=== PATIENT | male | born 1930 | race Caucasian/White ===

== ENCOUNTER → 2016-10-26 | Outpatient (CLI) | payer BC ==
[2016-10-26 11:34] LABS: Basophils % (A) 1 %; CH 30.4; CHCM 33.5; Eosinophils # (A) 0.3 k/uL (0-0.7); Eosinophils % (A) 4 %; HCT 42.3 % (39.0-53.0); HDW 2.62; HGB 13.8 gm/dL (13.0-17.5); Luc # (Auto) 0.13; Luc % (Auto) 2; Lymphocytes # (A) 2.8 k/uL (1.0-4.8); Lymphocytes % (A) 43 %; MCH 29.8 pg (25.0-35.0); MCHC 32.6 g/dL (31.0-37.0); MCV 91.3 fL (80.0-100.0); Mean Platelet Volume 6.6; Monocytes # (A) 0.4 k/uL (0-1.0); Monocytes % (A) 6 %; Neutrophils % (A) 45 %; RBC 4.63 m/uL (4.30-5.90); RDW 13.5 % (11.5-15.5); WBC 6.6 k/uL (3.8-10.6); WBC (Perox) 6.61
[2016-10-26 11:53] LABS: ALT 48 U/L (21-72); AST 37 U/L (17-59); Alkaline Phosphatase 115 U/L (38-126); Anion Gap 13 mmol/L; Blood Urea Nitrogen 22 mg/dL (9-20); Calcium 9.4 mg/dL (8.4-10.2); Carbon Dioxide 27 mmol/L (22-30); Chloride 103 mmol/L (98-107); Cholesterol 242 mg/dL (<200); Glucose 101 mg/dL (74-99); HDL Cholesterol 42 mg/dL (40-60); Non-African American GFR(MDRD) >60 (>60 ml/min/1.73 sqM); Potassium 4.9 mmol/L (3.5-5.1); Sodium 143 mmol/L (137-145); Total Bilirubin 0.5 mg/dL (0.2-1.3); Total Protein 7.9 g/dL (6.3-8.2); Triglycerides 233 mg/dL (<150)
[2016-10-26 12:25] LABS: Prostate Specific Antigen 2.11 ng/mL (0.00-4.00)
[2016-10-26 12:29] LABS: Hemoglobin A1C 5.7 % (4.2-6.1)
== END | disposition home or self-care (01) ==
LOC: LABWHC1 10:48
PROVIDERS: ATTEND Internal Medicine Geriatric Medicine
DX: N18.9 Chronic kidney disease, unspecified (principal); K21.9 Gastro-esophageal reflux disease without esophagitis; R73.9 Hyperglycemia, unspecified; E78.00 Pure hypercholesterolemia, unspecified; N40.0 Benign prostatic hyperplasia without lower urinary tract symptoms; E03.9 Hypothyroidism, unspecified
CPT/HCPCS: 36415; 80053; 80061; 83036; 84153; 84439; 84443; 85025

== ENCOUNTER 2016-12-12 14:12 | Emergency (ER) | payer BC ==
[2016-12-12] MEDS ORDERED: ACETAMINOPHEN TAB 500 MG TAB PO STA (14:43)
--- NOTE | 2016-12-12 14:48 | ED ---
General Adult HPI - General Chief complaint: Upper Respiratory Infection Stated complaint: Chest Congestion/Pain Time Seen by Provider: 12/12/16 14:24 Source: patient, family, RN notes reviewed, old records reviewed Mode of arrival: wheelchair - History of Present Illness Initial comments: Chief complaint and history of present illness this 86-year-old male here with his family. The patient reports approximately one week ago he was started on azithromycin and a steroid pack because of bronchitis symptoms. He reports she started feeling better after day or 2 when he coughed brought phlegm up. Now he has a dry cough, frequently, which makes it difficult to sleep. Planes of anterior chest wall discomfort with coughing. Reproducible with coughing. All systems are reviewed. Past medical problems significant for CVA of which there weren't any persistent deficits. History of hypertension, renal calculus one time. Denies any surgeries. Family history diabetes. ALLERGIES none nonsmoker nondrinker. - Related Data Home Medications Medication Instructions Recorded Confirmed amLODIPine BES/OLMESARTAN MED 1 tab PO DAILY 01/15/15 12/12/16 [Elsa 10-20 mg Tablet] Loratadine-Pseudoeph 10-240 mg 1 tab PO DAILY PRN 01/16/15 12/12/16 [Claritin-D 24 Hr] Aspirin 325 mg PO DAILY PRN 01/20/16 12/12/16 Azithromycin [Zithromax Z-pack] See Taper PO DIRECTED 12/12/16 12/12/16 methylPREDNISolone [Medrol Dose See Taper PO DAILY 12/12/16 12/12/16 Pack] Previous Rx's Medication Instructions Recorded Benzonatate [Tessalon Perles] 100 mg PO TID PRN #15 capsule 12/12/16 Oseltamivir [Tamiflu] 75 mg PO Q12HR #10 cap 12/12/16 Allergies Allergy/AdvReac Type Severity Reaction Status Date / Time No Known Allergies Allergy Verified 12/12/16 14:29 Review of Systems ROS Statement: Those systems with pertinent positive or pertinent negative responses have been documented in the HPI. ROS Other: All systems not noted in ROS Statement are negative. Past Medical History Past Medical History: CVA/TIA, Hypertension Additional Past Medical History / Comment(s): HX RENAL CALCULUS History of Any Multi-Drug Resistant Organisms: None Reported Past Surgical History: No Surgical Hx Reported Additional Past Surgical History / Comment(s): colonoscopy Past Anesthesia/Blood Transfusion Reactions: No Reported Reaction Additional Past Anesthesia/Blood Transfusion Reaction / Comment(s): NO FAMILY HX KNOWN Past Psychological History: No Psychological Hx Reported Smoking Status: Never smoker Past Alcohol Use History: None Reported Past Drug Use History: None Reported General Exam - General Exam Comments Initial Comments: My physical exam; patient's only complaint is that of a cough and frequent coughing has caused upper abdominal and lower chest muscle pain. He starts coughing he has difficulty stopping. Just finishing a Z-Aureliano and steroids. Vital signs temp 101.2 pulse 62 her story rate 18 pulse ox 96% room air blood pressure 130/77. Mildly elevated systolic noted. The patient will be following up with his family physician in the next 1-4 weeks. General: Eye: Pupils are equal, round and reactive to light, extra-ocular movements are intact ; there is normal conjunctiva bilaterally. No signs of icterus. Ears, nose, mouth and throat: There are moist mucous membranes and no oral lesions. Neck: The neck is supple, there is no tenderness , no anterior cervical lymphadenopathy, no carotid bruit. Cardiovascular: There is a regular rate and rhythm. No murmur, rub or gallop is appreciated. Respiratory: Lungs are clear to auscultation, respirations are non-labored, breath sounds are equal. No wheezes, stridor, rales, or rhonchi. Planes of a dry hacking cough persistent. Difficult to sleep with it. Causing lower chest and upper abdominal muscle discomfort which is reproducible. Gastrointestinal: Soft, non-distended, non-tender abdomen without masses or organomegaly noted. There is no rebound or guarding present. No CVA tenderness. Bowel sounds are unremarkable. Back: No complaint of back pain. Musculoskeletal: Normal ROM, no tenderness, There is no pedal edema. There is no calf tenderness or swelling. Sensation intact. Pulses equal bilaterally 2+. Neurological: No neuro deficits noted or complained of. Skin: Skin is warm and dry and no rashes or lesions are noted. Course Vital Signs 12/12/16 12/12/16 14:13 14:50 Temperature 101.2 F H Pulse Rate 62 Respiratory 18 16 Rate Blood Pressure 138/77 O2 Sat by Pulse 96 Oximetry EKG Findings - EKG Comments: EKG Findings:: EKG was done and reviewed at 1455 showing normal sinus rhythm age undetermined inferior infarct. No acute ST elevation no ectopy no ischemic changes. Rate 87 MS interval is 158 QRS [address] QT [address] Thurston. This EKG was compared to one done on 07/07/2015 and they have very similar. Dr. Thurston Medical Decision Making - Medical Decision Making Medical decision making; the patient was positive for influenza B. Chest x-ray was done and reviewed by radiologist his findings are there is a chronic parenchymal changes without suspicious no focal airspace opacity, pleural effusion, or pneumothorax seen. Cardiac silhouette size is within normal limits with ectatic thoracic aorta. The osseous structures are intact. Impression; no suspicious acute pulmonary process. No significant change from prior. As read by Dr. zarco The patient will be started on Tamiflu, Cipro milligrams twice a day for 5 days. Told increase his fluids. Use Tylenol or ibuprofen for control of fever. Also Tessalon Perles to control his cough. Advised to follow-up with family physician. - Lab Data Lab Results 12/12/16 Range/Units 14:45 Influenza Type A RNA Not Detected (Not Detectd) Influenza Type B (PCR) Detected H (Not Detectd) Disposition Clinical Impression: Influenza B Disposition: HOME SELF-CARE Condition: Fair Instructions: Influenza (ED) Additional Instructions: Increase fluids. Use Tylenol or ibuprofen for fever. Take Tamiflu one tablet twice day for 5 days. Use Tessalon Perles to control cough as directed. Follow -up with family physician. Prescriptions: Benzonatate [Tessalon Perles] 100 mg PO TID PRN #15 capsule PRN Reason: Cough Oseltamivir [Tamiflu] 75 mg PO Q12HR #10 cap Time of Disposition: 15:48
--- NOTE | 2016-12-12 15:34 | XR ---
EXAMINATION TYPE: XR chest 2V DATE OF EXAM: 12/12/2016 3:23 PM COMPARISON: Prior chest x-ray December 04, 2014. HISTORY: Cough and fever. TECHNIQUE: Frontal and lateral views of the chest are obtained. FINDINGS: There is chronic parenchymal change without suspicious new focal air space opacity, pleura l effusion, or pneumothorax seen. The cardiac silhouette size is within normal limits with ectatic t horacic aorta. The osseous structures are intact. IMPRESSION: No suspicious acute pulmonary process. No significant change from prior.
[2016-12-12 16:06] VITALS: BP 140/56; PULSE 81; RESP 20; TEMP 100
== END 2016-12-12 16:01 | disposition home or self-care (01) ==
LOC: EC 14:12
DX: J11.1 Influenza due to unidentified influenza virus with other respiratory manifestations (principal); I10 Essential (primary) hypertension; Z79.82 Long term (current) use of aspirin; Z86.73 Personal history of transient ischemic attack (TIA), and cerebral infarction without residual deficits; Z79.899 Other long term (current) drug therapy
CPT/HCPCS: 71020; 87502; 93005; 99284

== ENCOUNTER 2016-12-16 16:23 | Emergency (ER) | payer BC ==
[2016-12-16 16:33] VITALS: BP 106/58; RESP 16; TEMP 98
[2016-12-16] MEDS ORDERED: IPRATROPIUM-ALBUTEROL 3 ML NEB INHALATION STA (17:10)
--- NOTE | 2016-12-16 17:15 | ED ---
URI HPI - General Chief Complaint: Upper Respiratory Infection Stated Complaint: Does not feel good Time Seen by Provider: 12/16/16 17:02 Source: patient, RN notes reviewed Mode of arrival: wheelchair Limitations: no limitations - History of Present Illness Initial Comments: 86-year-old male presents emergency Department with chief complaint of not feeling well. Patient was diagnosed with influenza 4 days ago was placed on Tamiflu. Patient states prior to this he was sick and was seen in urgent care placed on azithromycin. Patient states that she just doesn't feeling much better at this time. He states he is having some shortness of breath and sometimes worse when he lays down. Patient denies any chest pain or chest tightness. Denies any palpitations. Patient states he has been checking his temperature at home and has been afebrile. Patient denies nausea, vomiting diarrhea constipation. Patient is not taking any [id number]. Patient denies sore throat, ear pain. Patient has mild sinus congestion. Patient has no history of CHF. He denies any history of COPD or asthma - Related Data Home Medications Medication Instructions Recorded Confirmed amLODIPine BES/OLMESARTAN MED 1 tab PO DAILY 01/15/15 12/16/16 [Elsa 10-20 mg Tablet] Aspirin 325 mg PO DAILY PRN 01/20/16 12/16/16 Loratadine 10 mg PO DAILY PRN 12/16/16 12/16/16 Previous Rx's Medication Instructions Recorded Benzonatate [Tessalon Perles] 100 mg PO TID PRN #15 capsule 12/12/16 Oseltamivir [Tamiflu] 75 mg PO Q12HR #10 cap 12/12/16 Promethaz-Cod 6.25-10 mg/5 ml 5 ml PO Q6HR PRN #120 ml 12/16/16 [Phenergan with Codeine] Allergies Allergy/AdvReac Type Severity Reaction Status Date / Time No Known Allergies Allergy Verified 12/16/16 17:20 Review of Systems ROS Statement: Those systems with pertinent positive or pertinent negative responses have been documented in the HPI. ROS Other: All systems not noted in ROS Statement are negative. Past Medical History Past Medical History: CVA/TIA, Hypertension Additional Past Medical History / Comment(s): HX RENAL CALCULUS History of Any Multi-Drug Resistant Organisms: None Reported Past Surgical History: No Surgical Hx Reported Additional Past Surgical History / Comment(s): colonoscopy Past Anesthesia/Blood Transfusion Reactions: No Reported Reaction Additional Past Anesthesia/Blood Transfusion Reaction / Comment(s): NO FAMILY HX KNOWN Past Psychological History: No Psychological Hx Reported Smoking Status: Never smoker Past Alcohol Use History: None Reported Past Drug Use History: None Reported General Exam Limitations: no limitations General appearance: alert, in no apparent distress Head exam: Present: atraumatic, normocephalic, normal inspection Eye exam: Present: normal appearance, PERRL, EOMI. Absent: scleral icterus, conjunctival injection, periorbital swelling ENT exam: Present: normal exam, normal oropharynx, mucous membranes moist, TM's normal bilaterally, normal external ear exam Neck exam: Present: normal inspection, full ROM. Absent: tenderness, meningismus, lymphadenopathy Respiratory exam: Present: rhonchi (Left base). Absent: normal lung sounds bilaterally, respiratory distress, wheezes, rales, stridor Cardiovascular Exam: Present: regular rate, normal rhythm, normal heart sounds. Absent: systolic murmur, diastolic murmur, rubs, gallop, clicks Extremities exam: Absent: pedal edema Neurological exam: Present: alert, oriented X3, CN II-XII intact Course Vital Signs 12/16/16 12/16/16 12/16/16 16:29 17:33 17:49 Temperature 98.0 F Pulse Rate 67 72 79 Respiratory 16 Rate Blood Pressure 106/58 O2 Sat by Pulse 96 Oximetry Medical Decision Making - Medical Decision Making 86-year-old male present emergency department stating that he did not feel well after diagnosis of influenza. Patient's symptoms are still consistent with influenza. Patient has known breast or distress. He does not feel better after breathing treatment. His main complaint is his cough. Patient was given a cough suppressant. Patient is advised follow-up with PCP in one to days. Return parameters were discussed. - Lab Data Result diagrams: 12/16/16 17:25 12/16/16 18:19 Lab Results 12/16/16 12/16/16 12/16/16 Range/Units 17:25 17:25 18:19 WBC 7.1 (3.8-10.6) k/uL RBC 4.54 (4.30-5.90) m/uL Hgb 13.8 (13.0-17.5) gm/dL Hct 40.9 (39.0-53.0) % MCV 90.1 (80.0-100.0) fL MCH 30.4 (25.0-35.0) pg MCHC 33.7 (31.0-37.0) g/dL RDW 13.9 (11.5-15.5) % Plt Count 141 L (150-450) k/uL Neutrophils % (Manual) 38.0 % Band Neutrophils % 1.0 % Lymphocytes % (Manual) 60.0 % Monocytes % (Manual) 1.0 % Neutrophils # (Manual) 2.8 (1.3-7.7) k/uL Lymphocytes # (Manual) 4.3 (1.0-4.8) k/uL Monocytes # (Manual) 0.1 (0-1.0) k/uL Nucleated RBCs 0 (0-0) /100 WBC Manual Slide Review Performed Large Platelets Present Polychromasia Present Sodium 136 L (137-145) mmol/L Potassium 4.1 (3.5-5.1) mmol/L Chloride 101 (98-107) mmol/L Carbon Dioxide 23 (22-30) mmol/L Anion Gap 12 mmol/L BUN 35 H (9-20) mg/dL Creatinine 1.20 (0.66-1.25) mg/dL Est GFR (MDRD) Af Amer >60 (>60 ml/min/1.73 sqM) Est GFR (MDRD) Non-Af 57 (>60 ml/min/1.73 sqM) Glucose 100 H (74-99) mg/dL Calcium 8.7 (8.4-10.2) mg/dL Total Bilirubin 0.6 (0.2-1.3) mg/dL AST 55 (17-59) U/L ALT 46 (21-72) U/L Alkaline Phosphatase 91 (38-126) U/L Troponin I (0.000-0.034) ng/mL NT-Pro-B Natriuret Pep 24 pg/mL Total Protein 7.2 (6.3-8.2) g/dL Albumin 3.8 (3.5-5.0) g/dL 12/16/16 Range/Units 18:19 WBC (3.8-10.6) k/uL RBC (4.30-5.90) m/uL Hgb (13.0-17.5) gm/dL Hct (39.0-53.0) % MCV (80.0-100.0) fL MCH (25.0-35.0) pg MCHC (31.0-37.0) g/dL RDW (11.5-15.5) % Plt Count (150-450) k/uL Neutrophils % (Manual) % Band Neutrophils % % Lymphocytes % (Manual) % Monocytes % (Manual) % Neutrophils # (Manual) (1.3-7.7) k/uL Lymphocytes # (Manual) (1.0-4.8) k/uL Monocytes # (Manual) (0-1.0) k/uL Nucleated RBCs (0-0) /100 WBC Manual Slide Review Large Platelets Polychromasia Sodium (137-145) mmol/L Potassium (3.5-5.1) mmol/L Chloride (98-107) mmol/L Carbon Dioxide (22-30) mmol/L Anion Gap mmol/L BUN (9-20) mg/dL Creatinine (0.66-1.25) mg/dL Est GFR (MDRD) Af Amer (>60 ml/min/1.73 sqM) Est GFR (MDRD) Non-Af (>60 ml/min/1.73 sqM) Glucose (74-99) mg/dL Calcium (8.4-10.2) mg/dL Total Bilirubin (0.2-1.3) mg/dL AST (17-59) U/L ALT (21-72) U/L Alkaline Phosphatase (38-126) U/L Troponin I <0.012 (0.000-0.034) ng/mL NT-Pro-B Natriuret Pep pg/mL Total Protein (6.3-8.2) g/dL Albumin (3.5-5.0) g/dL Disposition Clinical Impression: Influenza B, Cough Disposition: HOME SELF-CARE Condition: Stable Instructions: Influenza (ED) Additional Instructions: Please return to the Emergency Department if symptoms worsen or any other concerns. Prescriptions: Promethaz-Cod 6.25-10 mg/5 ml [Phenergan with Codeine] 5 ml PO Q6HR PRN #120 ml PRN Reason: Cough Time of Disposition: 19:13
[2016-12-16 17:50] VITALS: PULSE 79
[2016-12-16 18:03] LABS: Aty Lym Flag Slight; CH 30.9; CHCM 34.5; HCT 40.9 % (39.0-53.0); HDW 2.76; HGB 13.8 gm/dL (13.0-17.5); MCH 30.4 pg (25.0-35.0); MCHC 33.7 g/dL (31.0-37.0); MCV 90.1 fL (80.0-100.0); Mean Platelet Volume 7.3; RBC 4.54 m/uL (4.30-5.90); RDW 13.9 % (11.5-15.5); WBC 7.1 k/uL (3.8-10.6); WBC (Perox) 6.78
--- NOTE | 2016-12-16 18:07 | XR ---
EXAMINATION TYPE: XR chest 2V DATE OF EXAM: 12/16/2016 6:01 PM COMPARISON: 12/12/2016 HISTORY: Cough and congestion for one week. Patient diagnosed with influenza B. TECHNIQUE: Frontal and lateral views of the chest are obtained. FINDINGS: Again there are chronic prominent interstitial lung markings, unchanged from the prior exa m. Cardiomediastinal silhouette is also within normal limits and unchanged from the prior exam. There is again ectasia of the descending thoracic aorta. No new focal opacity is seen. The osseous structu res are intact. IMPRESSION: Unchanged exam from the prior with no new focal consolidation.
[2016-12-16 18:17] LABS: Add Differential Manual Differential
[2016-12-16 18:20] LABS: Large Platelets Present; Manual Review Performed; Nucleated Red Blood Cells 0 /100 WBC (0-0); Polychromasia Present; Total Cells Counted 100
[2016-12-16 18:43] LABS: ALT 46 U/L (21-72); AST 55 U/L (17-59); Alkaline Phosphatase 91 U/L (38-126); Anion Gap 12 mmol/L; Blood Urea Nitrogen 35 mg/dL (9-20); Calcium 8.7 mg/dL (8.4-10.2); Carbon Dioxide 23 mmol/L (22-30); Chloride 101 mmol/L (98-107); Glucose 100 mg/dL (74-99); Non-African American GFR(MDRD) 57 (>60 ml/min/1.73 sqM); Potassium 4.1 mmol/L (3.5-5.1); Sodium 136 mmol/L (137-145); Total Bilirubin 0.6 mg/dL (0.2-1.3); Total Protein 7.2 g/dL (6.3-8.2)
== END 2016-12-16 19:23 | disposition home or self-care (01) ==
LOC: EC 16:23
DX: J11.1 Influenza due to unidentified influenza virus with other respiratory manifestations (principal); I10 Essential (primary) hypertension; Z79.82 Long term (current) use of aspirin; Z79.899 Other long term (current) drug therapy; Z86.73 Personal history of transient ischemic attack (TIA), and cerebral infarction without residual deficits
CPT/HCPCS: 36415; 71020; 80053; 83880; 84484; 85025; 87040; 94640; 99284

== ENCOUNTER → 2017-05-19 | Outpatient (CLI) | payer BC ==
[2017-05-19 09:29] LABS: Basophils % (A) 1 %; CH 30.9; CHCM 33.5; Eosinophils # (A) 0.2 k/uL (0-0.7); Eosinophils % (A) 3 %; HCT 44.4 % (39.0-53.0); HDW 2.67; HGB 14.5 gm/dL (13.0-17.5); Luc # (Auto) 0.11; Luc % (Auto) 2; Lymphocytes # (A) 2.5 k/uL (1.0-4.8); Lymphocytes % (A) 40 %; MCH 30.4 pg (25.0-35.0); MCHC 32.8 g/dL (31.0-37.0); MCV 92.7 fL (80.0-100.0); Mean Platelet Volume 7.5; Monocytes # (A) 0.5 k/uL (0-1.0); Monocytes % (A) 7 %; Neutrophils % (A) 47 %; RBC 4.79 m/uL (4.30-5.90); RDW 14.2 % (11.5-15.5); WBC 6.3 k/uL (3.8-10.6); WBC (Perox) 6.45
[2017-05-19 10:28] LABS: ALT 51 U/L (21-72); AST 34 U/L (17-59); Alkaline Phosphatase 126 U/L (38-126); Anion Gap 14 mmol/L; Blood Urea Nitrogen 16 mg/dL (9-20); Calcium 9.6 mg/dL (8.4-10.2); Carbon Dioxide 26 mmol/L (22-30); Chloride 103 mmol/L (98-107); Cholesterol 213 mg/dL (<200); Glucose 102 mg/dL (74-99); HDL Cholesterol 35 mg/dL (40-60); Non-African American GFR(MDRD) >60 (>60 ml/min/1.73 sqM); Potassium 4.6 mmol/L (3.5-5.1); Sodium 143 mmol/L (137-145); Total Bilirubin 0.4 mg/dL (0.2-1.3); Total Protein 7.7 g/dL (6.3-8.2)
== END | disposition home or self-care (01) ==
LOC: LABWHC1 08:49
PROVIDERS: ATTEND Internal Medicine Geriatric Medicine
DX: E78.00 Pure hypercholesterolemia, unspecified (principal); E03.9 Hypothyroidism, unspecified; I10 Essential (primary) hypertension; R73.9 Hyperglycemia, unspecified
CPT/HCPCS: 36415; 80053; 80061; 83036; 84439; 84443; 85025

== ENCOUNTER → 2017-07-01 | Outpatient (CLI) | payer BC ==
--- NOTE | 2017-07-01 16:03 | XR ---
EXAMINATION TYPE: XR foot complete RT DATE OF EXAM: 07/01/2017 CLINICAL HISTORY: Right great toe and arch of foot pain for one month with no known injury TECHNIQUE: Frontal, lateral, and oblique images of the right foot are obtained. COMPARISON: None FINDINGS: There is no acute fracture/dislocation evident in the right foot. There is flattening of t he usual midfoot arch despite nonweightbearing image. Moderate osteoarthropathy is seen of the distal interphalangeal joints, first metatarsal phalangeal joint, and first tarsometatarsal joint demonstra angelo as marginal osteophytes, subchondral sclerosis, and joint space narrowing. Enthesophyte is seen a t the insertion of the Proteus brevis and Achilles tendons. Osseous mineralization is within normal l imits. IMPRESSION: 1. There is no acute fracture or dislocation in the right foot. 2. 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 3. Peroneus brevis and Achilles enthesophytes. 4. Pes planus.
== END | disposition home or self-care (01) ==
LOC: RADXRMAIN 14:51
PROVIDERS: ATTEND Physician Assistant
DX: M19.071 Primary osteoarthritis, right ankle and foot (principal); M21.41 Flat foot [pes planus] (acquired), right foot
CPT/HCPCS: 84550; 85025

== ENCOUNTER 2018-02-19 15:10 | Emergency (ER) | payer MEDICARE, BC ==
[2018-02-19 15:28] VITALS: RESP 18; TEMP 98.7
[2018-02-19] MEDS ORDERED: MORPHINE SULFATE 4 MG/ML SYRINGE IV STA (15:37)
[2018-02-19] MEDS ORDERED: ONDANSETRON 4 MG/2 ML VIAL IVP STA (15:37)
[2018-02-19] MEDS ORDERED: SODIUM CHLORIDE 0.9% 1,000 ML IV STA (15:37)
[2018-02-19] MEDS ORDERED: SODIUM CHLORIDE 0.9% 500 ML IV STA (15:37)
--- NOTE | 2018-02-19 15:44 | ED ---
General Adult HPI - General Source: patient, RN notes reviewed, old records reviewed Mode of arrival: ambulatory Limitations: no limitations <Jaron Demarco - Last Filed: 02/19/18 16:30> <Hank Quinn - Last Filed: 02/19/18 19:48> - General Chief complaint: Abdominal Pain Stated complaint: gas pains/indigestion Time Seen by Provider: 02/19/18 15:37 - History of Present Illness Initial comments: This is a 87-year-old male the ER today. Patient said to the ER for evaluation of nonspecific complaints. Again abdominal pain. Bloating, gastroparesis or gastroenteritis, patient has history of gastric issues. Stomach issues and abdominal pain. Flatulence. had a fall 2 days ago he did not his had his back and his abdomen. Waiting of current pain in the right side of his body in his back on his right side of his abdomen is right flank. Belching, and feels bloated (Jaron Demarco) The patient's care is passed off to me by previous shift. He does relate to me that he has chronic abdominal pain problems. He apparently has chronic gastritis and takes Prilosec for this. The family also relates that he had a gallbladder ultrasound 2-4 years ago which apparently was somewhat abnormal. He seems to have symptoms ever since that time. The symptoms are certainly worse after eating. He is complaining of abdominal pain more on the right side at this time. (Hank Quinn) - Related Data Home Medications Medication Instructions Recorded Confirmed amLODIPine BES/OLMESARTAN MED 1 tab PO DAILY 01/15/15 12/16/16 [Elsa 10-20 mg Tablet] Aspirin 325 mg PO DAILY PRN 01/20/16 12/16/16 Loratadine 10 mg PO DAILY PRN 12/16/16 12/16/16 Previous Rx's Medication Instructions Recorded Benzonatate [Tessalon Perles] 100 mg PO TID PRN #15 capsule 12/12/16 Oseltamivir [Tamiflu] 75 mg PO Q12HR #10 cap 12/12/16 Promethaz-Cod 6.25-10 mg/5 ml 5 ml PO Q6HR PRN #120 ml 12/16/16 [Phenergan with Codeine] Ondansetron [Zofran ODT] 8 mg PO Q8HR PRN #20 tab 02/19/18 traMADol HCl [Ultram] 50 - 100 mg PO Q6H PRN #20 tab 02/19/18 Allergies Allergy/AdvReac Type Severity Reaction Status Date / Time No Known Allergies Allergy Verified 02/19/18 15:28 Review of Systems ROS Other: All systems not noted in ROS Statement are negative. <Jaron Demarco - Last Filed: 02/19/18 16:30> ROS Other: All systems not noted in ROS Statement are negative. <Hank Quinn - Last Filed: 02/19/18 19:48> ROS Statement: Those systems with pertinent positive or pertinent negative responses have been documented in the HPI. Past Medical History Past Medical History: CVA/TIA, Hypertension Additional Past Medical History / Comment(s): HX RENAL CALCULUS History of Any Multi-Drug Resistant Organisms: None Reported Past Surgical History: No Surgical Hx Reported Additional Past Surgical History / Comment(s): colonoscopy Past Anesthesia/Blood Transfusion Reactions: No Reported Reaction Additional Past Anesthesia/Blood Transfusion Reaction / Comment(s): NO FAMILY HX KNOWN Past Psychological History: No Psychological Hx Reported Smoking Status: Never smoker Past Alcohol Use History: None Reported Past Drug Use History: None Reported <Jaron Demarco - Last Filed: 02/19/18 16:30> General Exam Limitations: no limitations General appearance: alert, in no apparent distress Head exam: Present: atraumatic, normocephalic, normal inspection Eye exam: Present: normal appearance, PERRL, EOMI. Absent: scleral icterus, conjunctival injection, periorbital swelling ENT exam: Present: normal exam, mucous membranes moist Neck exam: Present: normal inspection. Absent: tenderness, meningismus, lymphadenopathy Respiratory exam: Present: normal lung sounds bilaterally. Absent: respiratory distress, wheezes, rales, rhonchi, stridor Cardiovascular Exam: Present: regular rate, normal rhythm, normal heart sounds. Absent: systolic murmur, diastolic murmur, rubs, gallop, clicks GI/Abdominal exam: Present: soft, normal bowel sounds. Absent: distended, tenderness, guarding, rebound, rigid Extremities exam: Present: normal inspection, full ROM, normal capillary refill. Absent: tenderness, pedal edema, joint swelling, calf tenderness Back exam: Present: normal inspection Neurological exam: Present: alert, oriented X3, CN II-XII intact Psychiatric exam: Present: normal affect, normal mood Skin exam: Present: warm, dry, intact, normal color. Absent: rash <Jaron Demarco - Last Filed: 02/19/18 16:30> Vital Signs 02/19/18 02/19/18 02/19/18 15:14 16:28 18:00 Temperature 98.7 F Pulse Rate 93 89 81 Respiratory 18 18 18 Rate Blood Pressure 145/77 157/89 163/90 O2 Sat by Pulse 98 98 98 Oximetry EKG Findings - EKG Comments: EKG Findings:: EKG shows sinus rhythm PVCs positive, rate of 93, DC 170, QRS 80 , QTC 440 <Jaron Demarco - Last Filed: 02/19/18 16:30> Medical Decision Making - Lab Data Result diagrams: 02/19/18 16:04 02/19/18 16:04 <Jaron Demarco - Last Filed: 02/19/18 16:30> - Lab Data Result diagrams: 02/19/18 16:04 02/19/18 16:04 <Hank Quinn - Last Filed: 02/19/18 19:48> - Medical Decision Making The patient was seen and examined. All diagnostics were reviewed. He did relate having some relief with the morphine. The computed tomography scan of the chest, abdomen, and pelvis does show evidence of COPD, coronary artery disease, liver cirrhosis, and a right pulmonary nodule. The patient states that he is aware of the right pulmonary nodule and is being followed by his doctor in this regard. The family and patient are questioning as to whether or not this could be related to his gallbladder. The gallbladder ultrasound is ordered. The gallbladder ultrasound does show a significant amount of sludge. There is no gallbladder wall thickening or pericholecystic fluid. It is felt as though, after further long discussion with patient and family, that his symptoms very likely are related to his gallbladder. He may benefit from cholecystectomy but certainly would need medical clearance. They are related to Dr. Nabil Shin and will follow-up with him tomorrow for further evaluation and possible surgical referral. Diet therapy is discussed in detail. (Hank Quinn) - Lab Data Lab Results 02/19/18 02/19/18 02/19/18 Range/Units 16:04 16:04 16:04 WBC 12.2 H (3.8-10.6) k/uL RBC 4.60 (4.30-5.90) m/uL Hgb 13.7 (13.0-17.5) gm/dL Hct 40.3 (39.0-53.0) % MCV 87.5 (80.0-100.0) fL MCH 29.8 (25.0-35.0) pg MCHC 34.0 (31.0-37.0) g/dL RDW 13.4 (11.5-15.5) % Plt Count 217 (150-450) k/uL Neutrophils % 77 % Lymphocytes % 15 % Monocytes % 6 % Eosinophils % 1 % Basophils % 0 % Neutrophils # 9.4 H (1.3-7.7) k/uL Lymphocytes # 1.9 (1.0-4.8) k/uL Monocytes # 0.7 (0-1.0) k/uL Eosinophils # 0.1 (0-0.7) k/uL Basophils # 0.0 (0-0.2) k/uL Sodium 139 (137-145) mmol/L Potassium 4.7 (3.5-5.1) mmol/L Chloride 100 (98-107) mmol/L Carbon Dioxide 23 (22-30) mmol/L Anion Gap 16 mmol/L BUN 18 (9-20) mg/dL Creatinine 0.90 (0.66-1.25) mg/dL Est GFR (CKD-EPI)AfAm 88 (>60 ml/min/1.73 sqM) Est GFR (CKD-EPI)NonAf 77 (>60 ml/min/1.73 sqM) Glucose 118 H (74-99) mg/dL Plasma Lactic Acid Akhil (0.7-2.0) mmol/L Calcium 9.4 (8.4-10.2) mg/dL Total Bilirubin 0.5 (0.2-1.3) mg/dL AST 39 (17-59) U/L ALT 32 (21-72) U/L Alkaline Phosphatase 110 (38-126) U/L Total Creatine Kinase 148 (55-170) U/L CK-MB (CK-2) 1.9 (0.0-2.4) ng/mL CK-MB (CK-2) Rel Index 1.3 Troponin I <0.012 (0.000-0.034) ng/mL Total Protein 7.7 (6.3-8.2) g/dL Albumin 4.4 (3.5-5.0) g/dL Amylase 60 (30-110) U/L Lipase 51 (23-300) U/L Urine Color Urine Appearance (Clear) Urine pH (5.0-8.0) Ur Specific Lawrence (1.001-1.035) Urine Protein (Negative) Urine Glucose (UA) (Negative) Urine Ketones (Negative) Urine Blood (Negative) Urine Nitrite (Negative) Urine Bilirubin (Negative) Urine Urobilinogen (<2.0) mg/dL Ur Leukocyte Esterase (Negative) Urine RBC (0-5) /hpf Urine WBC (0-5) /hpf Ur Squamous Epith Cells (0-4) /hpf Urine Mucus (None) /hpf 02/19/18 02/19/18 Range/Units 16:04 17:30 WBC (3.8-10.6) k/uL RBC (4.30-5.90) m/uL Hgb (13.0-17.5) gm/dL Hct (39.0-53.0) % MCV (80.0-100.0) fL MCH (25.0-35.0) pg MCHC (31.0-37.0) g/dL RDW (11.5-15.5) % Plt Count (150-450) k/uL Neutrophils % % Lymphocytes % % Monocytes % % Eosinophils % % Basophils % % Neutrophils # (1.3-7.7) k/uL Lymphocytes # (1.0-4.8) k/uL Monocytes # (0-1.0) k/uL Eosinophils # (0-0.7) k/uL Basophils # (0-0.2) k/uL Sodium (137-145) mmol/L Potassium (3.5-5.1) mmol/L Chloride (98-107) mmol/L Carbon Dioxide (22-30) mmol/L Anion Gap mmol/L BUN (9-20) mg/dL Creatinine (0.66-1.25) mg/dL Est GFR (CKD-EPI)AfAm (>60 ml/min/1.73 sqM) Est GFR (CKD-EPI)NonAf (>60 ml/min/1.73 sqM) Glucose (74-99) mg/dL Plasma Lactic Acid Akhil 2.0 (0.7-2.0) mmol/L Calcium (8.4-10.2) mg/dL Total Bilirubin (0.2-1.3) mg/dL AST (17-59) U/L ALT (21-72) U/L Alkaline Phosphatase (38-126) U/L Total Creatine Kinase (55-170) U/L CK-MB (CK-2) (0.0-2.4) ng/mL CK-MB (CK-2) Rel Index Troponin I (0.000-0.034) ng/mL Total Protein (6.3-8.2) g/dL Albumin (3.5-5.0) g/dL Amylase (30-110) U/L Lipase (23-300) U/L Urine Color Light Yellow Urine Appearance Clear (Clear) Urine pH 7.0 (5.0-8.0) Ur Specific Lawrence 1.027 (1.001-1.035) Urine Protein Negative (Negative) Urine Glucose (UA) Negative (Negative) Urine Ketones Negative (Negative) Urine Blood Small H (Negative) Urine Nitrite Negative (Negative) Urine Bilirubin Negative (Negative) Urine Urobilinogen <2.0 (<2.0) mg/dL Ur Leukocyte Esterase Negative (Negative) Urine RBC 15 H (0-5) /hpf Urine WBC 1 (0-5) /hpf Ur Squamous Epith Cells 1 (0-4) /hpf Urine Mucus Rare H (None) /hpf Disposition <Jaron Demarco - Last Filed: 02/19/18 16:30> Is patient prescribed a controlled substance at d/c from ED?: No Time of Disposition: 19:47 <Hank Quinn - Last Filed: 02/19/18 19:48> Clinical Impression: Abdominal pain, Hypertension, Gallbladder sludge, Nausea Disposition: HOME SELF-CARE Condition: Good Instructions: Abdominal Pain (ED), Hypertension (ED), Gallstones (ED), Low Fat Diet (ED) Prescriptions: Ondansetron [Zofran ODT] 8 mg PO Q8HR PRN #20 tab PRN Reason: Nausea traMADol HCl [Ultram] 50 - 100 mg PO Q6H PRN #20 tab PRN Reason: Pain Referrals: Nabil Shin MD [Primary Care Provider] - 1-2 days
[2018-02-19 16:19] LABS: Basophils % (A) 0 %; Eosinophils # (A) 0.1 k/uL (0-0.7); Eosinophils % (A) 1 %; HCT 40.3 % (39.0-53.0); HGB 13.7 gm/dL (13.0-17.5); Lymphocytes # (A) 1.9 k/uL (1.0-4.8); Lymphocytes % (A) 15 %; MCH 29.8 pg (25.0-35.0); MCV 87.5 fL (80.0-100.0); Mean Platelet Volume 6.9; Monocytes # (A) 0.7 k/uL (0-1.0); Monocytes % (A) 6 %; Neutrophils # (A) 9.4 k/uL (1.3-7.7); Neutrophils % (A) 77 %; Platelet Count 217 k/uL (150-450); RDW 13.4 % (11.5-15.5); WBC 12.2 k/uL (3.8-10.6)
[2018-02-19] MEDS ORDERED: RX INFO: IV CONTRAST WAS GIVEN 1 EACH MISC MISCELLANE PRN (16:24)
[2018-02-19 16:28] LABS: Albumin 4.4 g/dL (3.5-5.0); Calcium 9.4 mg/dL (8.4-10.2); Potassium 4.7 mmol/L (3.5-5.1); Total Bilirubin 0.5 mg/dL (0.2-1.3); Total Protein 7.7 g/dL (6.3-8.2)
[2018-02-19 16:34] LABS: Creatine Kinase 148 U/L (55-170)
--- NOTE | 2018-02-19 16:44 | XR ---
EXAMINATION TYPE: XR KUB DATE OF EXAM: 02/19/2018 CLINICAL DATA: 87-year-old male abdominal pain, PHH COMPARISON: 09/21/2010 FINDINGS: Lung bases are clear. Supine imaging limited for assessment of free intraperitoneal air. Borderline air distended small bowel loops such as in the mid and left abdomen measure up to 3.0 cm. However, colonic gas remains with mild stool burden particularly on the right. Tiny pelvic phleboliths. IMPRESSION: Nonspecific, overall nonobstructive bowel gas pattern. Some borderline distended small bowel loops in the left abdomen suggest regional ileus or enteritis.
[2018-02-19 16:47] LABS: Creatine Kinase MB 1.9 ng/mL (0.0-2.4); Troponin I <0.012 ng/mL (0.000-0.034)
--- NOTE | 2018-02-19 17:10 | CT ---
EXAMINATION TYPE: CT ChestAbdPelvis w con DATE OF EXAM: 02/19/2018 COMPARISON: Abdomen and pelvis 11/25/2014 HISTORY: 87-year-old male Gas pain and bloating to abdomen. TECHNIQUE: Contiguous axial scanning of the chest, abdomen, and pelvis performed with IV Contrast, pa tient injected with 100 mL of Isovue 300. Delayed images through the kidneys were obtained. Coronal/s agittal reconstructions performed. CT DLP: 1160.6 mGycm Automated exposure control for dose reduction was used. FINDINGS: Chest: Partially visualized hypodense lesion right lobe of thyroid gland measuring up to 1 cm. This can be f urther evaluated with dedicated thyroid ultrasound. Heart is normal size without pericardial effusion. Coronary vessel calcifications are present and are a marker for coronary artery disease. Ascending aorta is ectatic at 3.8 cm. There is conventional arch vessel branching anatomy with mild a therosclerotic calcification. Mild aneurysm upper descending thoracic aorta at 3.4 cm and aortic tort uosity. The distal descending thoracic aorta is ectatic at 2.7 cm. Scattered small mediastinal lymph nodes. No thoracic lymphadenopathy by CT size criteria. There is large caliber to the main right and left pulmonary arteries at 3.3 and 2.8 cm, respectively, suggesting underlying pulmonary arterial hypertension. Evaluation of the lungs shows mild bronchial wall thickening. A few scattered emphysematous cysts are present. Strandy atelectasis and possibly some mild interstitial fibrotic changes at the lung bases. 8 mm right middle lobe pulmonary nodule, axial image 37 can be reassessed in 6 months. ABDOMEN: There is nodular contour of the liver. This is compatible with underlying cirrhosis. Portal venous sy stem appears patent. No biliary ductal dilatation. Gallbladder hydropic measuring 5.0 cm wide. There is some dependent tiny calculi within. Adrenal glands, spleen, and mildly atrophic pancreas shows no gross abnormal. Subcentimeter hypodensity medial lower pole right kidney too small fractures CT characterization and was also seen back in 2014 suggesting a cortical cyst. 4 mm nonobstructive calculus upper pole left k idney and a large 6.8 cm cyst lower pole left kidney. Moderate atherosclerotic calcifications within the abdominal aorta and iliac arteries. Mildly aneurys mal bilateral common iliac arteries measuring 2.0 cm each on coronal series. No dilated small bowel, free fluid, or free air. Normal appendix. Diffuse colonic diverticulosis with out pericolonic inflammatory change. Pelvis: Bladder is urine distended. No abnormal fluid collection in the pelvis or pelvic lymphadenopathy. Bones: Degenerative changes at the hips, right SI joint, and mid to lower lumbar spine. No osseous destructi ve process. Endplate spondylosis mid to lower thoracic spine. IMPRESSION: 1. CAD, COPD WITH MILD EMPHYSEMA, AND PULMONARY ARTERIAL HYPERTENSION. 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 2. AN 8 MM RIGHT MIDDLE LOBE PULMONARY NODULE. RECOMMEND 6 MONTH FOLLOW-UP CT CHEST TO REASSESS. 3. CIRRHOTIC MORPHOLOGY OF THE LIVER. APPROPRIATE FOLLOW-UP AND MANAGEMENT RECOMMENDED. 4. GALLBLADDER HYDROPS WITH CHOLELITHIASIS. THIS MAY BE SECONDARY TO FASTING STATE. IF CONCERN FOR EA RLY ACUTE CHOLECYSTITIS, FOLLOW-UP ULTRASOUND OR HIDA SCAN. 5. GENERALIZED COLONIC DIVERTICULOSIS WITHOUT ACUTE DIVERTICULITIS. 6. NONOBSTRUCTIVE 4 MM LEFT RENAL CALCULUS. A LARGE 6.8 CM LEFT RENAL CYST IS ALSO NOTED. 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
[2018-02-19 18:24] LABS: Appearance,Urine Clear (Clear); Bilirubin,Urine Negative (Negative); Blood,Urine Small (Negative); Color,Urine Light Yellow; Glucose,Urine (UA) Negative (Negative); Ketones,Urine Negative (Negative); Leukocyte Esterase,Urine Negative (Negative); Mucus,Urine Rare /hpf; Nitrite,Urine Negative (Negative); Protein,Urine Negative (Negative); RBC,Urine 15 /hpf (0-5); Specific Gravity,Urine 1.027 (1.001-1.035); Squamous Epithelial Cell,Urine 1 /hpf (0-4); Urobilinogen,Urine <2.0 mg/dL (<2.0); WBC,Urine 1 /hpf (0-5)
[2018-02-19] MEDS ORDERED: METOCLOPRAMIDE 5 MG/ML 2 ML VIAL IVP STA (18:27)
--- NOTE | 2018-02-19 19:30 | US ---
EXAMINATION TYPE: US gallbladder DATE OF EXAM: 02/19/2018 COMPARISON: Ultrasound 12/04/2014 CLINICAL HISTORY: 87-year-old male with pressure in the right upper quadrant with nausea and gas buil d up. TECHNIQUE: Multiple sonographic images of the right upper quadrant are obtained. FINDINGS: EXAM MEASUREMENTS: Liver Length: 13.6 cm Gallbladder Wall: 0.2 cm CBD: 0.7 cm Right Kidney: 8.9 x 4.6 x 5.4 cm Card Tape Converter Operator notes: Limited due to bowel gas. Pancreas: Tail obscured by overlying bowel gas Liver: Normal size. There is nodular contour (refer to image 22) and slight heterogeneous echotextur e. No focal lesion seen. Gallbladder: Layering echogenic sludge. There is borderline to mild hydropic gallbladder measuring 4. 8 cm wide. Abnormal wall thickening or pericholecystic fluid. Evidence for sonographic Hinds's sign: No CBD: Mildly dilated but wnl for patient's age. Right Kidney: Hypoechoic structure noted mid pole measuring 1.8 x 2.1 x 1.9 cm, not seen previously No hydronephrosis. IMPRESSION: 1. Suspect underlying cirrhosis. Further clinical correlation is advised. 2. Layering echogenic sludge in the gallbladder. The gallbladder is also borderline to mildly distend ed. However, there are no additional findings of acute cholecystitis. Excessive distention may be sec ondary to fasting state. If concern for early acute cholecystitis, follow-up can be performed. 3. A 2.1 cm hypoechoic lesion in the mid right kidney. This could represent a cyst with echoes being artifactual or representing debris. As a solid lesion is not excluded at this time, a 3-6 month follo w-up ultrasound is recommended to reassess.
[2018-02-19 19:46] VITALS: BP 148/73; PULSE 76
== END 2018-02-19 20:00 | disposition home or self-care (01) ==
LOC: EC 15:10
DX: K82.8 Other specified diseases of gallbladder (principal); I10 Essential (primary) hypertension; J44.9 Chronic obstructive pulmonary disease, unspecified; I25.10 Atherosclerotic heart disease of native coronary artery without angina pectoris; K74.60 Unspecified cirrhosis of liver; R91.1 Solitary pulmonary nodule; Z86.73 Personal history of transient ischemic attack (TIA), and cerebral infarction without residual deficits; Z87.442 Personal history of urinary calculi; Z79.899 Other long term (current) drug therapy
CPT/HCPCS: 36415; 80053; 82150; 82550; 82553; 83605; 83690; 84484; 85025; 81001; 87086; 74018; 76705; 71260; 74177; 99285; 96374; 96375 ×2; 96361 ×4; J2270; J2765; J2405; Q9967

== ENCOUNTER 2018-02-23 23:37 | Inpatient (IN) | payer MEDICARE, BC ==
[2018-02-24] MEDS ORDERED: SODIUM CHLORIDE 0.9% 500 ML IV STA (00:05)
--- NOTE | 2018-02-24 00:40 | ED ---
General Adult HPI - General Chief complaint: Abdominal Pain Stated complaint: Burping, Flank Pain Time Seen by Provider: 02/23/18 23:51 Source: patient Mode of arrival: wheelchair Limitations: no limitations - History of Present Illness Initial comments: This is an 87-year-old male with a history of TIA, GERD, hypertension who presents emergent department for multiple different complaints. It seems that the main complaint that brought him in was excessive hiccups and burping. The patient has been worked up over the last 5 or 6 days for epigastric abdominal pain and right upper quadrant pain. He is found to have gallbladder stones and sludge. He is scheduled to have a cholecystectomy early next week however tonight when he had excessive burping is feeling became concerned and brought him in. He does state that he was on tramadol recently for the abdominal pain however was since weaned off because it was causing mental status changes. He has been on Tylenol with good pain control. He does admit to a little bit of diarrhea and difficult to urination however it seems that these are chronic complaints. No chest pain or shortness of breath. No fevers or chills. No other acute complaints. His surgeon is Dr. Pelayo and his primary doctor's Dr. Dawson. - Related Data Home Medications Medication Instructions Recorded Confirmed amLODIPine BES/OLMESARTAN MED 1 tab PO 1700 01/15/15 02/23/18 [Elsa 10-20 mg Tablet] Loratadine 10 mg PO DAILY PRN 12/16/16 02/23/18 Previous Rx's Medication Instructions Recorded Ondansetron [Zofran ODT] 8 mg PO Q8HR PRN #20 tab 02/19/18 traMADol HCl [Ultram] 50 - 100 mg PO Q6H PRN #20 tab 02/19/18 Allergies Allergy/AdvReac Type Severity Reaction Status Date / Time No Known Allergies Allergy Verified 02/23/18 23:47 Review of Systems ROS Statement: Those systems with pertinent positive or pertinent negative responses have been documented in the HPI. ROS Other: All systems not noted in ROS Statement are negative. Past Medical History Past Medical History: CVA/TIA, GERD/Reflux, Hypertension Additional Past Medical History / Comment(s): HX RENAL CALCULUS, TIA 7-8 yrs ago-, "sluggy gall bladder", elevated liver enzymes in past, History of Any Multi-Drug Resistant Organisms: None Reported Past Surgical History: No Surgical Hx Reported Additional Past Surgical History / Comment(s): colonoscopy, jane cataracts Past Anesthesia/Blood Transfusion Reactions: No Reported Reaction Additional Past Anesthesia/Blood Transfusion Reaction / Comment(s): NO FAMILY HX KNOWN Past Psychological History: No Psychological Hx Reported Smoking Status: Never smoker Past Alcohol Use History: None Reported Past Drug Use History: None Reported - Past Family History Mother Family Medical History: Unable to Obtain General Exam - General Exam Comments Initial Comments: Constitutional: Awake alert Appears comfortable Head: Normocephalic atraumatic Eyes: no conjunctival injection No scleral icterus EOMI Neck: No JVD Supple Heart: Regular rate rhythm normal S1-S2 no murmurs Lungs: Clear to auscultation bilaterally No wheezing No rales Abdomen: Soft nondistended epigastric tenderness, no rebound or guarding, intermittent hiccups Extremities: Non edematous DP pulses intact Radial pulses intact Neuro: A&Ox3 No focal neurologic deficits Psych: Appropriate mood and affect Limitations: no limitations Course Vital Signs 02/23/18 23:44 Temperature 99.2 F Pulse Rate 82 Respiratory 18 Rate Blood Pressure 103/55 O2 Sat by Pulse 95 Oximetry EKG Findings - EKG Comments: EKG Findings:: EKG showing sinus rhythm with a rate of 74. There is no abnormal ST segment changes or T-wave inversions. QTC is 437. Other intervals normal. There are occasional PVCs. Medical Decision Making - Medical Decision Making Is a 7-year-old male who came in emergency department for belching and hiccups. Was found to have a significant acute kidney injury. Creatinine is 5 and he is normally less than 1. He has been complaining of urinary retention over the last couple of days. Osborne catheter was placed after bladder scan of 330 mL. The patient was unable to urinate. He was started on gentle hydration and monitored overnight. Dr. Dawson accepts the admission. Dr. Cruz was placed on consult for nephrology. Patient family were updated and agree. - Lab Data Result diagrams: 02/24/18 00:30 02/24/18 00:30 Lab Results 02/24/18 02/24/18 Range/Units 00:30 00:30 WBC 10.5 (3.8-10.6) k/uL RBC 3.50 L (4.30-5.90) m/uL Hgb 10.6 L (13.0-17.5) gm/dL Hct 30.3 L (39.0-53.0) % MCV 86.5 (80.0-100.0) fL MCH 30.2 (25.0-35.0) pg MCHC 34.9 (31.0-37.0) g/dL RDW 13.5 (11.5-15.5) % Plt Count 224 (150-450) k/uL Neutrophils % 81 % Lymphocytes % 9 % Monocytes % 7 % Eosinophils % 2 % Basophils % 0 % Neutrophils # 8.6 H (1.3-7.7) k/uL Lymphocytes # 0.9 L (1.0-4.8) k/uL Monocytes # 0.7 (0-1.0) k/uL Eosinophils # 0.2 (0-0.7) k/uL Basophils # 0.0 (0-0.2) k/uL Sodium 125 L (137-145) mmol/L Potassium 3.5 (3.5-5.1) mmol/L Chloride 90 L (98-107) mmol/L Carbon Dioxide 16 L (22-30) mmol/L Anion Gap 19 mmol/L BUN 92 H* (9-20) mg/dL Creatinine 5.10 H* (0.66-1.25) mg/dL Est GFR (CKD-EPI)AfAm 11 (>60 ml/min/1.73 sqM) Est GFR (CKD-EPI)NonAf 9 (>60 ml/min/1.73 sqM) Glucose 112 H (74-99) mg/dL Calcium 7.9 L (8.4-10.2) mg/dL Total Bilirubin 0.7 (0.2-1.3) mg/dL AST 67 H (17-59) U/L ALT 58 (21-72) U/L Alkaline Phosphatase 164 H (38-126) U/L Total Protein 5.9 L (6.3-8.2) g/dL Albumin 3.2 L (3.5-5.0) g/dL Disposition Clinical Impression: KATIE (acute kidney injury), High anion gap metabolic acidosis, Urinary retention Disposition: ADMITTED IP TO THIS HOSP Condition: Stable
[2018-02-24 00:41] LABS: Basophils % (A) 0 %; Eosinophils # (A) 0.2 k/uL (0-0.7); Eosinophils % (A) 2 %; HCT 30.3 % (39.0-53.0); HGB 10.6 gm/dL (13.0-17.5); Lymphocytes # (A) 0.9 k/uL (1.0-4.8); Lymphocytes % (A) 9 %; MCH 30.2 pg (25.0-35.0); MCHC 34.9 g/dL (31.0-37.0); MCV 86.5 fL (80.0-100.0); Mean Platelet Volume 8.3; Monocytes # (A) 0.7 k/uL (0-1.0); Monocytes % (A) 7 %; Neutrophils # (A) 8.6 k/uL (1.3-7.7); Neutrophils % (A) 81 %; Platelet Count 224 k/uL (150-450); RDW 13.5 % (11.5-15.5); WBC 10.5 k/uL (3.8-10.6)
[2018-02-24 00:47] LABS: Albumin 3.2 g/dL (3.5-5.0); Calcium 7.9 mg/dL (8.4-10.2); Potassium 3.5 mmol/L (3.5-5.1); Total Bilirubin 0.7 mg/dL (0.2-1.3); Total Protein 5.9 g/dL (6.3-8.2)
[2018-02-24] MEDS ORDERED: CALCIUM CHLORIDE 1,000 MG in SODIUM CHLORIDE 0.9% 100 ML IVPB STA (00:58)
[2018-02-24] MEDS ORDERED: NALOXONE 0.4 MG/ML 1 ML VIAL IV PRN (01:55)
--- NOTE | 2018-02-24 01:55 | US ---
EXAMINATION TYPE: US kidneys/renal and bladder DATE OF EXAM: 02/24/2018 COMPARISON: CT & US 2018 CLINICAL HISTORY: KATIE, urinary retention. EXAM MEASUREMENTS: Right Kidney: 11.7 x 5.9 x 5.2 cm Left Kidney: 12.0 x 5.7 x 5.2 cm Right Kidney: 1.7 x 1.6 x 1.8cm hypoechoic structure mid pole Left Kidney: 0.5cm echogenic focus superior pole, 5.9 x 6.5 x 5.1cm cystic structure inferior pole Bladder: appears wnl Bilateral Jets seen: yes IMPRESSION: Small cyst in the right kidney. 6 x 5 cm cyst in the lower pole left kidney. No hydronephrosis. No ev idence of renal obstruction. Normal urinary bladder.
[2018-02-24] MEDS: SODIUM CHLORIDE 0.9% 1,000 ML IV SCH ×3 (01:56→21:55)
[2018-02-24] MEDS ORDERED: LORATADINE 10 MG TAB PO PRN (01:58)
[2018-02-24 02:18] LABS: Appearance,Urine Cloudy (Clear); Bacteria,Urine Rare /hpf; Bilirubin,Urine Negative (Negative); Blood,Urine Small (Negative); Color,Urine Yellow; Glucose,Urine (UA) Negative (Negative); Granular Casts,Urine 15 /lpf (0); Hyaline Casts,Urine 26 /lpf (0-2); Ketones,Urine Negative (Negative); Leukocyte Esterase,Urine Negative (Negative); Mucus,Urine Rare /hpf; Nitrite,Urine Negative (Negative); Protein,Urine 1+ (Negative); RBC,Urine 3 /hpf (0-5); Specific Gravity,Urine 1.009 (1.001-1.035); Squamous Epithelial Cell,Urine <1 /hpf (0-4); Urobilinogen,Urine <2.0 mg/dL (<2.0); WBC,Urine 2 /hpf (0-5)
[2018-02-24 03:02] VITALS: BMI 26.6
[2018-02-24] MEDS: ONDANSETRON 4 MG/2 ML VIAL IVP PRN ×2 (03:08→17:34)
[2018-02-24] MEDS ORDERED: amLODIPine 10 MG TAB PO SCH (09:00)
[2018-02-24] MEDS ORDERED: LOSARTAN 50 MG TAB PO SCH (09:00)
--- NOTE | 2018-02-24 09:47 | P.NPCON ---
History of Present Illness - Reason for Consult acute renal failure, hyponatremia - History of Present Illness Reason for consultation: Acute kidney injury and electrolyte imbalance History of present illness: Patient is a 87-year-old male seen in renal consultation for acute kidney injury and hyponatremia. Patient's sodium level was 125 and creatinine was 5.1 on admission last night. He was noted to have urinary retention and a Osborne catheter placed with about 500 mL of urine obtained. He was started on normal saline at 100 mL an hour and also received 1 L fluid bolus. Patient's baseline creatinine is near 1. He did come to the emergency room on February 21 and his creatinine was 3 at the time and was subsequently discharged home. Patient was also noted to have acute cholecystitis and was scheduled to undergo cholecystectomy next week. He was also to get a liver biopsy at the same time. Currently his abdominal pressure has improved. Hemodynamically stable. States his urine output was decreased prior to admission. He is currently nonoliguric with good urine output. He is resting in bed. Oral intake is fair. Denies use of NSAIDs. Denies any history of kidney disease. Vital signs are stable. General: The patient appeared well nourished and normally developed. HEENT: Head exam is unremarkable. Neck is without jugular venous distension. LUNGS: Lungs are clear to auscultation and percussion. Breath sounds decreased. HEART: Rate and Rhythm are regular. First and second heart sounds normal. No murmurs, rubs or gallops. ABDOMEN: Abdominal exam reveals normal bowel sounds. Mild tenderness. EXTREMITITES: No clubbing, cyanosis, or edema. Past Medical History Past Medical History: CVA/TIA, GERD/Reflux, Hypertension Additional Past Medical History / Comment(s): HX RENAL CALCULUS, TIA 7-8 yrs ago-, "sluggy gall bladder", elevated liver enzymes in past, History of Any Multi-Drug Resistant Organisms: None Reported Past Surgical History: No Surgical Hx Reported Additional Past Surgical History / Comment(s): colonoscopy, jane cataracts Past Anesthesia/Blood Transfusion Reactions: No Reported Reaction Additional Past Anesthesia/Blood Transfusion Reaction / Comment(s): NO FAMILY HX KNOWN Past Psychological History: No Psychological Hx Reported Smoking Status: Never smoker Past Alcohol Use History: None Reported Past Drug Use History: None Reported - Past Family History Mother Family Medical History: Unable to Obtain Medications and Allergies Home Medications Medication Instructions Recorded Confirmed Type amLODIPine BES/OLMESARTAN MED 1 tab PO DAILY@1700 01/15/15 02/24/18 History [Elsa 10-20 mg Tablet] Loratadine 10 mg PO DAILY PRN 12/16/16 02/24/18 History Ondansetron [Zofran ODT] 8 mg PO Q8HR PRN #20 tab 02/19/18 02/24/18 Rx traMADol HCl [Ultram] 50 - 100 mg PO Q6H PRN #20 tab 02/19/18 02/24/18 Rx Amoxic-Pot Clav 500-125 mg 1 tab PO BID 02/24/18 02/24/18 History [Augmentin 500-125 mg] Omeprazole 20 mg PO DAILY 02/24/18 02/24/18 History Allergies Allergy/AdvReac Type Severity Reaction Status Date / Time No Known Allergies Allergy Verified 02/24/18 07:48 Physical Exam Vitals: Vital Signs Temp Pulse Pulse Resp BP BP Pulse Ox 02/24/18 05:20 97.7 F 70 16 110/55 95 02/24/18 02:50 97.5 F L 79 16 108/59 95 02/24/18 02:08 98.8 F 84 16 116/68 96 02/23/18 23:44 99.2 F 82 18 103/55 95 Intake and Output 02/23/18 02/24/18 02/24/18 22:59 06:59 14:59 Intake Total 500 Output Total 400 Balance 100 Intake: Intake, IV Titration 500 Amount Sodium Chloride 0.9% 1, 500 000 ml @ 100 mls/hr IV . Q10H [facility] Rx#:[id number] Output: Urine 400 Uretheral (Osborne) 400 Other: Voiding Method Indwelling Catheter Weight 77 kg Results - Lab Results Most recent lab results Calcium 7.9 mg/dL (8.4-10.2) L 02/24/18 00:30 02/24/18 00:30 02/24/18 00:30 Assessment and Plan Plan: Assessment: 1. Nonoliguric acute kidney injury mostly prerenal secondary to poor oral intake and further worsened with the use of ARB. Urinary retention also contributing factor. Creatinine 5.1 on admission. No evidence of hydronephrosis noted on renal ultrasound. 2. Urinary retention status post Osborne catheter placement. 3. Metabolic acidosis secondary to acute kidney injury. 4. Hyponatremia secondary to acute kidney injury and urinary retention. 5. Gallbladder sludge noted on recent ultrasound. Concern for acute cholecystitis. Scheduled to undergo cholecystectomy next week. 6. Findings of cirrhosis noted on gallbladder ultrasound. Liver biopsy pending. 7. Benign hypertension. Currently controlled. Plan: Continue normal saline at 100 mL an hour. Maintain Osborne catheter. Repeat BMP now. Encourage oral intake. Avoid nephrotoxic agents and hypotensive episodes - hold Cozaar. Hold amlodipine for systolic blood pressure less than 120. Add oral sodium bicarbonate 650 mg twice daily. Thank you for the consultation. I will continue to follow the patient with you during his hospital stay.
[2018-02-24] MEDS: ACETAMINOPHEN TAB 325 MG TAB PO PRN ×2 (09:50→17:33)
[2018-02-24 10:07] LABS: Calcium 8.9 mg/dL (8.4-10.2); Potassium 3.6 mmol/L (3.5-5.1)
--- NOTE | 2018-02-24 11:28 | P.HPIM ---
History of Present Illness H&P Date: 02/24/18 Chief Complaint: abdominal pain, acute cholecystitis, acute kidney failure, urinary retentio 87-year-old male with known for the last 2 years with past medical history of kidney stone history of TIA GERD hypertension and large prostate who was at emergency room last Tuesday with severe abdominal pain was diagnosed with acute cholecystitis with abnormal finding in the liver as well consistent with possible early cirrhosis. Patient was seen in the office on Tuesday and plan to see one of the general surgeon for possibility of surgery this coming week. Patient ended up [facility] department again on Tuesday night and found to have creatinine of 2.0 with elevated BUN and apparently was sent home from the ER with prescription for tramadol for pain. He continued to have significant pain and discomfort bloating sensation nausea feeling not been able to eat or drink become quite bed dry dehydrated not been able to void as well. Patient ended up in [facility] apartment on 02/23 with above complaint was seen and evaluated surprisingly this time his creatinine was up to 5.1 with bun up to 92 mild anemia with hemoglobin down to 10.6. Patient was diagnosed with acute kidney failure with severe gastritis and cholecystitis. Patient had thickened arrhythmia with multiple PVCs and Q waves in the inferior leads consistent with possible NM in the past which patient never remember having problem. Patient was supposed to go for cardiac workup in the next 2 weeks. Review of Systems Constitutional: Reports anorexia, Reports chronic headaches, Reports chronic pain, Reports fatigue, Reports fever, Reports lethargy, Reports malaise, Reports poor appetite, Reports weakness, Reports weight loss, Denies as per HPI , Denies chills, Denies daytime sleepiness, Denies night sweats, Denies sweats, Denies weight gain Eyes: bilateral as per HPI Ears: bilateral: decreased hearing Ears, nose, mouth and throat: Reports dysphagia, Reports mouth pain, Reports nasal congestion, Reports nasal discharge, Reports nose pain, Reports sinus pain , Reports sinus pressure, Reports swelling in mouth, Reports vertigo, Denies as per HPI, Denies ant. neck pain, Denies bleeding gums, Denies dental pain, Denies epistaxis, Denies headache, Denies hoarseness, Denies neck fullness/ pressure, Denies neck lump, Denies odynophagia, Denies post-nasal drip, Denies swelling in throat, Denies sore throat, Denies voice changes Cardiovascular: Reports edema, Reports high blood pressure, Reports irregular heart beat, Reports orthopnea, Reports palpitations, Denies as per HPI, Denies chest pain, Denies claudication, Denies decreased exercise tolerance, Denies dyspnea on exertion, Denies leg edema, Denies lightheadedness, Denies paroxysmal nocturnal dyspnea, Denies phlebitis, Denies rapid heart beat, Denies shortness of breath, Denies syncope Respiratory: Reports congestion, Reports cough, Reports dyspnea, Denies as per HPI, Denies cough with sputum, Denies excessive sputum, Denies hemoptysis, Denies home oxygen, Denies pain, Denies pain on inspiration, Denies pleurisy, Denies respiratory infections, Denies sleep apnea, Denies snoring, Denies wheezing Gastrointestinal: Reports abdominal pain, Reports bloating, Reports dyspepsia, Reports heartburn, Reports nausea, Reports vomiting, Denies as per HPI, Denies belching, Denies BRBPR, Denies change in bowel habits, Denies coffee ground emesis, Denies constipation, Denies diarrhea, Denies early satiety, Denies excessive gas, Denies hematemesis, Denies hematochezia, Denies indigestion, Denies jaundice, Denies lactose intolerance, Denies loss of appetite, Denies melena Genitourinary: Reports dysuria, Reports nocturia, Denies as per HPI, Denies decreased libido, Denies difficulties fathering child, Denies discharge, Denies erectile dysfunction, Denies flank pain, Denies genital pain, Denies genital sores, Denies hematuria, Denies impotence, Denies incontinence, Denies kidney stones, Denies polyuria, Denies testicular lump, Denies testicular pain, Denies urinary frequency, Denies urinary hesitancy, Denies urinary retention Musculoskeletal: Reports neck stiffness, Denies as per HPI, Denies arm numbness/ tingling, Denies atrophy, Denies fractures, Denies frequent falls, Denies gait dysfunction, Denies hot joints, Denies leg numbness/tingling, Denies limitation of motion, Denies loss of height, Denies low back pain, Denies morning stiffness , Denies muscle cramps, Denies muscle weakness, Denies myalgias, Denies neck pain, Denies prior amputations, Denies redness of joints, Denies shooting arm pain, Denies shooting leg pain Integumentary: Reports acne, Denies as per HPI, Denies boils, Denies brittle nails, Denies change in hair/nails, Denies color changes, Denies darkening of skin, Denies depigmentation, Denies dryness, Denies foot/leg ulcers, Denies growths, Denies hirsutism, Denies lesions, Denies onychomycosis, Denies pruritus , Denies rash, Denies sores, Denies striae, Denies unusual bruising, Denies wounds Neurological: Reports gait dysfunction, Reports headaches, Reports numbness, Reports syncope, Reports tingling, Reports tremors, Reports weakness, Denies as per HPI, Denies aphasia, Denies ataxia, Denies balance difficulties, Denies burning pain, Denies change in mentation, Denies change in smell/taste, Denies change in speech, Denies confusion, Denies convulsions, Denies double vision, Denies head injury, Denies hearing difficulties, Denies lack of coordination, Denies loss of vision, Denies memory loss, Denies migraines, Denies motor disturbance, Denies paralysis, Denies paresthesias, Denies seizures, Denies sensory deficit, Denies spasticity, Denies tic, Denies transient paralysis, Denies vertigo, Denies visual changes Psychiatric: Reports anhedonia, Reports anxiety, Reports depression, Reports mood swings, Denies as per HPI, Denies anxiety attacks, Denies change in appetite, Denies change in libido, Denies change in sleep habits, Denies confusion, Denies difficulty concentrating, Denies disorientation, Denies hallucinations, Denies hopelessness, Denies hypersomnia, Denies insomnia, Denies irritability, Denies memory loss, Denies paranoia, Denies sadness/ tearfulness, Denies sleep disturbances, Denies suicidal ideation Endocrine: Reports cold intolerance, Reports excessive thirst, Reports fatigue, Reports flushing, Denies as per HPI, Denies deepening of the voice, Denies excessive sweating, Denies heat intolerance, Denies high blood sugars, Denies increase in ring/shoe/hat size, Denies low blood sugars, Denies nocturia, Denies palpitations, Denies polydipsia, Denies polyphagia, Denies polyuria, Denies proptosis, Denies recent glucocorticoid use, Denies thyroid mass, Denies weight change Hematologic/Lymphatic: Reports easy bruising, Denies as per HPI, Denies easy bleeding, Denies lymphadenopathy, Denies lymphedema, Denies thrombophilia Allergic/Immunologic: Denies as per HPI, Denies allergic rhinitis, Denies anaphylaxis, Denies angioedema, Denies gluten intolerance, Denies persistent infections, Denies seasonal allergies, Denies urticaria, Denies wheezing Past Medical History Past Medical History: CVA/TIA, GERD/Reflux, Hypertension Additional Past Medical History / Comment(s): HX RENAL CALCULUS, TIA 7-8 yrs ago-, "sluggy gall bladder", elevated liver enzymes in past, History of Any Multi-Drug Resistant Organisms: None Reported Past Surgical History: No Surgical Hx Reported Additional Past Surgical History / Comment(s): colonoscopy, jane cataracts Past Anesthesia/Blood Transfusion Reactions: No Reported Reaction Additional Past Anesthesia/Blood Transfusion Reaction / Comment(s): NO FAMILY HX KNOWN Past Psychological History: No Psychological Hx Reported Smoking Status: Never smoker Past Alcohol Use History: None Reported Past Drug Use History: None Reported - Past Family History Mother Family Medical History: Unable to Obtain Medications and Allergies Home Medications Medication Instructions Recorded Confirmed Type amLODIPine BES/OLMESARTAN MED 1 tab PO DAILY@1700 01/15/15 02/24/18 History [Elsa 10-20 mg Tablet] Loratadine 10 mg PO DAILY PRN 12/16/16 02/24/18 History Ondansetron [Zofran ODT] 8 mg PO Q8HR PRN #20 tab 02/19/18 02/24/18 Rx traMADol HCl [Ultram] 50 - 100 mg PO Q6H PRN #20 tab 02/19/18 02/24/18 Rx Amoxic-Pot Clav 500-125 mg 1 tab PO BID 02/24/18 02/24/18 History [Augmentin 500-125 mg] Omeprazole 20 mg PO DAILY 02/24/18 02/24/18 History Allergies Allergy/AdvReac Type Severity Reaction Status Date / Time No Known Allergies Allergy Verified 02/24/18 07:48 Physical Exam Vitals: Vital Signs Temp Pulse Pulse Resp BP BP Pulse Ox 02/24/18 05:20 97.7 F 70 16 110/55 95 02/24/18 02:50 97.5 F L 79 16 108/59 95 02/24/18 02:08 98.8 F 84 16 116/68 96 02/23/18 23:44 99.2 F 82 18 103/55 95 Intake and Output 02/23/18 02/24/18 02/24/18 22:59 06:59 14:59 Intake Total 500 Output Total 400 Balance 100 Intake: Intake, IV Titration 500 Amount Sodium Chloride 0.9% 1, 500 000 ml @ 100 mls/hr IV . Q10H [facility] Rx#:[id number] Output: Urine 400 Uretheral (Osborne) 400 Other: Voiding Method Indwelling Catheter Weight 77 kg - Constitutional General appearance: no average body habitus, cooperative, no disheveled, mild distress, no morbidly obese, no no acute distress, no obese, no severe distress , no thin - EENT Eyes: no abnormal pupil, no anicteric sclerae, no disc margins sharp, no edentulous, no EOMI, no PERRLA, no fundus normal, no photophobia, no dentition normal, no poor dentition, no ptosis, no scleral icterus, normal appearance ENT: hard of hearing, no hearing grossly normal, no NA/AT, normal oropharynx, no other, no pharyngeal erythema, no thrush, no tonsillar exudates, no tonsillar swelling Ears: bilateral: normal - Neck Neck: no lymphadenopathy, normal ROM, no other, no rigidity, no stridor, no thyromegaly Carotids: bilateral: upstroke normal Thyroid: bilateral: normal size - Respiratory Respiratory: bilateral: CTA, diminished - Cardiovascular Rhythm: regular Heart sounds: normal: S1, S2 Abnormal Heart Sounds: systolic murmur - Gastrointestinal General gastrointestinal: no absent bowel sounds, decreased bowel sounds, distended, hepatomegaly, no hyperactive bowel sounds, no normal bowel sounds, no organomegaly, no rigid, no scaphoid, no soft, splenomegaly, tenderness, no umbilical hernia, no ventral hernia Localized gastrointestinal: tender: RLQ, epigastric periumbilical, midline - Integumentary Integumentary: no calor, no cellulitis, no cyanotic, no decreased turgor, no flushed, no jaundiced, normal, no normal turgor, pale, no rash, no ulcer - Neurologic Neurologic: CNII-XII intact - Musculoskeletal Musculoskeletal: gait normal, generalized weakness, no strength equal bilaterally, no right sided weakness, no left sided weakness - Psychiatric Psychiatric: A&O x's 3, appropriate affect, no intact judgment & insight Results CBC & Chem 7: 02/24/18 00:30 02/24/18 09:36 Labs: Abnormal Lab Results - Last 24 Hours (Table) 02/24/18 02/24/18 02/24/18 Range/Units 00:30 00:30 02:06 RBC 3.50 L (4.30-5.90) m/uL Hgb 10.6 L (13.0-17.5) gm/dL Hct 30.3 L (39.0-53.0) % Neutrophils # 8.6 H (1.3-7.7) k/uL Lymphocytes # 0.9 L (1.0-4.8) k/uL Sodium 125 L (137-145) mmol/L Chloride 90 L (98-107) mmol/L Carbon Dioxide 16 L (22-30) mmol/L BUN 92 H* (9-20) mg/dL Creatinine 5.10 H* (0.66-1.25) mg/dL Glucose 112 H (74-99) mg/dL Calcium 7.9 L (8.4-10.2) mg/dL AST 67 H (17-59) U/L Alkaline Phosphatase 164 H (38-126) U/L Total Protein 5.9 L (6.3-8.2) g/dL Albumin 3.2 L (3.5-5.0) g/dL Urine Protein 1+ H (Negative) Urine Blood Small H (Negative) Urine Bacteria Rare H (None) /hpf Hyaline Casts 26 H (0-2) /lpf Urine Mucus Rare H (None) /hpf 02/24/18 Range/Units 09:36 RBC (4.30-5.90) m/uL Hgb (13.0-17.5) gm/dL Hct (39.0-53.0) % Neutrophils # (1.3-7.7) k/uL Lymphocytes # (1.0-4.8) k/uL Sodium 133 L (137-145) mmol/L Chloride (98-107) mmol/L Carbon Dioxide 17 L (22-30) mmol/L BUN 87 H* (9-20) mg/dL Creatinine 3.90 H (0.66-1.25) mg/dL Glucose 106 H (74-99) mg/dL Calcium (8.4-10.2) mg/dL AST (17-59) U/L Alkaline Phosphatase (38-126) U/L Total Protein (6.3-8.2) g/dL Albumin (3.5-5.0) g/dL Urine Protein (Negative) Urine Blood (Negative) Urine Bacteria (None) /hpf Hyaline Casts (0-2) /lpf Urine Mucus (None) /hpf Thrombosis Risk Factor Assmnt - DVT/VTE Prophylaxis DVT/VTE Prophylaxis: Pharmacologic Prophylaxis ordered, Mechanical Prophylaxis ordered - Choose All That Apply Any of the Below Risk Factors Present?: Yes Other Risk Factors: Yes Other congenital or acquired thrombophilia - If yes, enter type in comment: No Assessment and Plan Plan: 1 severe abdominal pain: Combination off obstructive uropathy, acute coldly cystitis and cholelithiasis, severe acute gastritis and gastroenteritis. With treat underlying disease continue hydration and continue Osborne catheter for now. 2 acute kidney failure: Most likely secondary to acute tubal necrosis with acute obstructive uropathy, patient will continue hydration continue Osborne catheter and consult urology. 3 acute cholecystitis patient was seen Dr. Santiago and supposed to go for surgery on Tuesday, plan might be continue the same specially if patient is more stable by then. 4 acute urinary tract infection: With the above problem patient will be started on Levaquin 250 mg a day for now which he beneficial both for the biliary tree infection along with the urinary tract. 5 acute gastritis: With significant drop in hemoglobin along with mid abdominal pain patient will be continue on pantoprazole IV continue to watch for any GI bleed. 6 arrhythmia: Mostly PVCs with no sign of A. fib or ventricular arrhythmia, his electrolyte will be watch carefully his thyroid testing is up-to-date and normal. 7 abnormal EKG with Q waves in the inferior leads: Patient will be going for some sort of chemical nuclear stress test when he is more stable. 8 hypertension: Blood pressure has been low lately will continue Elsa daily. 9 severe GERD/GI prophylaxis: We'll continue patient on pantoprazole and Zofran for nausea. 10 DVT prophylaxis: Patient will be on heparin subcutaneous along with knee- high ERICKA hose and Venodyne boots. CODE STATUS: Full code. Admit patient to inpatient status for length of stay of more than 2 nights.
[2018-02-24] MEDS: SODIUM BICARBONATE TAB 650 MG TAB PO SCH ×2 (11:35→21:51)
[2018-02-24] MEDS: LEVOFLOXACIN 500MG-D5W PMX 500 MG in DEXTROSE/WATER 1 100ML.BAG IVPB SCH (11:35)
--- NOTE | 2018-02-24 13:16 | ECHOF ---
Referral Reason:lvfunction MEASUREMENTS -------- HEIGHT: 170.2 cm WEIGHT: 76.7 kg BP: 110/55 RVIDd: 3.5 cm (< 3.3) IVSd: 1.1 cm (0.6 - 1.1) LVIDd: 4.8 cm (3.9 - 5.3) LVPWd: 1.1 cm (0.6 - 1.1) IVSs: 1.6 cm LVIDs: 3.3 cm LVPWs: 1.3 cm LA Diam: 2.9 cm (2.7 - 3.8) LAESV Index (A-L): 27.05 ml/m Ao Diam: 3.6 cm (2.0 - 3.7) AV Cusp: 1.7 cm (1.5 - 2.6) MV EXCURSION: 12.495 mm (> 18.000) MV EF SLOPE: 53 mm/s (70 - 150) EPSS: 0.5 cm MV E Benjamin: 0.90 m/s MV DecT: 266 ms MV A Benjamin: 1.25 m/s MV E/A Ratio: 0.72 RAP: 5.00 mmHg RVSP: 31.94 mmHg FINDINGS -------- Sinus rhythm. This was a technically good study. The left ventricular size is normal. There is borderline concentric left ventricular hypertrophy. Overall left ventricular systolic function is normal with, an EF between 60 - 65 %. The right ventricle is mildly enlarged. Normal LA size by volume 22+/-6 ml/m2. The right atrium is normal in size. There is mild aortic valve sclerosis. The mitral valve leaflets are mildly thickened. Mild mitral annular calcification present. There is trace to mild mitral regurgitation. Mild tricuspid regurgitation present. Right ventricular systolic pressure is normal at < 35 mmHg. There is no pulmonic regurgitation present. The aortic root size is normal. Normal inferior vena cava with normal inspiratory collapse consistent with estimated right atrial pre ssure of 5 mmHg. There is no pericardial effusion. CONCLUSIONS -------- 1. Sinus rhythm. 2. This was a technically good study. 3. The left ventricular size is normal. 4. There is borderline concentric left ventricular hypertrophy. 5. Overall left ventricular systolic function is normal with, an EF between 60 - 65 %. 6. The right ventricle is mildly enlarged. 7. Normal LA size by volume 22+/-6 ml/m2. 8. The right atrium is normal in size. 9. There is mild aortic valve sclerosis. 10. The mitral valve leaflets are mildly thickened. 11. Mild mitral annular calcification present. 12. There is trace to mild mitral regurgitation. 13. Mild tricuspid regurgitation present. 14. Right ventricular systolic pressure is normal at < 35 mmHg. 15. There is no pulmonic regurgitation present. 16. The aortic root size is normal. 17. Normal inferior vena cava with normal inspiratory collapse consistent with estimated right atrial pressure of 5 mmHg. 18. There is no pericardial effusion. NETWORK SYSTEMS ANALYST: Lynne Ley RDCS
[2018-02-24] MEDS ORDERED: PANTOPRAZOLE 40 MG TABLET PO STA (16:13)
[2018-02-24] MEDS: HEPARIN SODIUM,PORCINE 5,000 UNIT/ML 1 ML VIAL SQ SCH ×2 (17:03→23:54)
[2018-02-24] MEDS: amLODIPine 10 MG TAB PO SCH (17:03)
[2018-02-24] MEDS: SUCRALFATE 1 GM TAB PO SCH ×2 (18:21→21:51)
[2018-02-24] MEDS: METOCLOPRAMIDE 5 MG/ML 2 ML VIAL IVP SCH (18:21)
[2018-02-24 18:24] LABS: Calcium 8.7 mg/dL (8.4-10.2); Potassium 3.6 mmol/L (3.5-5.1)
--- NOTE | 2018-02-24 21:23 | P.GSCN ---
History of Present Illness Consult date: 02/24/18 Reason for Consult: Urine retention History of present illness: The patient is an 87-year-old gentleman brought in the hospital because of abdominal pain and diarrhea and gas. He is also found to have renal failure. Renal failure is apparently due to dehydration as well as urine retention. The patient had a catheter placed for about 500 mL urine. With hydration and Osborne catheters creatinine is gone from 5 to about 3. Urologically the patient states that for the last couple weeks he has had some difficulty urine with difficulty starting slowing and incomplete stream. He has not had constipation. He has not been on any new medications. He was seen years ago urologically for BPH but no medicine was required. He has not been on any medication since then for BPH. Review of Systems - Constitutional Reports chronic pain, Reports weakness - Gastrointestinal Reports as per HPI, Reports abdominal pain, Reports diarrhea - Genitourinary Reports as per HPI Past Medical History Past Medical History: CVA/TIA, GERD/Reflux, Hypertension Additional Past Medical History / Comment(s): HX RENAL CALCULUS, TIA 7-8 yrs ago-, "sluggy gall bladder", elevated liver enzymes in past, History of Any Multi-Drug Resistant Organisms: None Reported Past Surgical History: No Surgical Hx Reported Additional Past Surgical History / Comment(s): colonoscopy, jane cataracts Past Anesthesia/Blood Transfusion Reactions: No Reported Reaction Additional Past Anesthesia/Blood Transfusion Reaction / Comm: NO FAMILY HX KNOWN Past Psychological History: No Psychological Hx Reported Smoking Status: Never smoker Past Alcohol Use History: None Reported Past Drug Use History: None Reported - Past Family History Mother Family Medical History: Unable to Obtain Medications and Allergies Home Medications Medication Instructions Recorded Confirmed Type amLODIPine BES/OLMESARTAN MED 1 tab PO DAILY@1700 01/15/15 02/24/18 History [Elsa 10-20 mg Tablet] Loratadine 10 mg PO DAILY PRN 12/16/16 02/24/18 History Ondansetron [Zofran ODT] 8 mg PO Q8HR PRN #20 tab 02/19/18 02/24/18 Rx traMADol HCl [Ultram] 50 - 100 mg PO Q6H PRN #20 tab 02/19/18 02/24/18 Rx Amoxic-Pot Clav 500-125 mg 1 tab PO BID 05/25/18 05/25/18 History [Augmentin 500-125 mg] Omeprazole 20 mg PO DAILY 02/24/18 02/24/18 History Allergies Allergy/AdvReac Type Severity Reaction Status Date / Time No Known Allergies Allergy Verified 02/24/18 07:48 Surgical - Exam Vital Signs Temp Pulse Resp BP Pulse Ox 99.2 F 82 18 103/55 95 02/23/18 23:44 02/23/18 23:44 02/23/18 23:44 02/23/18 23:44 02/23/18 23:44 - General well developed, well nourished, no distress - Eyes PERRL - ENT no hearing loss - Neck trachea midline - Respiratory normal expansion, normal respiratory effort - Cardiovascular Rhythm: regular - Abdomen Abdomen: soft, non tender, distended - Genitourinary Prostate is 20-30g soft and benign. The penis is uncircumcised and normal testes are descended and unremarkable. There is no indwelling catheter with clear urine. - Rectum Rectum: normal sphincter tone - Integumentary no rash, no growths - Neurologic normal coordination, normal sensation - Musculoskeletal normal posture - Psychiatric oriented to time, oriented to person, oriented to place, speech is normal, memory intact Results - Labs 02/24/18 00:30 02/24/18 17:50 Abnormal Lab Results - Last 24 Hours (Table) 02/24/18 02/24/18 02/24/18 Range/Units 00:30 00:30 02:06 RBC 3.50 L (4.30-5.90) m/uL Hgb 10.6 L (13.0-17.5) gm/dL Hct 30.3 L (39.0-53.0) % Neutrophils # 8.6 H (1.3-7.7) k/uL Lymphocytes # 0.9 L (1.0-4.8) k/uL Sodium 125 L (137-145) mmol/L Chloride 90 L (98-107) mmol/L Carbon Dioxide 16 L (22-30) mmol/L BUN 92 H* (9-20) mg/dL Creatinine 5.10 H* (0.66-1.25) mg/dL Glucose 112 H (74-99) mg/dL Calcium 7.9 L (8.4-10.2) mg/dL AST 67 H (17-59) U/L Alkaline Phosphatase 164 H (38-126) U/L Total Protein 5.9 L (6.3-8.2) g/dL Albumin 3.2 L (3.5-5.0) g/dL Urine Protein 1+ H (Negative) Urine Blood Small H (Negative) Urine Bacteria Rare H (None) /hpf Hyaline Casts 26 H (0-2) /lpf Urine Mucus Rare H (None) /hpf 02/24/18 02/24/18 Range/Units 09:36 17:50 RBC (4.30-5.90) m/uL Hgb (13.0-17.5) gm/dL Hct (39.0-53.0) % Neutrophils # (1.3-7.7) k/uL Lymphocytes # (1.0-4.8) k/uL Sodium 133 L 136 L (137-145) mmol/L Chloride (98-107) mmol/L Carbon Dioxide 17 L 18 L (22-30) mmol/L BUN 87 H* 76 H (9-20) mg/dL Creatinine 3.90 H 3.10 H (0.66-1.25) mg/dL Glucose 106 H (74-99) mg/dL Calcium (8.4-10.2) mg/dL AST (17-59) U/L Alkaline Phosphatase (38-126) U/L Total Protein (6.3-8.2) g/dL Albumin (3.5-5.0) g/dL Urine Protein (Negative) Urine Blood (Negative) Urine Bacteria (None) /hpf Hyaline Casts (0-2) /lpf Urine Mucus (None) /hpf Diabetes panel 02/24/18 02/24/18 02/24/18 Range/Units 00:30 09:36 17:50 Sodium 125 L 133 L 136 L (137-145) mmol/L Potassium 3.5 3.6 3.6 (3.5-5.1) mmol/L Chloride 90 L 98 99 (98-107) mmol/L Carbon Dioxide 16 L 17 L 18 L (22-30) mmol/L BUN 92 H* 87 H* 76 H (9-20) mg/dL Creatinine 5.10 H* 3.90 H 3.10 H (0.66-1.25) mg/dL Glucose 112 H 106 H 99 (74-99) mg/dL Calcium 7.9 L 8.9 8.7 (8.4-10.2) mg/dL AST 67 H (17-59) U/L ALT 58 (21-72) U/L Alkaline Phosphatase 164 H (38-126) U/L Total Protein 5.9 L (6.3-8.2) g/dL Albumin 3.2 L (3.5-5.0) g/dL Calcium panel 02/24/18 02/24/18 02/24/18 Range/Units 00:30 09:36 17:50 Calcium 7.9 L 8.9 8.7 (8.4-10.2) mg/dL Albumin 3.2 L (3.5-5.0) g/dL Pituitary panel 02/24/18 02/24/18 02/24/18 Range/Units 00:30 09:36 17:50 Sodium 125 L 133 L 136 L (137-145) mmol/L Potassium 3.5 3.6 3.6 (3.5-5.1) mmol/L Chloride 90 L 98 99 (98-107) mmol/L Carbon Dioxide 16 L 17 L 18 L (22-30) mmol/L BUN 92 H* 87 H* 76 H (9-20) mg/dL Creatinine 5.10 H* 3.90 H 3.10 H (0.66-1.25) mg/dL Glucose 112 H 106 H 99 (74-99) mg/dL Calcium 7.9 L 8.9 8.7 (8.4-10.2) mg/dL Adrenal panel 02/24/18 02/24/18 02/24/18 Range/Units 00:30 09:36 17:50 Sodium 125 L 133 L 136 L (137-145) mmol/L Potassium 3.5 3.6 3.6 (3.5-5.1) mmol/L Chloride 90 L 98 99 (98-107) mmol/L Carbon Dioxide 16 L 17 L 18 L (22-30) mmol/L BUN 92 H* 87 H* 76 H (9-20) mg/dL Creatinine 5.10 H* 3.90 H 3.10 H (0.66-1.25) mg/dL Glucose 112 H 106 H 99 (74-99) mg/dL Calcium 7.9 L 8.9 8.7 (8.4-10.2) mg/dL Total Bilirubin 0.7 (0.2-1.3) mg/dL AST 67 H (17-59) U/L ALT 58 (21-72) U/L Alkaline Phosphatase 164 H (38-126) U/L Total Protein 5.9 L (6.3-8.2) g/dL Albumin 3.2 L (3.5-5.0) g/dL Assessment and Plan Assessment: Impression: Urinary retention. Acute renal failure probably secondary to dehydration, medications and possibly the urine retention. Abdominal pain and bloating. Apparent cholecystitis. Recommendations: A Osborne catheters been placed for the urine retention. The creatinine is come down to 3. How much of the elevated creatinine was due to his retention versus dehydration is indeterminate. Is no hydronephrosis seen on the ultrasound making the elevated creatinine less apt to be related to retention. Regardless he was unable to void. I suspect his acute abdominal illnesses related to this urinary difficulty. I will place him on tamsulosin and once he is ambulatory and feeling better a voiding trial by removing the catheter can be performed.
[2018-02-24] MEDS ORDERED: TAMSULOSIN 0.4 MG CAP.ER.24H PO STA (21:28)
[2018-02-25] MEDS ORDERED: PANTOPRAZOLE 40 MG TABLET PO SCH (07:30)
[2018-02-25 08:20] LABS: Basophils % (A) 0 %; Eosinophils % (A) 1 %; HCT 33.5 % (39.0-53.0); HGB 11.3 gm/dL (13.0-17.5); Lymphocytes # (A) 0.7 k/uL (1.0-4.8); Lymphocytes % (A) 10 %; MCH 30.3 pg (25.0-35.0); MCHC 33.8 g/dL (31.0-37.0); MCV 89.7 fL (80.0-100.0); Monocytes # (A) 0.5 k/uL (0-1.0); Monocytes % (A) 7 %; Neutrophils # (A) 6.1 k/uL (1.3-7.7); Neutrophils % (A) 81 %; Platelet Count 273 k/uL (150-450); RBC 3.74 m/uL (4.30-5.90); RDW 13.8 % (11.5-15.5); WBC 7.5 k/uL (3.8-10.6)
[2018-02-25 08:33] LABS: Albumin 3.3 g/dL (3.5-5.0); Calcium 8.6 mg/dL (8.4-10.2); Magnesium 1.8 mg/dL (1.6-2.3); Phosphorus 3.2 mg/dL (2.5-4.5); Potassium 3.4 mmol/L (3.5-5.1); Total Bilirubin 0.7 mg/dL (0.2-1.3); Total Protein 6.1 g/dL (6.3-8.2)
[2018-02-25] MEDS: amLODIPine 5 MG TAB PO SCH (09:35)
[2018-02-25] MEDS: METOCLOPRAMIDE 5 MG/ML 2 ML VIAL IVP SCH ×3 (09:38→17:29)
[2018-02-25] MEDS: HEPARIN SODIUM,PORCINE 5,000 UNIT/ML 1 ML VIAL SQ SCH ×3 (09:39→23:53)
[2018-02-25] MEDS: SODIUM BICARBONATE TAB 650 MG TAB PO SCH ×2 (09:39→21:59)
[2018-02-25] MEDS: SUCRALFATE 1 GM TAB PO SCH ×4 (09:39→20:38)
[2018-02-25] MEDS: SODIUM CHLORIDE 0.9% 1,000 ML IV SCH ×2 (09:40→17:29)
[2018-02-25] MEDS: amLODIPine 10 MG TAB PO SCH (09:51)
[2018-02-25] MEDS: MAGNESIUM SULFATE-D5W PMX 1 GM in DEXTROSE/WATER 1 100ML.BAG IVPB SCH ×2 (10:39→12:53)
[2018-02-25] MEDS: POTASSIUM CHLORIDE ER 20 MEQ TAB.ER PO SCH (10:40)
[2018-02-25] MEDS: METOPROLOL TARTRATE 25 MG TAB PO SCH (10:40)
--- NOTE | 2018-02-25 11:42 | P.GSCN ---
History of Present Illness Consult date: 02/25/18 History of present illness: This 87-year-old male who is being seen as an outpatient and worked up for possible lap cholecystectomy. This was being done by Dr. Pelayo. He's been experiencing some abdominal pain and nausea vomiting for some time. He is now in the hospital for acute renal failure and being seen by nephrology and urology. He also had an abnormal EKG and is currently undergoing cardiac workup. He is tolerating his diet at this time and not expensing any vomiting. He's denying any abdominal pain. He has no fevers or chills. Past Medical History Past Medical History: CVA/TIA, GERD/Reflux, Hypertension Additional Past Medical History / Comment(s): HX RENAL CALCULUS, TIA 7-8 yrs ago-, "sluggy gall bladder", elevated liver enzymes in past, History of Any Multi-Drug Resistant Organisms: None Reported Past Surgical History: No Surgical Hx Reported Additional Past Surgical History / Comment(s): colonoscopy, jane cataracts Past Anesthesia/Blood Transfusion Reactions: No Reported Reaction Additional Past Anesthesia/Blood Transfusion Reaction / Comm: NO FAMILY HX KNOWN Past Psychological History: No Psychological Hx Reported Smoking Status: Never smoker Past Alcohol Use History: None Reported Past Drug Use History: None Reported - Past Family History Mother Family Medical History: Unable to Obtain Medications and Allergies Home Medications Medication Instructions Recorded Confirmed Type amLODIPine BES/OLMESARTAN MED 1 tab PO DAILY@1700 01/15/15 02/24/18 History [Elsa 10-20 mg Tablet] Loratadine 10 mg PO DAILY PRN 12/16/16 02/24/18 History Ondansetron [Zofran ODT] 8 mg PO Q8HR PRN #20 tab 02/19/18 02/24/18 Rx traMADol HCl [Ultram] 50 - 100 mg PO Q6H PRN #20 tab 02/19/18 02/24/18 Rx Amoxic-Pot Clav 500-125 mg 1 tab PO BID 02/24/18 02/24/18 History [Augmentin 500-125 mg] Omeprazole 20 mg PO DAILY 02/24/18 02/24/18 History Allergies Allergy/AdvReac Type Severity Reaction Status Date / Time No Known Allergies Allergy Verified 02/24/18 07:48 Surgical - Exam Osteopathic Statement: *. No significant issues noted on an osteopathic structural exam other than those noted in the History and Physical/Consult. Vital Signs Temp Pulse Resp BP Pulse Ox 99.2 F 82 18 103/55 95 02/23/18 23:44 02/23/18 23:44 02/23/18 23:44 02/23/18 23:44 02/23/18 23:44 - General well developed, well nourished, no distress - Eyes PERRL - ENT normal mucosa - Neck no masses, trachea midline - Cardiovascular Rhythm: regular - Abdomen Abdomen: soft, non tender - Neurologic normal coordination, normal sensation - Psychiatric oriented to time, oriented to person, oriented to place Results - Labs 02/25/18 07:35 02/25/18 07:35 Abnormal Lab Results - Last 24 Hours (Table) 02/24/18 02/25/18 02/25/18 Range/Units 17:50 07:35 07:35 RBC 3.74 L (4.30-5.90) m/uL Hgb 11.3 L (13.0-17.5) gm/dL Hct 33.5 L (39.0-53.0) % Lymphocytes # 0.7 L (1.0-4.8) k/uL Sodium 136 L (137-145) mmol/L Potassium 3.4 L (3.5-5.1) mmol/L Carbon Dioxide 18 L 16 L (22-30) mmol/L BUN 76 H 57 H (9-20) mg/dL Creatinine 3.10 H 2.21 H (0.66-1.25) mg/dL Glucose 105 H (74-99) mg/dL AST 76 H (17-59) U/L Alkaline Phosphatase 237 H (38-126) U/L Total Protein 6.1 L (6.3-8.2) g/dL Albumin 3.3 L (3.5-5.0) g/dL Diabetes panel 02/24/18 02/25/18 Range/Units 17:50 07:35 Sodium 136 L 138 (137-145) mmol/L Potassium 3.6 3.4 L (3.5-5.1) mmol/L Chloride 99 102 (98-107) mmol/L Carbon Dioxide 18 L 16 L (22-30) mmol/L BUN 76 H 57 H (9-20) mg/dL Creatinine 3.10 H 2.21 H (0.66-1.25) mg/dL Glucose 99 105 H (74-99) mg/dL Calcium 8.7 8.6 (8.4-10.2) mg/dL AST 76 H (17-59) U/L ALT 68 (21-72) U/L Alkaline Phosphatase 237 H (38-126) U/L Total Protein 6.1 L (6.3-8.2) g/dL Albumin 3.3 L (3.5-5.0) g/dL Calcium panel 02/24/18 02/25/18 Range/Units 17:50 07:35 Calcium 8.7 8.6 (8.4-10.2) mg/dL Phosphorus 3.2 (2.5-4.5) mg/dL Albumin 3.3 L (3.5-5.0) g/dL Pituitary panel 02/24/18 02/25/18 Range/Units 17:50 07:35 Sodium 136 L 138 (137-145) mmol/L Potassium 3.6 3.4 L (3.5-5.1) mmol/L Chloride 99 102 (98-107) mmol/L Carbon Dioxide 18 L 16 L (22-30) mmol/L BUN 76 H 57 H (9-20) mg/dL Creatinine 3.10 H 2.21 H (0.66-1.25) mg/dL Glucose 99 105 H (74-99) mg/dL Calcium 8.7 8.6 (8.4-10.2) mg/dL Adrenal panel 02/24/18 02/25/18 Range/Units 17:50 07:35 Sodium 136 L 138 (137-145) mmol/L Potassium 3.6 3.4 L (3.5-5.1) mmol/L Chloride 99 102 (98-107) mmol/L Carbon Dioxide 18 L 16 L (22-30) mmol/L BUN 76 H 57 H (9-20) mg/dL Creatinine 3.10 H 2.21 H (0.66-1.25) mg/dL Glucose 99 105 H (74-99) mg/dL Calcium 8.7 8.6 (8.4-10.2) mg/dL Total Bilirubin 0.7 (0.2-1.3) mg/dL AST 76 H (17-59) U/L ALT 68 (21-72) U/L Alkaline Phosphatase 237 H (38-126) U/L Total Protein 6.1 L (6.3-8.2) g/dL Albumin 3.3 L (3.5-5.0) g/dL Assessment and Plan Assessment: Symptomatic cholelithiasis, KATIE, arrhythmia Plan: No plans for acute surgical intervention at this time. Patient has a scheduled surgery on Tuesday. If he is stable medically for both discharge and elective surgery we'll plan on proceeding with elective surgery as an outpatient on Tuesday. If he is not medically stable we can delay surgery until patient is medically optimized. Thank you for involving us in this patient's care please contact me with any further questions or concerns
--- NOTE | 2018-02-25 12:06 | P.PN ---
Subjective Progress Note Date: 02/25/18 Principal diagnosis: Abdominal pain, acute cholecystitis, acute kidney injury, urinary retention, gastric ulcer, anemia and significant drop in hemoglobin, pickups. 87-year-old male with known for the last 2 years with past medical history of kidney stone history of TIA GERD hypertension and large prostate who was at emergency room last Tuesday with severe abdominal pain was diagnosed with acute cholecystitis with abnormal finding in the liver as well consistent with possible early cirrhosis. Patient was seen in the office on Tuesday and plan to see one of the general surgeon for possibility of surgery this coming week. Patient ended up [facility] again on Tuesday night and found to have creatinine of 2.0 with elevated BUN and apparently was sent home from the ER with prescription for tramadol for pain. He continued to have significant pain and discomfort bloating sensation nausea feeling not been able to eat or drink become quite bed dry dehydrated not been able to void as well. Patient ended up in [facility] apartment on 02/23 with above complaint was seen and evaluated surprisingly this time his creatinine was up to 5.1 with bun up to 92 mild anemia with hemoglobin down to 10.6. Patient was diagnosed with acute kidney failure with severe gastritis and cholecystitis. Patient had thickened arrhythmia with multiple PVCs and Q waves in the inferior leads consistent with possible OR in the past which patient never remember having problem. Patient was supposed to go for cardiac workup in the next 2 weeks. Doing slightly but better except continue to have significant headache up with distended abdomen and nausea but symptom are slightly better than yesterday. No significant drop in hemoglobin last 24 hours compared to yesterday. Objective - Vital Signs Vital signs: Vital Signs Temp 99.4 F 02/25/18 06:48 Pulse 91 02/25/18 06:48 Resp 16 02/25/18 09:31 BP 113/67 02/25/18 06:48 Pulse Ox 95 02/25/18 06:48 Intake & Output 02/24/18 02/25/18 02/25/18 18:59 06:59 18:59 Intake Total 0 0 Output Total 525 2325 Balance -725 -1762 0 Weight 77 kg 77 kg Intake: Oral 0 0 Output: Urine 290 1809 Other: Voiding Method Indwelling Catheter Indwelling Catheter Indwelling Catheter # Bowel Movements 2 1 - Constitutional General appearance: Present: cooperative, disheveled, no acute distress. Absent : average body habitus, mild distress, morbidly obese, obese, severe distress, thin - EENT Eyes: Present: normal appearance. Absent: abnormal pupil, anicteric sclerae, disc margins sharp, edentulous, EOMI, PERRLA, fundus normal, photophobia, dentition normal, poor dentition, ptosis, scleral icterus ENT: Present: hard of hearing, pharyngeal erythema. Absent: hearing grossly normal, NA/AT, normal oropharynx, other, thrush, tonsillar exudates, tonsillar swelling Ears: bilateral: normal - Neck Neck: Present: normal ROM. Absent: lymphadenopathy, other, rigidity, stridor, thyromegaly Carotids: bilateral: upstroke normal Thyroid: bilateral: normal size, enlarged - Respiratory Respiratory: bilateral: diminished, dullness - Cardiovascular Rhythm: regular Heart sounds: normal: S1, S2 Abnormal Heart Sounds: Present: systolic murmur, S3 Gallop - Gastrointestinal General gastrointestinal: Present: distended, hepatomegaly, hyperactive bowel sounds, normal bowel sounds, organomegaly, splenomegaly, tenderness. Absent: absent bowel sounds, decreased bowel sounds, rigid, scaphoid, soft, umbilical hernia, ventral hernia - Integumentary Integumentary: Present: cellulitis, normal, pale, rash. Absent: calor, cyanotic , decreased turgor, flushed, jaundiced, normal turgor, ulcer - Neurologic Neurologic: Present: CNII-XII intact. Absent: focal deficits - Musculoskeletal Musculoskeletal: Present: gait normal, generalized weakness, strength equal bilaterally. Absent: right sided weakness, left sided weakness - Psychiatric Psychiatric: Present: A&O x's 3, appropriate affect - Labs CBC & Chem 7: 02/25/18 07:35 02/25/18 07:35 Labs: Abnormal Lab Results - Last 24 Hours (Table) 02/24/18 02/25/18 02/25/18 Range/Units 17:50 07:35 07:35 RBC 3.74 L (4.30-5.90) m/uL Hgb 11.3 L (13.0-17.5) gm/dL Hct 33.5 L (39.0-53.0) % Lymphocytes # 0.7 L (1.0-4.8) k/uL Sodium 136 L (137-145) mmol/L Potassium 3.4 L (3.5-5.1) mmol/L Carbon Dioxide 18 L 16 L (22-30) mmol/L BUN 76 H 57 H (9-20) mg/dL Creatinine 3.10 H 2.21 H (0.66-1.25) mg/dL Glucose 105 H (74-99) mg/dL AST 76 H (17-59) U/L Alkaline Phosphatase 237 H (38-126) U/L Total Protein 6.1 L (6.3-8.2) g/dL Albumin 3.3 L (3.5-5.0) g/dL Assessment and Plan Plan: 1 severe abdominal pain: Combination off obstructive uropathy, acute cholecystitis and cholelithiasis, severe acute gastritis and gastroenteritis. With treat underlying disease continue hydration and continue Osborne catheter for now. Continue current treatment hopefully patient is prepared for gallbladder surgery on Tuesday 2 acute kidney failure: Much better so far creatinine down in the 2 level, still seen urology still have fully catheter and still on IV fluid repeat BUN/ creatinine tomorrow. 3 acute cholecystitis patient was seen Dr. Santiago and supposed to go for surgery on Tuesday, plan might be continue the same specially if patient is more stable by then. 4 acute urinary tract infection: With the above problem patient will be started on Levaquin 250 mg a day for now which he beneficial both for the biliary tree infection along with the urinary tract. 5 acute gastritis: With significant drop in hemoglobin along with mid abdominal pain patient will be continue on pantoprazole IV continue to watch for any GI bleed. 6 arrhythmia: Mostly PVCs with no sign of A. fib or ventricular arrhythmia, his electrolyte will be watch carefully his thyroid testing is up-to-date and normal. 7 abnormal EKG with Q waves in the inferior leads: Patient will be going for some sort of chemical nuclear stress test when he is more stable. 8 hypertension: Blood pressure has been low lately will continue Elsa daily. 9 severe GERD/GI prophylaxis: We'll continue patient on pantoprazole and Zofran for nausea.
--- NOTE | 2018-02-25 16:04 | P.PN ---
Subjective Progress Note Date: 02/25/18 Seen and examined for the follow-up of acute kidney injury. Sitting comfortably in the chair tolerating diet eating drinking. Still has Osborne catheter draining good amount of urine. Objective - Vital Signs Vital signs: Vital Signs Temp 98.3 F 02/25/18 14:26 Pulse 82 02/25/18 14:26 Resp 16 02/25/18 14:26 BP 115/68 02/25/18 14:26 Pulse Ox 95 02/25/18 14:26 Intake & Output 02/24/18 02/25/18 02/25/18 18:59 06:59 18:59 Intake Total 0 0 Output Total 725 2325 Balance -725 -5629 0 Weight 77 kg 77 kg Intake: Oral 0 0 Output: Urine 731 6351 Other: Voiding Method Indwelling Catheter Indwelling Catheter Indwelling Catheter # Voids 1 # Bowel Movements 2 1 1 - Exam No acute distress S1-S2 heard No edema Osborne Catheter - Labs CBC & Chem 7: 02/25/18 07:35 02/25/18 07:35 Labs: Abnormal Lab Results - Last 24 Hours (Table) 02/24/18 02/25/18 02/25/18 Range/Units 17:50 07:35 07:35 RBC 3.74 L (4.30-5.90) m/uL Hgb 11.3 L (13.0-17.5) gm/dL Hct 33.5 L (39.0-53.0) % Lymphocytes # 0.7 L (1.0-4.8) k/uL Sodium 136 L (137-145) mmol/L Potassium 3.4 L (3.5-5.1) mmol/L Carbon Dioxide 18 L 16 L (22-30) mmol/L BUN 76 H 57 H (9-20) mg/dL Creatinine 3.10 H 2.21 H (0.66-1.25) mg/dL Glucose 105 H (74-99) mg/dL AST 76 H (17-59) U/L Alkaline Phosphatase 237 H (38-126) U/L Total Protein 6.1 L (6.3-8.2) g/dL Albumin 3.3 L (3.5-5.0) g/dL Assessment and Plan Assessment: Impression: #1 nonoliguric acute kidney injury secondary to prerenal process and component of urinary retention. #2 urinary retention status post Osborne #3 metabolic acidosis secondary to acute kidney injury #4 hypertension #5 hyponatremia resolved #6 hypokalemia Recommendations: #1 encourage oral intake, stop IV fluids by tomorrow. #2 discontinue Osborne catheters monitor postvoid residuals. If postvoid residual was more than 250 reinsert Osborne catheter. #3 if renal functions continue to improve stable from nephrology point of view to be discharged to be followed up in the office 2-3 weeks #4 continue potassium replacement
[2018-02-25] MEDS: TAMSULOSIN 0.4 MG CAP.ER.24H PO SCH (17:29)
[2018-02-25] MEDS ORDERED: TEMAZEPAM 15 MG CAP PO PRN (19:32)
[2018-02-26] MEDS: ACETAMINOPHEN TAB 325 MG TAB PO PRN ×2 (01:07→23:07)
[2018-02-26] MEDS: SODIUM CHLORIDE 0.9% 1,000 ML IV SCH ×2 (02:44→12:00)
--- NOTE | 2018-02-26 03:37 | CONS ---
CONSULTATION This is an 87-year-old gentleman who apparently sees Dr. Dawson in the outpatient setting. He has a history of hypertension. He was scheduled for acute cholecystectomy, but for the last 3 days he has been having some abdominal pain, nausea, vomiting type picture and came into the hospital with a significantly elevated creatinine, has been hydrated and he feels better. His creatinine has come down to 2.2. He is resting comfortably without symptoms. I was asked to see him mainly because of an abnormal EKG with some isolated PVCs. The patient on questioning denies any chest pain. He feels better. His abdominal pain has improved. He does not have any chest discomfort. He does feel occasional fluttering in the chest. On reviewing the rhythm strips and EKGs, there is evidence of isolated PVCs but no significant sustained arrhythmia was noted. EKG actually revealed a sinus mechanism with isolated PVCs and also there is evidence of old inferior TX, but no acute changes are noted. The patient, on arrival, had a significantly elevated creatinine of up to 5.0 and it has improved to 2.21 at this time. His potassium is 3.4 and magnesium is 1.8. He is being hydrated cautiously. Echocardiogram from yesterday revealed an ejection fraction of 60-65% without significant pulmonary hypertension and there was evidence of some aortic sclerosis. EXAMINATION: VITAL SIGNS: Blood pressure is 118/70, pulse rate is 74 per minute regular. HEENT: Unremarkable. Fundus was not examined by me. NECK: Supple. There is no significant JVD. There is no carotid bruit. HEART exam reveals S1, S2 with a short systolic murmur. Preserved second heart sound. LUNGS reveal diminished air entry. ABDOMEN is soft, nontender. EXTREMITIES: Lower extremities reveal diminished pulses. CENTRAL NERVOUS SYSTEM is grossly within normal limits without focal deficits. IMPRESSION: 1. Isolated ventricular ectopy in a patient with hypertension. 2. Acute renal injury with improvement. 3. History of hypertension. 4. History of cholecystitis being scheduled for elective gallbladder surgery. RECOMMENDATIONS: I am recommending that we supplement potassium and magnesium gingerly. Initiate him on Lopressor 12.5 mg b.i.d. and also supplement magnesium, potassium and repeat labs in the morning. The patient is scheduled to have a cholecystectomy and this can be performed electively, but I do not see any absolute contraindication. Apparently 2 years ago he had a normal stress test, but this was not verified. We will add a small dose of beta jesus, supplement magnesium and potassium. Repeat labs in the morning. Thank you very much for the consult. FIFI / CHERIEN: [id number] /
[2018-02-26 08:24] LABS: Basophils % (A) 0 %; Eosinophils # (A) 0.1 k/uL (0-0.7); Eosinophils % (A) 1 %; HCT 33.2 % (39.0-53.0); HGB 11.2 gm/dL (13.0-17.5); Lymphocytes # (A) 1.1 k/uL (1.0-4.8); Lymphocytes % (A) 18 %; MCH 30.2 pg (25.0-35.0); MCHC 33.8 g/dL (31.0-37.0); MCV 89.2 fL (80.0-100.0); Mean Platelet Volume 6.7; Monocytes # (A) 0.5 k/uL (0-1.0); Monocytes % (A) 7 %; Neutrophils # (A) 4.4 k/uL (1.3-7.7); Neutrophils % (A) 71 %; Platelet Count 296 k/uL (150-450); RBC 3.72 m/uL (4.30-5.90); RDW 14.2 % (11.5-15.5); WBC 6.2 k/uL (3.8-10.6)
[2018-02-26] MEDS: SODIUM BICARBONATE TAB 650 MG TAB PO SCH ×2 (08:29→20:19)
[2018-02-26] MEDS: SUCRALFATE 1 GM TAB PO SCH ×4 (08:29→20:19)
[2018-02-26] MEDS: POTASSIUM CHLORIDE ER 20 MEQ TAB.ER PO SCH (08:29)
[2018-02-26] MEDS: METOPROLOL TARTRATE 25 MG TAB PO SCH (08:30)
[2018-02-26] MEDS: amLODIPine 5 MG TAB PO SCH (08:30)
[2018-02-26] MEDS: HEPARIN SODIUM,PORCINE 5,000 UNIT/ML 1 ML VIAL SQ SCH ×2 (08:30→15:19)
[2018-02-26] MEDS: METOCLOPRAMIDE 5 MG/ML 2 ML VIAL IVP SCH ×3 (08:34→16:50)
[2018-02-26 08:38] LABS: Calcium 8.1 mg/dL (8.4-10.2); Potassium 3.3 mmol/L (3.5-5.1)
--- NOTE | 2018-02-26 09:47 | CONS ---
CONSULTATION Mr. Caballero had acute kidney injury. He is doing well this morning. He has no chest pain. His breathing is easier. He has slept well last night. I am not seeing any significant ventricular ectopy at this time. His labs from this morning are still pending, but I expect the creatinine to improve. Given the fact that his acute kidney injury has resolved. If his labs are good and is able to urinate, he can be discharged on his current medical regimen. The combination of amlodipine at a reduced dose and beta jesus seems to be helping. Vital signs are stable. S1-S2 heard normally. Short systolic murmur noted. Lungs are clear. Abdomen and lower exam extremity exam is unchanged. MMODL / IJN: [id number] /
--- NOTE | 2018-02-26 10:21 | P.PN ---
Subjective Progress Note Date: 02/26/18 Principal diagnosis: Abdominal pain, acute cholecystitis, acute kidney injury, urinary retention, gastric ulcer, anemia and significant drop in hemoglobin, pickups. 87-year-old male with known for the last 2 years with past medical history of kidney stone history of TIA GERD hypertension and large prostate who was at emergency room last Tuesday with severe abdominal pain was diagnosed with acute cholecystitis with abnormal finding in the liver as well consistent with possible early cirrhosis. Patient was seen in the office on Tuesday and plan to see one of the general surgeon for possibility of surgery this coming week. Patient ended up [facility] department again on Tuesday night and found to have creatinine of 2.0 with elevated BUN and apparently was sent home from the ER with prescription for tramadol for pain. He continued to have significant pain and discomfort bloating sensation nausea feeling not been able to eat or drink become quite bed dry dehydrated not been able to void as well. Patient ended up in [facility] apartment on 02/23 with above complaint was seen and evaluated surprisingly this time his creatinine was up to 5.1 with bun up to 92 mild anemia with hemoglobin down to 10.6. Patient was diagnosed with acute kidney failure with severe gastritis and cholecystitis. Patient had thickened arrhythmia with multiple PVCs and Q waves in the inferior leads consistent with possible MT in the past which patient never remember having problem. Patient was supposed to go for cardiac workup in the next 2 weeks. Doing slightly but better except continue to have significant headache up with distended abdomen and nausea but symptom are slightly better than yesterday. No significant drop in hemoglobin last 24 hours compared to yesterday. 02/26: Patient had multiple bowel movement yesterday from his bowel regime, creatinine is down significantly today still not close to baseline. Patient still have fully catheter debating whether to DC it or remain on will consult urology for the purpose if the catheter DC today in able to void on his own with no residual keep him without a catheter. Still planning to do surgery for gallbladder sometimes this week. Objective - Vital Signs Vital signs: Vital Signs Temp 98.0 F 02/26/18 05:30 Pulse 69 02/26/18 05:30 Resp 20 02/26/18 08:37 BP 111/67 02/26/18 05:30 Pulse Ox 93 L 02/26/18 05:30 Intake & Output 02/25/18 02/26/18 02/26/18 18:59 06:59 18:59 Intake Total 0 200 Output Total 1750 Balance 0 -1750 200 Weight 77 kg 77 kg Intake: Oral 0 200 Output: Urine 1750 Other: Voiding Method Indwelling Catheter Indwelling Catheter Indwelling Catheter # Voids 1 # Bowel Movements 1 1 - Constitutional General appearance: Present: cooperative, disheveled. Absent: average body habitus, mild distress, morbidly obese, no acute distress, obese, severe distress, thin - EENT Eyes: Present: normal appearance. Absent: abnormal pupil, anicteric sclerae, disc margins sharp, edentulous, EOMI, PERRLA, fundus normal, photophobia, dentition normal, poor dentition, ptosis, scleral icterus ENT: Present: hard of hearing, normal oropharynx. Absent: hearing grossly normal, NA/AT, other, pharyngeal erythema, thrush, tonsillar exudates, tonsillar swelling Ears: bilateral: normal - Neck Neck: Present: normal ROM. Absent: lymphadenopathy, other, rigidity, stridor, thyromegaly Carotids: bilateral: upstroke normal, upstroke delayed Thyroid: bilateral: normal size - Respiratory Respiratory: bilateral: diminished, dullness - Cardiovascular Rhythm: regular Heart sounds: normal: S1, S2 Abnormal Heart Sounds: Present: systolic murmur - Gastrointestinal General gastrointestinal: Present: decreased bowel sounds, distended, organomegaly, tenderness. Absent: absent bowel sounds, hepatomegaly, hyperactive bowel sounds, normal bowel sounds, rigid, scaphoid, soft, splenomegaly, umbilical hernia, ventral hernia - Integumentary Integumentary: Present: decreased turgor, pale, rash. Absent: calor, cellulitis , cyanotic, flushed, jaundiced, normal, normal turgor, ulcer - Neurologic Neurologic: Present: CNII-XII intact - Musculoskeletal Musculoskeletal: Present: gait normal, generalized weakness, strength equal bilaterally. Absent: right sided weakness, left sided weakness - Psychiatric Psychiatric: Present: A&O x's 3, appropriate affect. Absent: intact judgment & insight - Labs CBC & Chem 7: 02/26/18 07:45 02/26/18 07:45 Labs: Abnormal Lab Results - Last 24 Hours (Table) 02/26/18 02/26/18 Range/Units 07:45 07:45 RBC 3.72 L (4.30-5.90) m/uL Hgb 11.2 L (13.0-17.5) gm/dL Hct 33.2 L (39.0-53.0) % Potassium 3.3 L (3.5-5.1) mmol/L Carbon Dioxide 21 L (22-30) mmol/L BUN 32 H (9-20) mg/dL Creatinine 1.38 H (0.66-1.25) mg/dL Glucose 104 H (74-99) mg/dL Calcium 8.1 L (8.4-10.2) mg/dL Assessment and Plan Plan: 1 severe abdominal pain: Combination off obstructive uropathy, acute cholecystitis and cholelithiasis, severe acute gastritis and gastroenteritis. With treat underlying disease continue hydration and continue Osborne catheter for now. Continue current treatment hopefully patient is prepared for gallbladder surgery on Tuesday. Treatment has been working good so far and patient is more stable 2 acute kidney failure: Much better so far creatinine down in the 2 level, still seen urology still have fully catheter and still on IV fluid repeat BUN/ creatinine tomorrow. Repeat another bun and creatinine tomorrow but patient is almost close to his baseline. 3 acute cholecystitis patient was seen Dr. Santiago and supposed to go for surgery on Tuesday, plan might be continue the same specially if patient is more stable by then. 4 acute urinary tract infection, with enlarged prostate and obstructive uropathy : With the above problem patient will be started on Levaquin 250 mg a day for now which he beneficial both for the biliary tree infection along with the urinary tract. 5 acute gastritis: With significant drop in hemoglobin along with mid abdominal pain patient will be continue on pantoprazole IV continue to watch for any GI bleed. 6 arrhythmia: Mostly PVCs with no sign of A. fib or ventricular arrhythmia, his electrolyte will be watch carefully his thyroid testing is up-to-date and normal. 7 abnormal EKG with Q waves in the inferior leads: Patient will be going for some sort of chemical nuclear stress test when he is more stable. 8 hypertension: Blood pressure has been low lately will continue Elsa daily. 9 severe GERD/GI prophylaxis: We'll continue patient on pantoprazole and Zofran for nausea. Discharge planning: If his BUN/creatinine are better his catheter is out tomorrow and agreeable by general surgery patient might be able to go home tomorrow to return to have his surgery sometime next week.
[2018-02-26] MEDS: LEVOFLOXACIN 500MG-D5W PMX 500 MG in DEXTROSE/WATER 1 100ML.BAG IVPB SCH (10:42)
--- NOTE | 2018-02-26 13:52 | P.PN ---
Subjective Progress Note Date: 02/26/18 Seen and examined for the follow-up of acute kidney injury. Draining good amount of urine still has Osborne catheter in place and running IV fluids. Family at bedside. Objective - Vital Signs Vital signs: Vital Signs Temp 98.0 F 02/26/18 05:30 Pulse 69 02/26/18 05:30 Resp 20 02/26/18 08:37 BP 111/67 02/26/18 05:30 Pulse Ox 93 L 02/26/18 05:30 Intake & Output 02/25/18 02/26/18 02/26/18 18:59 06:59 18:59 Intake Total 0 200 Output Total 1750 Balance 0 -1750 200 Weight 77 kg 77 kg Intake: Oral 0 200 Output: Urine 1750 Other: Voiding Method Indwelling Catheter Indwelling Catheter Indwelling Catheter # Voids 1 # Bowel Movements 1 1 - Exam No acute distress S1-S2 heard No edema Osborne Catheter - Labs CBC & Chem 7: 02/26/18 07:45 02/26/18 07:45 Labs: Abnormal Lab Results - Last 24 Hours (Table) 02/26/18 02/26/18 Range/Units 07:45 07:45 RBC 3.72 L (4.30-5.90) m/uL Hgb 11.2 L (13.0-17.5) gm/dL Hct 33.2 L (39.0-53.0) % Potassium 3.3 L (3.5-5.1) mmol/L Carbon Dioxide 21 L (22-30) mmol/L BUN 32 H (9-20) mg/dL Creatinine 1.38 H (0.66-1.25) mg/dL Glucose 104 H (74-99) mg/dL Calcium 8.1 L (8.4-10.2) mg/dL Assessment and Plan Assessment: Impression: #1 nonoliguric acute kidney injury secondary to prerenal process and component of urinary retention. #2 urinary retention status post Osborne #3 metabolic acidosis secondary to acute kidney injury #4 hypertension #5 hyponatremia resolved #6 hypokalemia Recommendations: #1 DC IV fluids and Osborne catheter. #2 renal function close to baseline #3 stable from nephrology point of view for discharge to be followed up in the office in 2-3 weeks. #4. 4 gallbladder surgery from nephrology point of view, he avoid hypotensive episodes.
[2018-02-26] MEDS: TAMSULOSIN 0.4 MG CAP.ER.24H PO SCH (16:46)
[2018-02-27] MEDS: HEPARIN SODIUM,PORCINE 5,000 UNIT/ML 1 ML VIAL SQ SCH ×2 (02:43→08:15)
[2018-02-27 07:55] VITALS: BP 118/73; PULSE 78; RESP 16; TEMP 98.1
[2018-02-27 08:07] LABS: Basophils % (A) 1 %; Eosinophils # (A) 0.1 k/uL (0-0.7); Eosinophils % (A) 2 %; HCT 32.9 % (39.0-53.0); HGB 11.3 gm/dL (13.0-17.5); Lymphocytes # (A) 1.2 k/uL (1.0-4.8); Lymphocytes % (A) 22 %; MCH 30.5 pg (25.0-35.0); MCHC 34.5 g/dL (31.0-37.0); MCV 88.4 fL (80.0-100.0); Mean Platelet Volume 6.7; Monocytes # (A) 0.6 k/uL (0-1.0); Monocytes % (A) 11 %; Neutrophils # (A) 3.4 k/uL (1.3-7.7); Neutrophils % (A) 62 %; Platelet Count 327 k/uL (150-450); RBC 3.72 m/uL (4.30-5.90); RDW 14.1 % (11.5-15.5); WBC 5.5 k/uL (3.8-10.6)
[2018-02-27] MEDS: POTASSIUM CHLORIDE ER 20 MEQ TAB.ER PO SCH (08:14)
[2018-02-27] MEDS: SODIUM BICARBONATE TAB 650 MG TAB PO SCH (08:14)
[2018-02-27] MEDS: SUCRALFATE 1 GM TAB PO SCH (08:14)
[2018-02-27] MEDS: amLODIPine 5 MG TAB PO SCH (08:15)
[2018-02-27] MEDS: METOPROLOL TARTRATE 25 MG TAB PO SCH (08:15)
[2018-02-27] MEDS: METOCLOPRAMIDE 5 MG/ML 2 ML VIAL IVP SCH (08:15)
[2018-02-27 08:23] LABS: Calcium 8.2 mg/dL (8.4-10.2); Potassium 3.2 mmol/L (3.5-5.1); Total Bilirubin 0.4 mg/dL (0.2-1.3); Total Protein 5.6 g/dL (6.3-8.2)
[2018-02-27] MEDS ORDERED: POTASSIUM CHLORIDE ER 20 MEQ TAB.ER PO STA (10:58)
--- NOTE | 2018-02-27 11:29 | P.DS ---
Providers Date of admission: 02/24/18 01:55 Attending physician: Rivas Dawson Consults: 02/24/18 01:56 Consult Physician Routine Consulting Provider: Leonora Cruz Consult Reason/Comments: KATIE, Retention Do you want consulting provider notified?: Yes, Notify in am 02/24/18 10:19 Consult Physician Routine Consulting Provider: Jaylon Belcher Consult Reason/Comments: abnormal EKG Do you want consulting provider notified?: Yes 02/24/18 10:22 Consult Physician Routine Consulting Provider: Bernardino Arthur Consult Reason/Comments: urinary retention Do you want consulting provider notified?: Yes 02/24/18 17:25 Consult Physician Routine Consulting Provider: Primo Pelayo Consult Reason/Comments: abdominal pain. cholycystitis. decrease in hemoglobin. Do you want consulting provider notified?: Yes Primary care physician: Rivas Dawson Pertinent Studies: Abdominal pain, acute cholecystitis, acute kidney injury, urinary retention, gastric ulcer, anemia and significant drop in hemoglobin, pickups. 87-year-old male with known for the last 2 years with past medical history of kidney stone history of TIA GERD hypertension and large prostate who was at emergency room last Tuesday with severe abdominal pain was diagnosed with acute cholecystitis with abnormal finding in the liver as well consistent with possible early cirrhosis. Patient was seen in the office on Tuesday and plan to see one of the general surgeon for possibility of surgery this coming week. Patient ended up [facility] department again on Tuesday night and found to have creatinine of 2.0 with elevated BUN and apparently was sent home from the ER with prescription for tramadol for pain. He continued to have significant pain and discomfort bloating sensation nausea feeling not been able to eat or drink become quite bed dry dehydrated not been able to void as well. [facility] with above complaint was seen and evaluated surprisingly this time his creatinine was up to 5.1 with bun up to 92 mild anemia with hemoglobin down to 10.6. Patient was diagnosed with acute kidney failure with severe gastritis and cholecystitis. Patient had thickened arrhythmia with multiple PVCs and Q waves in the inferior leads consistent with possible PA in the past which patient never remember having problem. Patient was supposed to go for cardiac workup in the next 2 weeks. Doing slightly but better except continue to have significant headache up with distended abdomen and nausea but symptom are slightly better than yesterday. No significant drop in hemoglobin last 24 hours compared to yesterday. 02/26: Patient had multiple bowel movement yesterday from his bowel regime, creatinine is down significantly today still not close to baseline. Patient still have fully catheter debating whether to DC it or remain on will consult urology for the purpose if the catheter DC today in able to void on his own with no residual keep him without a catheter. Still planning to do surgery for gallbladder sometimes this week. 02/27: Patient is doing much better so far kidney function improved and back to normal, no further distention abdominal pain, patient is tolerating his oral antibiotic quite bed, no sign of acute gastritis ulcer or bleed. Patient is stable to be discharged home and go for his follow-up and surgery sometimes early this week. Also patient is cleared by cardiology for surgery but will require further cardiology workup including stress test in the meanwhile he is to remain on beta jesus at least till after the surgery. Assessment and Plan Plan: 1 severe abdominal pain: Combination off obstructive uropathy, acute cholecystitis and cholelithiasis, severe acute gastritis and gastroenteritis. With treat underlying disease continue hydration and continue Osborne catheter for now. Continue current treatment hopefully patient is prepared for gallbladder surgery on Tuesday. Treatment has been working good so far and patient is more stable 2 acute kidney failure: Much better so far creatinine down in the 2 level, still seen urology still have fully catheter and still on IV fluid repeat BUN/ creatinine tomorrow. Repeat another bun and creatinine tomorrow but patient is almost close to his baseline. 3 acute cholecystitis patient was seen Dr. Santiago and supposed to go for surgery on Tuesday, plan might be continue the same specially if patient is more stable by then. 4 acute urinary tract infection, with enlarged prostate and obstructive uropathy : With the above problem patient will be started on Levaquin 250 mg a day for now which he beneficial both for the biliary tree infection along with the urinary tract. 5 acute gastritis: With significant drop in hemoglobin along with mid abdominal pain patient will be continue on pantoprazole IV continue to watch for any GI bleed. 6 arrhythmia: Mostly PVCs with no sign of A. fib or ventricular arrhythmia, was started on metoprolol by cardiology and agreed to keep a monitor for now. 7 abnormal EKG with Q waves in the inferior leads: Patient will be going for some sort of chemical nuclear stress test when he is more stable. 8 hypertension: Blood pressure has been low lately will continue Elsa daily. 9 severe GERD/GI prophylaxis: We'll continue patient on pantoprazole and Zofran for nausea. Discharge planning: Discharge home follow-up with his surgery on Tuesday, follow-up in the office in few days. Patient Condition at Discharge: Stable Plan - Discharge Summary Discharge Rx Participant: Yes New Discharge Prescriptions: New Acetaminophen Tab [Tylenol] 650 mg PO Q6HR PRN tab PRN Reason: Mild Pain Or Fever > 100.5 Levofloxacin [Levaquin] 500 mg PO Q48H #5 tab Metoprolol Tartrate [Lopressor] 25 mg PO DAILY #60 tab Potassium Chloride ER [K-Dur 20] 20 meq PO DAILY #3 tab.er.prt Tamsulosin [Flomax] 0.4 mg PO PC-SUPPER #30 cap.er.24h Temazepam [Restoril] 15 mg PO HS PRN cap PRN Reason: Insomnia Potassium Chloride [Klor-Con 20] 20 meq PO DAILY #3 tab Continue amLODIPine BES/OLMESARTAN MED [Elsa 10-20 mg Tablet] 1 tab PO DAILY@1700 Loratadine 10 mg PO DAILY PRN PRN Reason: Allergy Symptoms Ondansetron [Zofran ODT] 8 mg PO Q8HR PRN #20 tab PRN Reason: Nausea traMADol HCl [Ultram] 50 - 100 mg PO Q6H PRN #20 tab PRN Reason: Pain Changed Omeprazole 20 mg PO BID #60 capsule.dr Discontinued Amoxic-Pot Clav 500-125 mg [Augmentin 500-125 mg] 1 tab PO BID Discharge Medication List amLODIPine BES/OLMESARTAN MED [Elsa 10-20 mg Tablet] 1 tab PO DAILY@1700 [History] Loratadine 10 mg PO DAILY PRN 12/16/16 [History] Ondansetron [Zofran ODT] 8 mg PO Q8HR PRN #20 tab 02/19/18 [Rx] traMADol HCl [Ultram] 50 - 100 mg PO Q6H PRN #20 tab 02/19/18 [Rx] Acetaminophen Tab [Tylenol] 650 mg PO Q6HR PRN tab 02/27/18 [Rx] Levofloxacin [Levaquin] 500 mg PO Q48H #5 tab 02/27/18 [Rx] Metoprolol Tartrate [Lopressor] 25 mg PO DAILY #60 tab 02/27/18 [Rx] Omeprazole 20 mg PO BID #60 capsule.dr 02/27/18 [Rx] Potassium Chloride ER [K-Dur 20] 20 meq PO DAILY #3 tab.er.prt 02/27/18 [Rx] Potassium Chloride [Klor-Con 20] 20 meq PO DAILY #3 tab 02/27/18 [Rx] Tamsulosin [Flomax] 0.4 mg PO PC-SUPPER #30 cap.er.24h 02/27/18 [Rx] Temazepam [Restoril] 15 mg PO HS PRN cap 02/27/18 [Rx] Follow up Appointment(s)/Referral(s): Esteban Baptiste MD [STAFF PHYSICIAN] - 1 Week
[2018-02-28] MEDS ORDERED: LEVOFLOXACIN 500 MG TAB PO SCH (09:00)
--- NOTE | 2018-03-09 15:42 | CDI ---
Last Revision, September 2017 Documentation Clarification Form Date: 03/09/18 From: Ev Roth Phone: If you have question, contact Meryl Garza Vehicle Washer at M-F 8:30 am to 6pm Admit Date: 02/24/2018 1:55:00 AM Patient Name: Rivas aCballero Visit Number: [id number] Discharge Date: 02/27/18 ATTENTION: The Clinical Documentation Specialists (CDI) and [facility] Coding Staff appreciate your assistance in clarifying documentation. Please respond to the clarification below the line at the bottom and electronically sign. The CDI & [facility] Coding staff will review the response and follow-up if needed. Please note: Queries are made part of the Legal Health Record. If you have any questions, please contact the author of this message via ITS. Dr. Rivas Dawson Conflicting documentation has been found in the medical record. On the H&P acute tubular necrosis is documented, however acute renal failure is documented throughout the rest of the stay. BUN on admission was 87 and creatinine is 3.90. In your opinion what is the most clinically appropriate diagnosis for this patient? Acute tubular necrosis Acute renal failure Other (please specify) Unable to determine (no explanation for clinical findings) ATN MTDD
== END 2018-02-27 11:41 | disposition home or self-care (01) | DRG 683 ==
LOC: EC 23:37 → 4MS4W 02-24 01:55
PROVIDERS: ADMIT Internal Medicine Geriatric Medicine; ATTEND Internal Medicine Geriatric Medicine
DX: N17.0 Acute kidney failure with tubular necrosis (principal); K80.00 Calculus of gallbladder with acute cholecystitis without obstruction; N13.8 Other obstructive and reflux uropathy; E87.2 Acidosis; N39.0 Urinary tract infection, site not specified; E87.1 Hypo-osmolality and hyponatremia; N40.1 Benign prostatic hyperplasia with lower urinary tract symptoms; R33.9 Retention of urine, unspecified; K29.00 Acute gastritis without bleeding; I49.3 Ventricular premature depolarization; K21.9 Gastro-esophageal reflux disease without esophagitis; I10 Essential (primary) hypertension; R94.31 Abnormal electrocardiogram [ECG] [EKG]; K74.60 Unspecified cirrhosis of liver; E86.0 Dehydration; E87.6 Hypokalemia; D64.9 Anemia, unspecified; K25.9 Gastric ulcer, unspecified as acute or chronic, without hemorrhage or perforation; K52.9 Noninfective gastroenteritis and colitis, unspecified; R51 Headache; Z86.73 Personal history of transient ischemic attack (TIA), and cerebral infarction without residual deficits; Z79.899 Other long term (current) drug therapy; Z87.442 Personal history of urinary calculi
CPT/HCPCS: 36415; 51702; 51798; 76770; 80048; 80053; 81001; 83735; 84100; 85025; 93005; 93306; 96365; 99285

== ENCOUNTER 2018-03-01 08:31 | Observation (INO) | payer BC, MEDICARE ==
[2018-02-23 12:17] VITALS: BMI 26.2
[~2018-03-01 08:31] MED LIST: LACTATED RINGERS 1,000 ML IV SCH; MORPHINE SULFATE 2 MG/ML SYRINGE IV PRN; ONDANSETRON 4 MG/2 ML VIAL IVP PRN; ceFAZolin IN SWFI 2 GM/20 ML SYRINGE IVP ONE
[2018-03-01] MEDS ORDERED: LIDOCAINE 1% 20 ML VIAL (10MG/ML) FOR IV START INTRADERMA ONE (09:11)
[2018-03-01] MEDS ORDERED: fentaNYL (PF) 50 MCG/ML 2 ML AMP ONE ×2 (10:01)
[2018-03-01] MEDS ORDERED: NEOSTIGMINE 1 MG/ML 10 ML VIAL ONE ×2 (10:01)
[2018-03-01] MEDS ORDERED: POTASSIUM CHLORIDE 20 MEQ/100 ML BAG IVPB ONE (10:01)
[2018-03-01] MEDS ORDERED: PROPOFOL 10 MG/ML 20 ML VIAL IV ONE ×2 (10:01)
[2018-03-01] MEDS ORDERED: LIDOCAINE 1% INJ 10MG/ML (20 ML MDV) ONE ×2 (10:01)
[2018-03-01] MEDS ORDERED: ROCURONIUM BROMIDE 10 MG/ML 10 ML VIAL IV ONE ×2 (10:01)
[2018-03-01] MEDS ORDERED: GLYCOPYRROLATE 0.2 MG/ML 2 ML VIAL ONE ×2 (10:01)
[2018-03-01] MEDS ORDERED: SUCCINYLCHOLINE CHLORIDE 100 MG/5 ML SYR IV ONE ×2 (10:01)
[2018-03-01] MEDS ORDERED: ePHEDrine SULFATE/0.9% NACL/PF 50 MG/5 ML SYRINGE IV ONE ×2 (10:01)
[2018-03-01] MEDS ORDERED: HEPARIN SODIUM,PORCINE 5,000 UNIT/ML 1 ML VIAL ONE ×2 (10:01)
[2018-03-01] MEDS ORDERED: HYDROmorphone (PF) 1 MG/ML ONE ×2 (10:01)
[2018-03-01] MEDS ORDERED: LACTATED RINGERS 1,000 ML IV ONE (11:03)
[2018-03-01] MEDS: HYDROmorphone 0.5 MG/0.5 ML SYRINGE IVP PRN ×2 (11:50→12:28)
[2018-03-01] MEDS ORDERED: diphenhydrAMINE 50 MG/ML 1 ML VIAL IVP ONE (11:58)
--- NOTE | 2018-03-01 11:59 | P.OP ---
Date of Procedure: 03/01/18 Preoperative Diagnosis: Biliary Colic Cirrhosis Postoperative Diagnosis: Cholecystitis Procedure(s) Performed: Laparoscopic cholecystectomy Laparoscopic liver biopsy Anesthesia: MICHAEL Surgeon: Josh Pelayo Estimated Blood Loss (ml): 40 Pathology: other (Gallbladder and liver) Condition: stable Disposition: floor Indications for Procedure: 87-year-old male with consistent right upper quadrant pain. This is been debilitating to the patient. On workup he was noted to have biliary sludge. He was having right upper quadrant pain and right shoulder pain and back pain. Secondary to this, after clearance from medicine and cardiology, the patient was planned for a laparoscopic cholecystectomy. The patient provided consent prior to attending the operating suite. Operative Findings: Thickened gallbladder with multiple adhesions and friable surrounding tissue. Injected gallbladder. Description of Procedure: The patient was taken to the operating suite and placed in supine position on the operating table. Sedation was provided by anesthesia and the patient underwent endotracheal intubation. The patient was then prepped and draped in regular sterile fashion. A incision was made right lateral to the umbilicus and the abdomen was entered under direct visualization using a 12 mm Visiport trocar. Once the abdomen was entered, pneumoperitoneum was achieved. The omentum was noted to be densely adhered to the gallbladder fossa on the liver bed. The liver did appear cirrhotic. 3 additional 5 mm ports were then placed. One was placed in the subxiphoid position. 2 were placed in the right upper quadrant. Meticulous care was taken to dissect the omentum from the gallbladder and surrounding structures. This was done under blunt dissection. The gallbladder was noticed to be very thickened and difficult to grasp. A cyst needle was then placed within the gallbladder and approximately 80 mL of bilious fluid was drained. The gallbladder was then grasped and elevated and retracted into appropriate position. The infundibulum of the gallbladder was grasped and retracted laterally. Dissection was then carried to the cystic duct. The cystic duct and cystic artery was skeletonized and due to their thickened nature a clip was unable to be placed. At this point a 45 mm Endo TAMIKA stapler was fired across the cystic duct and cystic artery. Electrocautery was then used to dissect the gallbladder from the gallbladder fossa. Hemostasis was maintained throughout this process with electrocautery. The gallbladder was then placed in an Endo Catch bag and removed from the abdomen. Copious amounts of irrigation was then placed in the right upper quadrant. Hemostasis was noted to be maintained. A 19-Italian Chucho-Soto drain was then placed below the liver bed. Due to the cirrhotic nature of the liver, a liver biopsy was taken. The periumbilical incision site was closed with a Napoleon-Martina device under direct visualization. This was done with an 0 Vicryl suture in [id number] fashion. The remaining ports were removed from the abdomen. All skin incisions were then closed with 4-0 subcuticular Vicryl sutures. The patient was awakened in the operating suite and taken to postanesthesia care unit in stable condition.
[2018-03-01] MEDS ORDERED: POTASSIUM CHLORIDE 2 MEQ/ML 20 ML VIAL IVPB SCH (12:00)
[2018-03-01] MEDS ORDERED: POTASSIUM CHLORIDE 100 ML IVPB SCH (12:00)
[2018-03-01] MEDS: POTASSIUM CHLORIDE 20 MEQ in WATER FOR INJECTION 1 100ML.BAG IVPB SCH (12:09)
[2018-03-01] MEDS ORDERED: HYDROcodone/APAP 5-325MG 1 EACH TAB PO PRN (12:48)
[2018-03-01] MEDS ORDERED: NALOXONE 0.4 MG/ML 1 ML VIAL IV PRN (12:48)
[2018-03-01] MEDS ORDERED: ONDANSETRON 4 MG/2 ML VIAL IVP PRN (12:48)
[2018-03-01] MEDS: LACTATED RINGERS 1,000 ML IV SCH (13:00)
[2018-03-01] MEDS ORDERED: LORATADINE 10 MG TAB PO PRN (14:31)
[2018-03-01] MEDS ORDERED: ACETAMINOPHEN TAB 500 MG TAB PO PRN (14:31)
[2018-03-01] MEDS: MORPHINE SULFATE 2 MG/ML SYRINGE IVP PRN ×3 (15:05→23:30)
--- NOTE | 2018-03-01 15:14 | P.CONS ---
History of Present Illness - Reason for Consult Consult date: 03/01/18 Medical management Requesting physician: Josh Pelayo - History of Present Illness This is an 87-year-old male one of Dr. Dawson and appears medical history significant for hypertension and hypertensive cardio vascular disease, history of kidney stone, TIA, GERD, enlarged prostate, patient was seen in the emergency department at [facility] about the 10 days ago with abdominal pain associated with nausea and vomiting at that time he was diagnosed with cholecystitis and the liver was abnormal suggestive of possible liver cirrhosis patient was seen in the office the 2 days later and he was supposed to see one of the general surgeon in a week however the patient ended up in the emergency department at [facility] on because of increased lethargy and abdominal pain his creatinine was up to 2.0 he was given a prescription for tramadol and he was supposed to follow-up as an outpatient however the patient continued to have significant nausea and vomiting and his creatinine [place] up to 5.1 and his BUN went up to 92 with a mild anemia with hemoglobin of down to 10.6 so he was admitted to the hospital for acute kidney injury due to severe cholecystitis and gastritis and the patient also did have multiple PVCs on the monitor and the patient was treated and discharged home to follow-up the with the general surgery that he was scheduled electively to have laparoscopic cholecystectomy along with liver biopsy which was done today by Dr. Pelayo and the patient was admitted to the hospital as an observation I was asked to come and see the patient for medical management. Review of Systems Constitutional: Reports malaise, Reports weakness, Denies anorexia, Denies chills Eyes: denies blurred vision, denies bulging eye, denies decreased vision Ears: deny: decreased hearing Ears, nose, mouth and throat: Denies dysphagia, Denies neck lump, Denies sore throat Cardiovascular: Reports decreased exercise tolerance, Reports high blood pressure, Denies chest pain, Denies rapid heart beat, Denies shortness of breath , Denies syncope Respiratory: Reports congestion, Reports cough, Reports cough with sputum, Denies home oxygen, Denies sleep apnea, Denies snoring, Denies wheezing Gastrointestinal: Reports abdominal pain, Reports bloating, Reports nausea, Denies heartburn, Denies melena, Denies vomiting Genitourinary: Denies dysuria, Denies polyuria Musculoskeletal: Denies myalgias Musculoskeletal: absent: ankle pain, ankle stiffness, ankle swelling, elbow pain , elbow stiffness, elbow swelling, foot pain, foot stiffness, foot swelling, hand pain, hand stiffness, hand swelling, hip pain, hip stiffness, hip swelling , knee pain, knee stiffness, knee swelling, shoulder pain, shoulder stiffness, shoulder swelling, wrist pain, wrist stiffness, wrist swelling Integumentary: Denies pruritus, Denies rash Neurological: Denies numbness, Denies weakness Psychiatric: Denies anxiety, Denies depression Endocrine: Denies fatigue, Denies weight change Past Medical History Past Medical History: CVA/TIA, GERD/Reflux, Hypertension Additional Past Medical History / Comment(s): TIA 7-8 yrs ago, elevated liver enzymes in past, has been having gall bladder pain., pt was hospitalized at [facility] february 23 - 2017- states he was having burping and hiccups and his kidney tests were elevated (per daughter). History of Any Multi-Drug Resistant Organisms: None Reported Past Surgical History: No Surgical Hx Reported Additional Past Surgical History / Comment(s): colonoscopy, jane cataracts Past Anesthesia/Blood Transfusion Reactions: No Reported Reaction Additional Past Anesthesia/Blood Transfusion Reaction / Comm: NO FAMILY HX KNOWN Past Psychological History: No Psychological Hx Reported Smoking Status: Never smoker Past Alcohol Use History: None Reported Past Drug Use History: None Reported - Past Family History Mother Family Medical History: Unable to Obtain Father Family Medical History: Unable to Obtain Daughter(s) Family Medical History: Diabetes Mellitus (patient has 2 daughters one with diabetes mellitus type 2.) Son(s) Family Medical History: No Reported History (patient has one son no major medical problems.) Medications and Allergies Home Medications Medication Instructions Recorded Confirmed Type amLODIPine BES/OLMESARTAN MED 1 tab PO DAILY@1700 01/15/15 03/01/18 History [Elsa 10-20 mg Tablet] Loratadine 10 mg PO DAILY PRN 12/16/16 03/01/18 History Ondansetron [Zofran ODT] 8 mg PO Q8HR PRN #20 tab 02/19/18 02/28/18 Rx Levofloxacin [Levaquin] 500 mg PO Q48H #5 tab 02/27/18 02/28/18 Rx Metoprolol Tartrate [Lopressor] 25 mg PO DAILY #60 tab 02/27/18 03/01/18 Rx Omeprazole 20 mg PO BID #60 capsule. 02/27/18 03/01/18 Rx Potassium Chloride [Klor-Con 20] 20 meq PO DAILY #3 tab 02/27/18 03/01/18 Rx Tamsulosin [Flomax] 0.4 mg PO PC-SUPPER #30 cap.er.24h 02/27/18 03/01/18 Rx Acetaminophen Tab [Tylenol Tab] 500 mg PO Q6H PRN 02/28/18 02/28/18 History Docusate [Colace] 100 mg PO BID 02/28/18 02/28/18 History Allergies Allergy/AdvReac Type Severity Reaction Status Date / Time temazepam [From Restoril] AdvReac Unknown "Made him Verified 03/01/18 08:48 Loopy" tramadol AdvReac Unknown Unknown- Verified 03/01/18 08:48 Daughter does not want him to have. Physical Exam Vitals: Vital Signs Temp Pulse Resp BP Pulse Ox 03/01/18 13:50 74 115/57 94 L 03/01/18 13:35 78 123/61 94 L 03/01/18 13:20 75 115/55 92 L 03/01/18 13:17 76 16 03/01/18 13:05 97.5 F L 75 18 124/62 92 L 03/01/18 12:15 76 16 106/56 99 03/01/18 12:00 60 16 104/57 97 03/01/18 11:46 96.8 F L 68 16 120/64 99 03/01/18 08:49 97.3 F L 71 16 137/78 97 Intake and Output 03/01/18 03/01/18 03/01/18 06:59 14:59 22:59 Intake Total 1200 Output Total 57 Balance 1143 Intake: IV 1200 Output: Estimated Blood Loss 57 Other: Voiding Method Incontinent Weight 77.111 kg - Constitutional General appearance: average body habitus, mild distress - EENT Eyes: anicteric sclerae, EOMI, PERRLA, no ptosis, no scleral icterus, normal appearance ENT: hearing grossly normal, NA/AT, normal oropharynx, no thrush Ears: bilateral: normal - Neck Neck: no lymphadenopathy, normal ROM, no rigidity, no stridor, no thyromegaly Carotids: bilateral: upstroke normal Thyroid: bilateral: normal size - Respiratory Respiratory: bilateral: diminished, negative: dullness, rales, rhonchi, wheezing , prolonged expiration, prolonged inspiration - Cardiovascular Rhythm: regular Heart sounds: normal: S1, S2 Abnormal Heart Sounds: systolic murmur, no S3 Gallop, no S4 Gallop - Gastrointestinal General gastrointestinal: normal bowel sounds, soft, tenderness (right upper quadrant with a MARY JO drain in place.) - Integumentary Integumentary: normal, normal turgor - Musculoskeletal Musculoskeletal: generalized weakness, strength equal bilaterally - Psychiatric Psychiatric: A&O x's 3, appropriate affect, intact judgment & insight Assessment and Plan Assessment: Assessment and plan: 1. Acute cholecystitis status post laparoscopic cholecystectomy along with liver biopsy due to possible cirrhosis. Patient was instructed to use the incentive spirometer to reduce the incidence of atelectasis and hospital- acquired pneumonia, continue current pain management as outlined by general surgery, start the patient on clear liquid diet advance as tolerated per general surgery. Continue Levaquin 500 mg orally every 48 hours. 2. Acute kidney injury secondary to poor oral intake of fluid has resolved. Repeat CMP tomorrow morning. 3. Hypertension and hypertensive cardiovascular disease. Continue patient on metoprolol 25 mg orally once every day, losartan 100 mg orally once every day, and amlodipine 10 mg orally once every day. 4. Severe GERD. Continue patient on Protonix 40 mg orally once every day. 5. History of UTI. Resolved. 6. DVT prophylaxis. Continue heparin 5000 units subcutaneously every 12 hours. 7. GI prophylaxis. Continue PPI. 8. BPH . Continue Flomax 0.4 mg orally once every day, monitor for urinary retention. 9. Cardiac arrhythmia. In the form of PVCs. Continue metoprolol 25 mg orally once every day. 10. Thank you Dr. Pelayo for the consult we'll follow the patient with you.
[2018-03-01] MEDS ORDERED: amLODIPine 10 MG TAB PO SCH (17:00)
[2018-03-01] MEDS ORDERED: LOSARTAN 50 MG TAB PO SCH (17:00)
[2018-03-01] MEDS: HEPARIN SODIUM,PORCINE 5,000 UNIT/ML 1 ML VIAL SQ SCH (17:14)
[2018-03-01] MEDS ORDERED: TAMSULOSIN 0.4 MG CAP.ER.24H PO SCH (18:30)
[2018-03-01] MEDS: DOCUSATE 100 MG CAP PO SCH (20:13)
[2018-03-01] MEDS ORDERED: MELATONIN 5 MG TABLET PO SCH (21:00)
[2018-03-02] MEDS ORDERED: HYDROcodone/APAP 5-325MG 1 EACH TAB ONE (05:04)
[2018-03-02] MEDS ORDERED: HEPARIN SODIUM,PORCINE 5,000 UNIT/ML 1 ML VIAL ONE (05:04)
[2018-03-02] MEDS ORDERED: MORPHINE SULFATE 2 MG/ML SYRINGE ONE (05:04)
[2018-03-02] MEDS: HEPARIN SODIUM,PORCINE 5,000 UNIT/ML 1 ML VIAL SQ SCH ×2 (07:03→09:25)
[2018-03-02] MEDS ORDERED: PANTOPRAZOLE 40 MG TABLET PO SCH (07:30)
[2018-03-02 07:31] LABS: Basophils % (A) 0 %; Eosinophils # (A) 0.1 k/uL (0-0.7); Eosinophils % (A) 1 %; HCT 31.3 % (39.0-53.0); HGB 10.2 gm/dL (13.0-17.5); Lymphocytes # (A) 1.8 k/uL (1.0-4.8); Lymphocytes % (A) 20 %; MCHC 32.6 g/dL (31.0-37.0); Mean Platelet Volume 6.8; Monocytes # (A) 0.4 k/uL (0-1.0); Monocytes % (A) 4 %; Neutrophils # (A) 6.8 k/uL (1.3-7.7); Neutrophils % (A) 74 %; Platelet Count 320 k/uL (150-450); RBC 3.51 m/uL (4.30-5.90); WBC 9.1 k/uL (3.8-10.6)
[2018-03-02 07:48] LABS: Albumin 2.7 g/dL (3.5-5.0); Calcium 7.8 mg/dL (8.4-10.2); Magnesium 1.3 mg/dL (1.6-2.3); Phosphorus 3.5 mg/dL (2.5-4.5); Potassium 3.8 mmol/L (3.5-5.1); Total Bilirubin 0.5 mg/dL (0.2-1.3); Total Protein 5.1 g/dL (6.3-8.2)
[2018-03-02] MEDS ORDERED: Magnesium Replacement Protocol 1 EACH MISC MISCELLANE PRN (08:29)
[2018-03-02 08:31] VITALS: BP 131/66; PULSE 78; RESP 18; TEMP 98.4
[2018-03-02] MEDS ORDERED: POTASSIUM CHLORIDE ER 20 MEQ TAB.ER PO SCH (09:00)
[2018-03-02] MEDS ORDERED: LEVOFLOXACIN 500 MG TAB PO SCH (09:00)
[2018-03-02] MEDS ORDERED: METOPROLOL TARTRATE 25 MG TAB PO SCH (09:00)
[2018-03-02] MEDS ORDERED: MORPHINE ORAL SOLN 10 MG/5 ML CUP PO PRN (09:18)
[2018-03-02] MEDS: LACTATED RINGERS 1,000 ML IV SCH (09:18)
[2018-03-02] MEDS: DOCUSATE 100 MG CAP PO SCH (09:25)
[2018-03-02] MEDS: MAGNESIUM SULFATE-D5W PMX 1 GM in DEXTROSE/WATER 1 100ML.BAG IVPB SCH ×3 (09:25→11:51)
--- NOTE | 2018-03-02 13:11 | P.PN ---
Subjective Progress Note Date: 03/02/18 This is an 87-year-old male one of Dr. Dawson and appears medical history significant for hypertension and hypertensive cardio vascular disease, history of kidney stone, TIA, GERD, enlarged prostate, patient was seen in the emergency department at [facility] about the 10 days ago with abdominal pain associated with nausea and vomiting at that time he was diagnosed with cholecystitis and the liver was abnormal suggestive of possible liver cirrhosis patient was seen in the office the 2 days later and he was supposed to see one of the general surgeon in a week however the patient ended up in the emergency department at [facility] on because of increased lethargy and abdominal pain his creatinine was up to 2.0 he was given a prescription for tramadol and he was supposed to follow-up as an outpatient however the patient continued to have significant nausea and vomiting and his creatinine [place] up to 5.1 and his BUN went up to 92 with a mild anemia with hemoglobin of down to 10.6 so he was admitted to the hospital for acute kidney injury due to severe cholecystitis and gastritis and the patient also did have multiple PVCs on the monitor and the patient was treated and discharged home to follow-up the with the general surgery that he was scheduled electively to have laparoscopic cholecystectomy along with liver biopsy which was done today by Dr. Pelayo and the patient was admitted to the hospital as an observation I was asked to come and see the patient for medical management. 03/02: Patient has been afebrile, vital signs stable. Pulse ox 93% on room air. Creatinine is 0.88. Alkaline phosphatase 149, AST 88. Magnesium is 1.3 and will be replaced. Patient has been cleared by Dr. Pelayo for discharge. Patient will be leaving after magnesium is replaced. Patient states his pain is much improved today. He does have some discomfort when he tries to sit up and strains his abdomen. He is passing some gas. No bowel movement. Objective - Vital Signs Vital signs: Vital Signs Temp 98.6 F 03/01/18 23:40 Pulse 76 03/02/18 00:00 Resp 16 03/02/18 00:00 BP 133/74 03/01/18 23:40 Pulse Ox 93 L 03/01/18 23:40 Intake & Output 03/01/18 03/02/18 03/02/18 18:59 06:59 18:59 Intake Total 1200 300 Output Total 92 400 30 Balance 1108 -100 -30 Weight 77.111 kg Intake: IV 1200 Oral 300 Output: Drainage 35 30 Left Abdomen 35 30 Urine 400 Estimated Blood Loss 57 Other: Voiding Method Toilet Toilet # Voids 1 4 - Exam General appearance: average body habitus, mild distress - EENT Eyes: anicteric sclerae, EOMI, PERRLA, no ptosis, no scleral icterus, normal appearance ENT: hearing grossly normal, NA/AT, normal oropharynx, no thrush Ears: bilateral: normal - Neck Neck: no lymphadenopathy, normal ROM, no rigidity, no stridor, no thyromegaly Carotids: bilateral: upstroke normal Thyroid: bilateral: normal size - Respiratory Respiratory: bilateral: diminished, negative: dullness, rales, rhonchi, wheezing , prolonged expiration, prolonged inspiration - Cardiovascular Rhythm: regular Heart sounds: normal: S1, S2 Abnormal Heart Sounds: systolic murmur, no S3 Gallop, no S4 Gallop - Gastrointestinal General gastrointestinal: normal bowel sounds, soft, tenderness (right upper quadrant with a MARY JO drain in place.) - Integumentary Integumentary: normal, normal turgor - Musculoskeletal Musculoskeletal: generalized weakness, strength equal bilaterally - Psychiatric Psychiatric: A&O x's 3, appropriate affect, intact judgment & insight - Labs CBC & Chem 7: 03/02/18 06:18 03/02/18 06:18 Labs: Abnormal Lab Results - Last 24 Hours (Table) 03/02/18 03/02/18 Range/Units 06:18 06:18 RBC 3.51 L (4.30-5.90) m/uL Hgb 10.2 L (13.0-17.5) gm/dL Hct 31.3 L (39.0-53.0) % Sodium 135 L (137-145) mmol/L Calcium 7.8 L (8.4-10.2) mg/dL Magnesium 1.3 L (1.6-2.3) mg/dL AST 88 H (17-59) U/L Alkaline Phosphatase 149 H (38-126) U/L Total Protein 5.1 L (6.3-8.2) g/dL Albumin 2.7 L (3.5-5.0) g/dL Assessment and Plan Plan: 1. Acute cholecystitis status post laparoscopic cholecystectomy along with liver biopsy due to possible cirrhosis. Patient was instructed to use the incentive spirometer to reduce the incidence of atelectasis and hospital- acquired pneumonia, continue current pain management as outlined by general surgery, start the patient on clear liquid diet advance as tolerated per general surgery. Continue Levaquin 500 mg orally every 48 hours. 2. Acute kidney injury secondary to poor oral intake of fluid has resolved. Repeat CMP tomorrow morning. 3. Hypertension and hypertensive cardiovascular disease. Continue patient on metoprolol 25 mg orally once every day, losartan 100 mg orally once every day, and amlodipine 10 mg orally once every day. 4. Severe GERD. Continue patient on Protonix 40 mg orally once every day. 5. History of UTI. Resolved. 6. DVT prophylaxis. Continue heparin 5000 units subcutaneously every 12 hours. 7. GI prophylaxis. Continue PPI. 8. BPH . Continue Flomax 0.4 mg orally once every day, monitor for urinary retention. 9. Cardiac arrhythmia. In the form of PVCs. Continue metoprolol 25 mg orally once every day. 10. Hypomagnesemia, replacement. Discharge plan: home Impression and plan of care have been directed as dictated by the signing physician. Sarah Damon nurse practitioner acting as scribe for signing physician.
--- NOTE | 2018-03-02 14:40 | P.DS ---
Providers Date of admission: 03/02/18 06:55 Expected date of discharge: 03/02/18 Attending physician: Josh Rodríguez DO Consults: 03/01/18 12:48 Consult Physician Routine Consulting Provider: Rivas Dawson Reason/Comments: med mgmt, s/p cholecystectomy Do you want consulting provider notified?: Yes Primary care physician: Stated None Hospital Course: 87-year-old male presented to be evaluated for right upper quadrant pain which was consistent acute cholecystitis. Patient was seen in the emergency room 10 days prior at [facility] that emergency room visit patient was being evaluated for abdominal pain was experiencing nausea vomiting. Patient was diagnosed at that time with cholecystitis. The liver enzymes were also noted to be elevated suggestive possible liver cirrhosis. Patient was to be seen in the office 2 days later. He was supposed to follow-up with the general surgeon in a week. However in the interim patient presented to the emergency room at [facility] because of increased abdominal pain creatinine was 2. Patient was given a prescription for tramadol and was supposed to follow-up in the outpatient setting. Patient stated that he continue to have significant nausea vomiting patient was seen by Dr. Rodríguez and did undergo cholecystectomy with liver biopsies due to possible cirrhosis for acute cholecystitis on March 01. Patient was felt to be hemodynamically stable and appropriate to proceed with a discharge home. The MARY JO drain was removed prior to discharge by Dr. rodríguez Impression discharge diagnosis Present on admission abdominal pain suspect due to acute cholecystitis Status post laparoscopic cholecystectomy with liver biopsies due to possible cirrhosis Severe esophageal reflux disease Hypertension essential Hypertensive cardiovascular disease Acute kidney injury secondary to poor oral intake of fluid resolved Hypo-magnesium corrected resolved BPH on Flomax for urinary retention Cardiac arrhythmias in the form of PVCs resolved The above impression and plan of care have been discussed and directed by signing physician. Sherrill Frye nurse practitioner acting as scribe for signing physician. Plan - Discharge Summary Discharge Rx Participant: Yes New Discharge Prescriptions: New HYDROcodone/APAP 5-325MG [[place] 5-325] 1 each PO Q6HR PRN #12 tab PRN Reason: Mild Pain Continue amLODIPine BES/OLMESARTAN MED [Elsa 10-20 mg Tablet] 1 tab PO DAILY@1700 Loratadine 10 mg PO DAILY PRN PRN Reason: Allergy Symptoms Ondansetron [Zofran ODT] 8 mg PO Q8HR PRN #20 tab PRN Reason: Nausea Levofloxacin [Levaquin] 500 mg PO Q48H #5 tab Metoprolol Tartrate [Lopressor] 25 mg PO DAILY #60 tab Tamsulosin [Flomax] 0.4 mg PO PC-SUPPER #30 cap.er.24h Omeprazole 20 mg PO BID #60 capsule. Potassium Chloride [Klor-Con 20] 20 meq PO DAILY #3 tab Acetaminophen Tab [Tylenol] 500 mg PO Q6H PRN PRN Reason: Pain Docusate [Colace] 100 mg PO BID Discharge Medication List amLODIPine BES/OLMESARTAN MED [Elsa 10-20 mg Tablet] 1 tab PO DAILY@1700 [History] Loratadine 10 mg PO DAILY PRN 12/16/16 [History] Ondansetron [Zofran ODT] 8 mg PO Q8HR PRN #20 tab 02/19/18 [Rx] Levofloxacin [Levaquin] 500 mg PO Q48H #5 tab 02/27/18 [Rx] Metoprolol Tartrate [Lopressor] 25 mg PO DAILY #60 tab 02/27/18 [Rx] Omeprazole 20 mg PO BID #60 capsule. 02/27/18 [Rx] Potassium Chloride [Klor-Con 20] 20 meq PO DAILY #3 tab 02/27/18 [Rx] Tamsulosin [Flomax] 0.4 mg PO PC-SUPPER #30 cap.er.24h 02/27/18 [Rx] Acetaminophen Tab [Tylenol] 500 mg PO Q6H PRN 02/28/18 [History] Docusate [Colace] 100 mg PO BID 02/28/18 [History] HYDROcodone/APAP 5-325MG [[place] 5-325] 1 each PO Q6HR PRN #12 tab 03/02/18 [Rx] Follow up Appointment(s)/Referral(s): Rivas Dawson MD [Medical Doctor] - 1 Week Josh Rodríguez DO [Doctor of Osteopathic Medicine] - 1 Week Activity/Diet/Wound Care/Special Instructions: No tub bath for six weeks. Shower daily. No lifting over 10 pounds for the next 6 weeks. Do not remove the plastic dressings from surgical site until seen in follow-up visit with Dr. Rodríguez May use ice packs to surgical site. No driving while taking narcotic for pain. Discharge Disposition: HOME SELF-CARE
== END 2018-03-02 15:40 | disposition home or self-care (01) ==
LOC: OR 08:31 → 3OBS 11:33 → OR 03-02 06:55
PROVIDERS: ADMIT Surgery; ATTEND Surgery
DX: K80.00 Calculus of gallbladder with acute cholecystitis without obstruction (principal); K74.60 Unspecified cirrhosis of liver; N17.9 Acute kidney failure, unspecified; E83.42 Hypomagnesemia; I11.9 Hypertensive heart disease without heart failure; I49.3 Ventricular premature depolarization; N40.1 Benign prostatic hyperplasia with lower urinary tract symptoms; K21.9 Gastro-esophageal reflux disease without esophagitis; Z79.899 Other long term (current) drug therapy; Z88.5 Allergy status to narcotic agent; Z88.8 Allergy status to other drugs, medicaments and biological substances; Z87.440 Personal history of urinary (tract) infections; Z87.442 Personal history of urinary calculi; Z86.73 Personal history of transient ischemic attack (TIA), and cerebral infarction without residual deficits; Z83.3 Family history of diabetes mellitus
CPT/HCPCS: 88304; 80053; 83735; 84100; 85025; 88313; 88307; 47562; 47379; G0378; J1200; J1644 ×2; J2710; J3480; J2001; J3010; J2270 ×2; J1170 ×2; J3475; J0330; J2704; J0690

== ENCOUNTER 2018-03-08 07:55 | Emergency (ER) | payer BC ==
[2018-03-08] MEDS ORDERED: NITROGLYCERIN OINT 1 INCH/GM PACKET TOPICAL STA (08:35)
[2018-03-08] MEDS ORDERED: ASPIRIN 81 MG PO STA (08:35)
[2018-03-08] MEDS ORDERED: FUROSEMIDE 10 MG/ML 4 ML VIAL IV STA (08:36)
--- NOTE | 2018-03-08 08:44 | ED ---
General Adult HPI - General Chief complaint: Chest Pain Stated complaint: Chest pressure Time Seen by Provider: 03/08/18 08:00 Source: patient, RN notes reviewed Mode of arrival: wheelchair Limitations: no limitations - History of Present Illness Initial comments: This is an 87-year-old male who presents emergency Department complaining of chest pain and upper abdominal pain. Patient states she had a cholecystectomy last Tuesday. Patient states he woke up last night with chest pain which felt like a pressure radiated to his back. Patient denies any shortness of breath. Patient denies any diaphoresis. Patient denies nausea vomiting. Patient states he now has pressure in the epigastric area and he thinks he might just be constipated. Patient states the chest pressure seems to subside at this point time. Patient states that lasted approximately one half an hour prior to his arrival. Patient denies any lightheadedness or dizziness patient denies any near syncopal episode. Patient denies any calf pain has significant bilateral swelling and he states he was supposed to start his Lasix today but has not yet. - Related Data Home Medications Medication Instructions Recorded Confirmed amLODIPine BES/OLMESARTAN MED 1 tab PO DAILY@1700 01/15/15 03/08/18 [Elsa 10-20 mg Tablet] Loratadine 10 mg PO DAILY PRN 12/16/16 03/08/18 Acetaminophen [Tylenol] 650 mg PO Q4H PRN 03/08/18 03/08/18 Furosemide [Lasix] 20 mg PO Q48H 03/08/18 03/08/18 Levofloxacin [Levaquin] 500 mg PO DAILY 03/08/18 03/08/18 Previous Rx's Medication Instructions Recorded Ondansetron [Zofran ODT] 8 mg PO Q8HR PRN #20 tab 02/19/18 Metoprolol Tartrate [Lopressor] 25 mg PO DAILY #60 tab 02/27/18 Omeprazole 20 mg PO BID #60 bradley. 02/27/18 Tamsulosin [Flomax] 0.4 mg PO PC-SUPPER #30 cap.er.24h 02/27/18 HYDROcodone/APAP 5-325MG [[place] 1 each PO Q6HR PRN #12 tab 03/02/18 5-325] Allergies Allergy/AdvReac Type Severity Reaction Status Date / Time temazepam [From Restoril] AdvReac Unknown "Made him Verified 03/08/18 09:15 Loopy" tramadol AdvReac Unknown Unknown- Verified 03/08/18 09:15 Daughter does not want him to have. Review of Systems ROS Statement: Those systems with pertinent positive or pertinent negative responses have been documented in the HPI. ROS Other: All systems not noted in ROS Statement are negative. Past Medical History Past Medical History: CVA/TIA, GERD/Reflux, Hypertension Additional Past Medical History / Comment(s): HX RENAL CALCULUS, TIA 7-8 yrs ago-, "sluggy gall bladder", elevated liver enzymes in past, History of Any Multi-Drug Resistant Organisms: None Reported Past Surgical History: No Surgical Hx Reported, Cholecystectomy Additional Past Surgical History / Comment(s): colonoscopy, jane cataracts Past Anesthesia/Blood Transfusion Reactions: No Reported Reaction Additional Past Anesthesia/Blood Transfusion Reaction / Comment(s): NO FAMILY HX KNOWN Past Psychological History: No Psychological Hx Reported Smoking Status: Never smoker Past Alcohol Use History: None Reported Past Drug Use History: None Reported - Past Family History Mother Family Medical History: Unable to Obtain Father Family Medical History: Unable to Obtain Daughter(s) Family Medical History: Diabetes Mellitus (patient has 2 daughters one with diabetes mellitus type 2.) Son(s) Family Medical History: No Reported History (patient has one son no major medical problems.) General Exam - General Exam Comments Initial Comments: GENERAL: Patient is well-developed and well-nourished. Patient is nontoxic and well- hydrated and is in mild distress. ENT: Neck is soft and supple. No significant lymphadenopathy is noted. Oropharynx is clear. Moist mucous membranes. Neck has full range of motion without eliciting any pain. EYES: The sclera were anicteric and conjunctiva were pink and moist. Extraocular movements were intact and pupils were equal round and reactive to light. Eyelids were unremarkable. PULMONARY: Unlabored respirations. Good breath sounds bilaterally. No audible rales rhonchi or wheezing was noted. CARDIOVASCULAR: There is a regular rate and rhythm without any murmurs gallops or rubs. ABDOMEN: Soft and nontender with normal bowel sounds. No palpable organomegaly was noted. There is no palpable pulsatile mass. SKIN: Skin is clear with no lesions or rashes and otherwise unremarkable. NEUROLOGIC: Patient is alert and oriented x3. Cranial nerves II through XII are grossly intact. Motor and sensory are also intact. Normal speech, volume and content. Symmetrical smile. MUSCULOSKELETAL: Normal extremities with adequate strength and full range of motion. No lower extremity swelling or edema. No calf tenderness. LYMPHATICS: No significant lymphadenopathy is noted PSYCHIATRIC: Normal psychiatric evaluation. Normal interpersonal interactions appears functionally intact in deals appropriately with others. No signs of depression. No signs of anxiety. Limitations: no limitations Course Vital Signs 03/08/18 03/08/18 03/08/18 08:00 09:03 10:20 Temperature 98.3 F 98.0 F Pulse Rate 70 91 92 Respiratory 18 18 16 Rate Blood Pressure 117/78 135/71 91/64 O2 Sat by Pulse 96 100 94 L Oximetry 03/08/18 10:44 Temperature Pulse Rate 60 Respiratory 18 Rate Blood Pressure 82/66 O2 Sat by Pulse 94 L Oximetry Medical Decision Making - Medical Decision Making EKG shows normal sinus rhythm at 87 bpm GA interval 260 QRS is 84 QT interval 370 QTC is 454. Patient's EKG shows no ST segment elevation or depression or T wave abnormalities are noted. Patient had a KUB and chest x-ray which showed no acute abnormality. Patient large bowel movement while in the emergency department and it seemed to reduce all of his abdominal pain. Patient states she hasn't had any chest pain since she's been here. I recommended that the patient stay he insisted with his 2 daughters and in the room that he wanted to go home and that he would sign out AGAINST MEDICAL ADVICE. I again reiterated that he should stay but again he decided to sign out AGAINST MEDICAL ADVICE knowing the risks - Lab Data Result diagrams: 03/08/18 09:00 03/08/18 08:40 Lab Results 03/08/18 03/08/18 03/08/18 Range/Units 08:40 09:00 09:00 WBC 9.0 (3.8-10.6) k/uL RBC 4.07 L (4.30-5.90) m/uL Hgb 12.0 L (13.0-17.5) gm/dL Hct 36.3 L (39.0-53.0) % MCV 89.2 (80.0-100.0) fL MCH 29.4 (25.0-35.0) pg MCHC 33.0 (31.0-37.0) g/dL RDW 13.7 (11.5-15.5) % Plt Count 552 H (150-450) k/uL Neutrophils % 74 % Lymphocytes % 18 % Monocytes % 5 % Eosinophils % 1 % Basophils % 0 % Neutrophils # 6.7 (1.3-7.7) k/uL Lymphocytes # 1.6 (1.0-4.8) k/uL Monocytes # 0.5 (0-1.0) k/uL Eosinophils # 0.1 (0-0.7) k/uL Basophils # 0.0 (0-0.2) k/uL PT 11.4 (9.0-12.0) sec INR 1.2 H (<1.2) APTT 26.5 (22.0-30.0) sec Sodium 139 (137-145) mmol/L Potassium 5.0 (3.5-5.1) mmol/L Chloride 102 (98-107) mmol/L Carbon Dioxide 22 (22-30) mmol/L Anion Gap 15 mmol/L BUN 17 (9-20) mg/dL Creatinine 0.90 (0.66-1.25) mg/dL Est GFR (CKD-EPI)AfAm 88 (>60 ml/min/1.73 sqM) Est GFR (CKD-EPI)NonAf 77 (>60 ml/min/1.73 sqM) Glucose 113 H (74-99) mg/dL Calcium 9.2 (8.4-10.2) mg/dL Magnesium (1.6-2.3) mg/dL Total Bilirubin 0.8 (0.2-1.3) mg/dL AST 46 (17-59) U/L ALT 44 (21-72) U/L Alkaline Phosphatase 194 H (38-126) U/L Total Creatine Kinase (55-170) U/L CK-MB (CK-2) (0.0-2.4) ng/mL CK-MB (CK-2) Rel Index Troponin I (0.000-0.034) ng/mL Total Protein 7.0 (6.3-8.2) g/dL Albumin 3.7 (3.5-5.0) g/dL Amylase (30-110) U/L Lipase (23-300) U/L 03/08/18 03/08/18 Range/Units 09:00 09:00 WBC (3.8-10.6) k/uL RBC (4.30-5.90) m/uL Hgb (13.0-17.5) gm/dL Hct (39.0-53.0) % MCV (80.0-100.0) fL MCH (25.0-35.0) pg MCHC (31.0-37.0) g/dL RDW (11.5-15.5) % Plt Count (150-450) k/uL Neutrophils % % Lymphocytes % % Monocytes % % Eosinophils % % Basophils % % Neutrophils # (1.3-7.7) k/uL Lymphocytes # (1.0-4.8) k/uL Monocytes # (0-1.0) k/uL Eosinophils # (0-0.7) k/uL Basophils # (0-0.2) k/uL PT (9.0-12.0) sec INR (<1.2) APTT (22.0-30.0) sec Sodium (137-145) mmol/L Potassium (3.5-5.1) mmol/L Chloride (98-107) mmol/L Carbon Dioxide (22-30) mmol/L Anion Gap mmol/L BUN (9-20) mg/dL Creatinine (0.66-1.25) mg/dL Est GFR (CKD-EPI)AfAm (>60 ml/min/1.73 sqM) Est GFR (CKD-EPI)NonAf (>60 ml/min/1.73 sqM) Glucose (74-99) mg/dL Calcium (8.4-10.2) mg/dL Magnesium 1.6 (1.6-2.3) mg/dL Total Bilirubin (0.2-1.3) mg/dL AST (17-59) U/L ALT (21-72) U/L Alkaline Phosphatase (38-126) U/L Total Creatine Kinase 91 (55-170) U/L CK-MB (CK-2) 1.9 (0.0-2.4) ng/mL CK-MB (CK-2) Rel Index 2.1 Troponin I 0.026 (0.000-0.034) ng/mL Total Protein (6.3-8.2) g/dL Albumin (3.5-5.0) g/dL Amylase 88 (30-110) U/L Lipase 267 (23-300) U/L Disposition Clinical Impression: Unstable angina pectoris Disposition: Left Against Medical Advice Instructions: Chest Pain (ED) Referrals: Rivas Dawson MD [Primary Care Provider] - 1-2 days Time of Disposition: 10:32
[2018-03-08 09:04] VITALS: TEMP 98
[2018-03-08 09:07] LABS: Albumin 3.7 g/dL (3.5-5.0); Calcium 9.2 mg/dL (8.4-10.2); Total Bilirubin 0.8 mg/dL (0.2-1.3)
--- NOTE | 2018-03-08 09:27 | XR ---
EXAMINATION TYPE: XR chest 2V DATE OF EXAM: 03/08/2018 COMPARISON: 12/16/2016 HISTORY: Shortness of breath TECHNIQUE: Frontal and lateral views of the chest are obtained. FINDINGS: Scattered senescent parenchymal changes noted. Hyperinflation compatible with COPD. No evidence for infiltrate. No evidence for atelectasis. Heart size is stable. Mediastinal structures are stable and grossly unremarkable. No evidence for hilar prominence. Degenerative changes dorsal spine. IMPRESSION: 1. No evidence for acute pulmonary disease.
--- NOTE | 2018-03-08 09:28 | XR ---
EXAMINATION TYPE: XR KUB DATE OF EXAM: 03/08/2018 COMPARISON: 02/19/2018 HISTORY: Pain TECHNIQUE: Single supine KUB image of the abdomen is obtained FINDINGS: Small bowel demonstrates no evidence for dilatation or air fluid levels. Gas and fecal material is seen in non-distended colon. No convincing evidence for pneumoperitoneum. No unusual calcifications. The lung bases are clear. The osseous structures are intact. IMPRESSION: 1. Overall nonobstructive bowel gas pattern.
[2018-03-08 09:32] LABS: Basophils % (A) 0 %; Eosinophils # (A) 0.1 k/uL (0-0.7); Eosinophils % (A) 1 %; HCT 36.3 % (39.0-53.0); Lymphocytes # (A) 1.6 k/uL (1.0-4.8); Lymphocytes % (A) 18 %; MCH 29.4 pg (25.0-35.0); MCV 89.2 fL (80.0-100.0); Mean Platelet Volume 6.4; Monocytes # (A) 0.5 k/uL (0-1.0); Monocytes % (A) 5 %; Neutrophils # (A) 6.7 k/uL (1.3-7.7); Neutrophils % (A) 74 %; Platelet Count 552 k/uL (150-450); RBC 4.07 m/uL (4.30-5.90); RDW 13.7 % (11.5-15.5)
[2018-03-08 09:40] LABS: INR 1.2 (<1.2); Partial Thromboplastin Time 26.5 sec (22.0-30.0); Prothrombin Time 11.4 sec (9.0-12.0)
[2018-03-08 09:44] LABS: Magnesium 1.6 mg/dL (1.6-2.3)
[2018-03-08 10:15] LABS: Creatine Kinase MB 1.9 ng/mL (0.0-2.4); Troponin I 0.026 ng/mL (0.000-0.034)
[2018-03-08 11:21] VITALS: BP 108/68; PULSE 98; RESP 16
== END 2018-03-08 11:30 | disposition left against medical advice (07) ==
LOC: EC 07:55
DX: I20.0 Unstable angina (principal); R10.13 Epigastric pain; M79.89 Other specified soft tissue disorders; I10 Essential (primary) hypertension; Z79.899 Other long term (current) drug therapy; Z88.5 Allergy status to narcotic agent; Z88.8 Allergy status to other drugs, medicaments and biological substances; Z90.49 Acquired absence of other specified parts of digestive tract
CPT/HCPCS: 36415; 93005; 80053; 82150; 82550; 82553; 83690; 83735; 84484; 85025; 85610; 85730; 71046; 74018; 99285; 96374; J1940

== ENCOUNTER 2018-03-16 18:52 | Emergency (ER) | payer MEDICARE, BC ==
[2018-03-16 20:48] VITALS: BP 130/85; PULSE 83; RESP 18; TEMP 98.8
--- NOTE | 2018-03-16 20:52 | ED ---
Recheck HPI - General Chief Complaint: Recheck/Abnormal Lab/Rx Stated Complaint: incision site problem Time Seen by Provider: 03/16/18 20:26 Source: patient, RN notes reviewed, old records reviewed Mode of arrival: ambulatory Limitations: no limitations - History of Present Illness Initial Comments: Patient is a pleasant 87 year old male with history of recent cholecystectomy. Patient reports today he was wearing new pants and the lining was irritating his incision site. HE presents with and daughter whom are concerned for infection. No fevers, chills. He saw his surgeon this week and was cleared to start to drive as well as his PCP. His recent lab work this week was well. Patient reports that the linigng of the pants was elastic. - Related Data Home Medications Medication Instructions Recorded Confirmed amLODIPine BES/OLMESARTAN MED 1 tab PO DAILY@1700 01/15/15 03/16/18 [Elsa 10-20 mg Tablet] Loratadine 10 mg PO DAILY PRN 12/16/16 03/16/18 Furosemide [Lasix] 20 mg PO Q48H 03/08/18 03/16/18 Docusate [Colace] 100 mg PO BID 03/16/18 03/16/18 Tamsulosin [Flomax] 0.4 mg PO HS 03/16/18 03/16/18 Previous Rx's Medication Instructions Recorded Metoprolol Tartrate [Lopressor] 25 mg PO DAILY #60 tab 02/27/18 Cephalexin [Keflex] 500 mg PO Q8HR #21 cap 03/16/18 Mupirocin [Mupirocin 2%] 1 applic TOPICAL TID #60 gm 03/16/18 Allergies Allergy/AdvReac Type Severity Reaction Status Date / Time temazepam [From Restoril] AdvReac Unknown "Made him Verified 03/16/18 20:38 Loopy" tramadol AdvReac Unknown Unknown- Verified 03/16/18 20:38 Daughter does not want him to have. Review of Systems ROS Statement: Those systems with pertinent positive or pertinent negative responses have been documented in the HPI. ROS Other: All systems not noted in ROS Statement are negative. Past Medical History Past Medical History: CVA/TIA, GERD/Reflux, Hypertension Additional Past Medical History / Comment(s): HX RENAL CALCULUS, TIA 7-8 yrs ago-, "sluggy gall bladder", elevated liver enzymes in past, History of Any Multi-Drug Resistant Organisms: None Reported Past Surgical History: No Surgical Hx Reported, Cholecystectomy Additional Past Surgical History / Comment(s): colonoscopy, jane cataracts Past Anesthesia/Blood Transfusion Reactions: No Reported Reaction Additional Past Anesthesia/Blood Transfusion Reaction / Comment(s): NO FAMILY HX KNOWN Past Psychological History: No Psychological Hx Reported Smoking Status: Never smoker Past Alcohol Use History: None Reported Past Drug Use History: None Reported - Past Family History Mother Family Medical History: Unable to Obtain Father Family Medical History: Unable to Obtain Daughter(s) Family Medical History: Diabetes Mellitus (patient has 2 daughters one with diabetes mellitus type 2.) Son(s) Family Medical History: No Reported History (patient has one son no major medical problems.) General Exam - General Exam Comments Initial Comments: Well appearing 87 year old male, no distress. Limitations: no limitations General appearance: alert, in no apparent distress Head exam: Present: atraumatic, normocephalic, normal inspection Eye exam: Present: normal appearance, PERRL, EOMI. Absent: scleral icterus, conjunctival injection, periorbital swelling ENT exam: Present: normal exam, mucous membranes moist Neck exam: Present: normal inspection. Absent: tenderness, meningismus, lymphadenopathy Respiratory exam: Present: normal lung sounds bilaterally. Absent: respiratory distress, wheezes, rales, rhonchi, stridor Cardiovascular Exam: Present: regular rate, normal rhythm, normal heart sounds. Absent: systolic murmur, diastolic murmur, rubs, gallop, clicks GI/Abdominal exam: Present: soft, normal bowel sounds, other (3cm of area of erythema over mid incisoin site. No streaking. This is at area where pants rub. ). Absent: distended, tenderness, guarding, rebound, rigid Extremities exam: Present: normal inspection, full ROM, normal capillary refill. Absent: tenderness, pedal edema, joint swelling, calf tenderness Back exam: Present: normal inspection Neurological exam: Present: alert, oriented X3, CN II-XII intact Psychiatric exam: Present: normal affect, normal mood Course Vital Signs 03/16/18 03/16/18 18:56 20:47 Temperature 98.2 F 98.8 F Pulse Rate 70 83 Respiratory 20 18 Rate Blood Pressure 143/67 130/85 O2 Sat by Pulse 99 97 Oximetry Medical Decision Making - Medical Decision Making This patient is an 87 year old male with irritation over incision site from recent lap ava procedure. He wore new pants that irritated the skin. Denies pain at the site. No palpable abscess. Patient family concerned for infection. I bhavana a line around the site. Discussed if this area worsens to return to ED, but will put patient on keflex and antibiotic cream and bandage over the site and they can follow up with PCP. Starting antibiotic as a precaution. Family agrees and he will not be wearing those pants anymore. Disposition Clinical Impression: Surgical site reaction Disposition: HOME SELF-CARE Condition: Good Instructions: Surgical Site Infections (ED) Additional Instructions: Patient advised follow-up with primary care provider and surgeon. Monitor for any redness spreading around the site. Keep the wound covered. Take the medication as prescribed. Return to emergency department if any alarming signs or symptoms occur. Prescriptions: Cephalexin [Keflex] 500 mg PO Q8HR #21 cap Mupirocin [Mupirocin 2%] 1 applic TOPICAL TID #60 gm Is patient prescribed a controlled substance at d/c from ED?: No When asked, does pt state using other controlled substances?: No If prescribed controlled substance>3 days was MAPS reviewed?: No If opioid is for acute pain is fill amount 7 days or less?: No If Rx opioid, was Start Talking consent form obtained?: No Referrals: Rivas Dawson MD [Primary Care Provider] - 1-2 days Time of Disposition: 20:47
[2018-03-16] MEDS ORDERED: CEPHALEXIN 500MG STARTER PACK 4 CAP BTL PO STA (21:00)
== END 2018-03-16 21:05 | disposition home or self-care (01) ==
LOC: EC 18:52
DX: K91.89 Other postprocedural complications and disorders of digestive system (principal); I10 Essential (primary) hypertension; Z86.73 Personal history of transient ischemic attack (TIA), and cerebral infarction without residual deficits; Z90.49 Acquired absence of other specified parts of digestive tract; Z79.899 Other long term (current) drug therapy; Z88.8 Allergy status to other drugs, medicaments and biological substances; Z88.6 Allergy status to analgesic agent
CPT/HCPCS: 99283

== ENCOUNTER → 2018-08-07 | Outpatient (CLI) | payer BC ==
--- NOTE | 2018-08-08 08:26 | XR ---
EXAMINATION TYPE: XR foot complete LT DATE OF EXAM: 08/07/2018 COMPARISON: None HISTORY: Pain in left foot, first metatarsal TECHNIQUE: Three-view left foot FINDINGS: Hallux valgus deformity is present. There is degenerative joint changes of first metatarsal -phalangeal joint space in the proximal interphalangeal joint space of the first digit. Degenerative changes are also evident within the additional proximal distal interphalangeal joint spaces of the se cond through fifth digits. Findings appear osteoarthritic. Typical large erosions and calcifications associated with gout are not identified. No acute fractures are identified. Soft tissues are unremarkable. Large Achilles tendon calcaneal rolo l spur is present. IMPRESSION: 1. Degenerative joint changes. Findings appear osteoarthritic. 2. Typical degenerative changes to suggest gout are not evident.
== END | disposition home or self-care (01) ==
LOC: RADXRMAIN 16:14
PROVIDERS: ATTEND Internal Medicine Geriatric Medicine
DX: M19.072 Primary osteoarthritis, left ankle and foot (principal)

== ENCOUNTER → 2019-07-18 | Outpatient (CLI) | payer BC ==
[~2019-07-18] MED LIST changes: +DOBUTamine DRIP for NUC MED 500 MG in DEXTROSE/WATER 1 250ML.BAG IV ONE; -LACTATED RINGERS 1,000 ML IV SCH; -MORPHINE SULFATE 2 MG/ML SYRINGE IV PRN; -ONDANSETRON 4 MG/2 ML VIAL IVP PRN; -ceFAZolin IN SWFI 2 GM/20 ML SYRINGE IVP ONE
--- NOTE | 2019-07-18 11:29 | P.STRESS ---
- Stress Test Note Stress Test Results/Findings: Exam Performed: dobutamine stress echo Exam Date: 07/18/19 Reason for Exam: fatigue Height: 5 ft 7 in Weight: 79.379 kg Protocol: DSE Stage: II Duration of Exercise: 6.40 Resting Heart Rate: 72 Resting Blood Pressure: 134/77 Maximum Achieved Heart Rate: 111 Maximum Achieved Blood Pressure: 137/76 85% PMHR: 111 100% PMHR: METS: Technologist Comment: Stress Test Results/Findings: This is a 89-year-old gentleman with history of hypertension and previous CVA has been experiencing exertional shortness of breath, relieved with rest. Stress data: Baseline blood pressure is 134/77 with pulse rate of 72. Baseline EKG showed sinus rhythm with normal VT interval and QRS duration. A standard dose of dobutamine was initiated at 10 mics and was titrated to 20 mics, achieving a maximal heart rate of 111 with a blood pressure 137/76. Patient started complaining of chest pain and started having frequent PVCs. The symptoms improved after discontinuation dobutamine. EKG showed about a millimeter ST depression in inferolateral leads suggestive of possible ischemia. Echo data: Baseline echo images showed normal wall motion and thickening. Echo images taken at low-dose showed augmentation of wall motion and thickening, but at peak there appeared to be hypokinesis of the apical septum, apex, and also inferoapical segments. There is improvement of the LV function to normal range in the post exercise.. Patient also had chest pressure associated with wall motion abnormalities. Final impression: #1. Positive stress test with borderline EKG changes #2. Positive dobutamine stress echo
--- NOTE | 2019-07-19 11:23 | ECHOS ---
Stress Test Results/Findings: Exam Performed: dobutamine stress echo Exam Date: 07/18/19 Reason for Exam: fatigue Height: 5 ft 7 in Weight: 79.379 kg Protocol: DSE Stage: II Duration of Exercise: 6.40 Resting Heart Rate: 72 Resting Blood Pressure: 134/77 Maximum Achieved Heart Rate: 111 Maximum Achieved Blood Pressure: 137/76 85% PMHR: 111 100% PMHR: METS: Technologist Comment: Stress Test Results/Findings: This is a 89-year-old gentleman with history of hypertension and previous CVA has been experiencing exertional shortness of breath, relieved with rest. Stress data: Baseline blood pressure is 134/77 with pulse rate of 72. Baseline EKG showed sinus rhythm with normal TN interval and QRS duration. A standard dose of dobutamine was initiated at 10 mics and was titrated to 20 mics, achieving a maximal heart rate of 111 with a blood pressure 137/76. Patient started complaining of chest pain and started having frequent PVCs. The symptoms improved after discontinuation dobutamine. EKG showed about a millimeter ST depression in inferolateral leads suggestive of possible ischemia. Echo data: Baseline echo images showed normal wall motion and thickening. Echo images taken at low-dose showed augmentation of wall motion and thickening, but at peak there appeared to be hypokinesis of the apical septum, apex, and also inferoapical segments. There is improvement of the LV function to normal range in the post exercise.. Patient also had chest pressure associated with wall motion abnormalities. Final impression: #1. Positive stress test with borderline EKG changes #2. Positive dobutamine stress echo MTDD
== END | disposition home or self-care (01) ==
LOC: RADNMMAIN 09:43
PROVIDERS: ATTEND Internal Medicine Geriatric Medicine
DX: R06.02 Shortness of breath (principal)
CPT/HCPCS: 93351; J1250

== ENCOUNTER → 2019-07-25 | Outpatient (CLI) | payer BC ==
[2019-07-25 08:58] LABS: HCT 39.1 % (39.0-53.0); MCH 30.6 pg (25.0-35.0); MCHC 33.3 g/dL (31.0-37.0); MCV 91.8 fL (80.0-100.0); Mean Platelet Volume 5.9; Platelet Count 248 k/uL (150-450); RBC 4.26 m/uL (4.30-5.90); RDW 13.4 % (11.5-15.5); WBC 7.6 k/uL (3.8-10.6)
[2019-07-25 15:45] LABS: African American GFR (CKD) 56.1 (60.0-200.0); BUN/Creat Ratio 21.54 Ratio (12.00-20.00); Calcium 9.3 mg/dL (8.7-10.3)
== END | disposition home or self-care (01) ==
LOC: LABWHC1 08:04
PROVIDERS: ATTEND Internal Medicine Interventional Cardiology
DX: I10 Essential (primary) hypertension (principal); I25.10 Atherosclerotic heart disease of native coronary artery without angina pectoris
CPT/HCPCS: 36415; 80048; 85027

== ENCOUNTER 2019-10-07 18:06 | Emergency (ER) | payer MEDICARE, BC ==
[2019-10-07 18:26] VITALS: RESP 18
--- NOTE | 2019-10-07 18:39 | ED ---
Weakness HPI - General Chief complaint: Recheck/Abnormal Lab/Rx Stated complaint: Shoulder pain Time Seen by Provider: 10/07/19 18:34 Source: patient, RN notes reviewed, old records reviewed Mode of arrival: wheelchair Limitations: no limitations - History of Present Illness Initial comments: This is an 89-year-old male DF evaluation of right upper extremity pain right shoulder pain in the symptoms are improved currently. Patient is to follow-up with his family doctor regarding outpatient states patient not allowing him to sleep. Denies any trauma. No shortness of breath no cough or congestion no recent fevers and again no trauma. Patient states symptoms have been persistent here in the ER livelier mildly improved currently. Patient has had his gallbladder removed. Denying any headache chest pain. She did have a near syncopal event he believes secondary to pain but also admits to decreased appetite and dehydration - Related Data Home Medications Medication Instructions Recorded Confirmed amLODIPine BES/OLMESARTAN MED 1 tab PO DAILY@1700 01/15/15 03/16/18 [Elsa 10-20 mg Tablet] Loratadine 10 mg PO DAILY PRN 12/16/16 03/16/18 Furosemide [Lasix] 20 mg PO Q48H 03/08/18 03/16/18 Docusate [Colace] 100 mg PO BID 03/16/18 03/16/18 Tamsulosin [Flomax] 0.4 mg PO HS 03/16/18 03/16/18 Previous Rx's Medication Instructions Recorded Metoprolol Tartrate [Lopressor] 25 mg PO DAILY #60 tab 02/27/18 Cephalexin [Keflex] 500 mg PO Q8HR #21 cap 03/16/18 Mupirocin [Mupirocin 2%] 1 applic TOPICAL TID #60 gm 03/16/18 Allergies Allergy/AdvReac Type Severity Reaction Status Date / Time temazepam [From Restoril] AdvReac Unknown "Made him Verified 10/07/19 18:27 Loopy" tramadol AdvReac Unknown Unknown- Verified 10/07/19 18:27 Daughter does not want him to have. Review of Systems ROS Statement: Those systems with pertinent positive or pertinent negative responses have been documented in the HPI. ROS Other: All systems not noted in ROS Statement are negative. Past Medical History Past Medical History: CVA/TIA, GERD/Reflux, Hypertension Additional Past Medical History / Comment(s): HX RENAL CALCULUS, TIA 7-8 yrs ago-, "sluggy gall bladder", elevated liver enzymes in past, History of Any Multi-Drug Resistant Organisms: None Reported Past Surgical History: Cholecystectomy Additional Past Surgical History / Comment(s): colonoscopy, jane cataracts Past Anesthesia/Blood Transfusion Reactions: No Reported Reaction Additional Past Anesthesia/Blood Transfusion Reaction / Comment(s): NO FAMILY HX KNOWN Past Psychological History: No Psychological Hx Reported Smoking Status: Never smoker Past Alcohol Use History: None Reported Past Drug Use History: None Reported - Past Family History Mother Family Medical History: Unable to Obtain Father Family Medical History: Unable to Obtain Daughter(s) Family Medical History: Diabetes Mellitus (patient has 2 daughters one with diabetes mellitus type 2.) Son(s) Family Medical History: No Reported History (patient has one son no major medical problems.) General Exam Limitations: no limitations General appearance: alert, in no apparent distress Head exam: Present: atraumatic, normocephalic, normal inspection Eye exam: Present: normal appearance, PERRL, EOMI. Absent: scleral icterus, conjunctival injection, periorbital swelling ENT exam: Present: normal exam, mucous membranes moist Neck exam: Present: normal inspection. Absent: tenderness, meningismus, lymphadenopathy Respiratory exam: Present: normal lung sounds bilaterally. Absent: respiratory distress, wheezes, rales, rhonchi, stridor Cardiovascular Exam: Present: regular rate, normal rhythm, normal heart sounds. Absent: systolic murmur, diastolic murmur, rubs, gallop, clicks GI/Abdominal exam: Present: soft, normal bowel sounds. Absent: distended, tenderness, guarding, rebound, rigid Extremities exam: Present: normal inspection, full ROM, normal capillary refill. Absent: tenderness, pedal edema, joint swelling, calf tenderness Back exam: Present: normal inspection Neurological exam: Present: alert, oriented X3, CN II-XII intact Psychiatric exam: Present: normal affect, normal mood Skin exam: Present: warm, dry, intact, normal color. Absent: rash Course Vital Signs 10/07/19 10/07/19 18:24 19:28 Temperature 97.2 F L 98 F Pulse Rate 77 72 Respiratory 18 18 Rate Blood Pressure 144/74 133/82 O2 Sat by Pulse 95 96 Oximetry - Reevaluation(s) Reevaluation #1: 10/07/19 20:37 Medical records reviewed Reevaluation #2: 10/07/19 20:37 Referring syncopal activity here in the ER EKG Findings - EKG Comments: EKG Findings:: EKG shows sinus rhythm rate of 72, NV 178 170, QRS 80, QTC 420 - EKG Results: EKG: interpreted by WALKER Medical Decision Making - Medical Decision Making 89 male here for evaluation of right shoulder. Weakness. She has adequate symptom management currently. CT chest negative for PE or acute disease. Patient can be discharged home - Lab Data Result diagrams: 10/07/19 18:50 10/07/19 18:50 Lab Results 10/07/19 10/07/19 10/07/19 Range/Units 18:50 18:50 18:50 WBC 10.1 (3.8-10.6) k/uL RBC 4.36 (4.30-5.90) m/uL Hgb 12.9 L (13.0-17.5) gm/dL Hct 39.2 (39.0-53.0) % MCV 89.8 (80.0-100.0) fL MCH 29.6 (25.0-35.0) pg MCHC 32.9 (31.0-37.0) g/dL RDW 14.0 (11.5-15.5) % Plt Count 275 (150-450) k/uL Neutrophils % 77 % Lymphocytes % 15 % Monocytes % 6 % Eosinophils % 1 % Basophils % 0 % Neutrophils # 7.7 (1.3-7.7) k/uL Lymphocytes # 1.5 (1.0-4.8) k/uL Monocytes # 0.6 (0-1.0) k/uL Eosinophils # 0.1 (0-0.7) k/uL Basophils # 0.0 (0-0.2) k/uL APTT 27.6 (22.0-30.0) sec D-Dimer 1.85 H (<0.60) mg/L FEU Sodium 137 (137-145) mmol/L Potassium 4.7 (3.5-5.1) mmol/L Chloride 102 (98-107) mmol/L Carbon Dioxide 23 (22-30) mmol/L Anion Gap 12 mmol/L BUN 31 H (9-20) mg/dL Creatinine 1.20 (0.66-1.25) mg/dL Est GFR (CKD-EPI)AfAm 62 (>60 ml/min/1.73 sqM) Est GFR (CKD-EPI)NonAf 53 (>60 ml/min/1.73 sqM) Glucose 186 H (74-99) mg/dL Plasma Lactic Acid Akhil (0.7-2.0) mmol/L Calcium 9.7 (8.4-10.2) mg/dL Phosphorus 2.4 L (2.5-4.5) mg/dL Magnesium 2.1 (1.6-2.3) mg/dL Total Bilirubin 0.6 (0.2-1.3) mg/dL AST 102 H (17-59) U/L ALT 40 (4-49) U/L Alkaline Phosphatase 333 H (38-126) U/L Creatine Kinase 106 (55-170) U/L Troponin I (0.000-0.034) ng/mL NT-Pro-B Natriuret Pep pg/mL Total Protein 8.0 (6.3-8.2) g/dL Albumin 4.4 (3.5-5.0) g/dL Urine Color Urine Appearance (Clear) Urine pH (5.0-8.0) Ur Specific [place] (1.001-1.035) Urine Protein (Negative) Urine Glucose (UA) (Negative) Urine Ketones (Negative) Urine Blood (Negative) Urine Nitrite (Negative) Urine Bilirubin (Negative) Urine Urobilinogen (<2.0) mg/dL Ur Leukocyte Esterase (Negative) Urine RBC (0-5) /hpf Urine WBC (0-5) /hpf Ur Squamous Epith Cells (0-4) /hpf Urine Mucus (None) /hpf 10/07/19 10/07/19 10/07/19 Range/Units 18:50 18:50 18:50 WBC (3.8-10.6) k/uL RBC (4.30-5.90) m/uL Hgb (13.0-17.5) gm/dL Hct (39.0-53.0) % MCV (80.0-100.0) fL MCH (25.0-35.0) pg MCHC (31.0-37.0) g/dL RDW (11.5-15.5) % Plt Count (150-450) k/uL Neutrophils % % Lymphocytes % % Monocytes % % Eosinophils % % Basophils % % Neutrophils # (1.3-7.7) k/uL Lymphocytes # (1.0-4.8) k/uL Monocytes # (0-1.0) k/uL Eosinophils # (0-0.7) k/uL Basophils # (0-0.2) k/uL APTT (22.0-30.0) sec D-Dimer (<0.60) mg/L FEU Sodium (137-145) mmol/L Potassium (3.5-5.1) mmol/L Chloride (98-107) mmol/L Carbon Dioxide (22-30) mmol/L Anion Gap mmol/L BUN (9-20) mg/dL Creatinine (0.66-1.25) mg/dL Est GFR (CKD-EPI)AfAm (>60 ml/min/1.73 sqM) Est GFR (CKD-EPI)NonAf (>60 ml/min/1.73 sqM) Glucose (74-99) mg/dL Plasma Lactic Acid Akhil 2.1 H* (0.7-2.0) mmol/L Calcium (8.4-10.2) mg/dL Phosphorus (2.5-4.5) mg/dL Magnesium (1.6-2.3) mg/dL Total Bilirubin (0.2-1.3) mg/dL AST (17-59) U/L ALT (4-49) U/L Alkaline Phosphatase (38-126) U/L Creatine Kinase (55-170) U/L Troponin I <0.012 (0.000-0.034) ng/mL NT-Pro-B Natriuret Pep 187 pg/mL Total Protein (6.3-8.2) g/dL Albumin (3.5-5.0) g/dL Urine Color Urine Appearance (Clear) Urine pH (5.0-8.0) Ur Specific [place] (1.001-1.035) Urine Protein (Negative) Urine Glucose (UA) (Negative) Urine Ketones (Negative) Urine Blood (Negative) Urine Nitrite (Negative) Urine Bilirubin (Negative) Urine Urobilinogen (<2.0) mg/dL Ur Leukocyte Esterase (Negative) Urine RBC (0-5) /hpf Urine WBC (0-5) /hpf Ur Squamous Epith Cells (0-4) /hpf Urine Mucus (None) /hpf 10/07/19 Range/Units 19:26 WBC (3.8-10.6) k/uL RBC (4.30-5.90) m/uL Hgb (13.0-17.5) gm/dL Hct (39.0-53.0) % MCV (80.0-100.0) fL MCH (25.0-35.0) pg MCHC (31.0-37.0) g/dL RDW (11.5-15.5) % Plt Count (150-450) k/uL Neutrophils % % Lymphocytes % % Monocytes % % Eosinophils % % Basophils % % Neutrophils # (1.3-7.7) k/uL Lymphocytes # (1.0-4.8) k/uL Monocytes # (0-1.0) k/uL Eosinophils # (0-0.7) k/uL Basophils # (0-0.2) k/uL APTT (22.0-30.0) sec D-Dimer (<0.60) mg/L FEU Sodium (137-145) mmol/L Potassium (3.5-5.1) mmol/L Chloride (98-107) mmol/L Carbon Dioxide (22-30) mmol/L Anion Gap mmol/L BUN (9-20) mg/dL Creatinine (0.66-1.25) mg/dL Est GFR (CKD-EPI)AfAm (>60 ml/min/1.73 sqM) Est GFR (CKD-EPI)NonAf (>60 ml/min/1.73 sqM) Glucose (74-99) mg/dL Plasma Lactic Acid Akhil (0.7-2.0) mmol/L Calcium (8.4-10.2) mg/dL Phosphorus (2.5-4.5) mg/dL Magnesium (1.6-2.3) mg/dL Total Bilirubin (0.2-1.3) mg/dL AST (17-59) U/L ALT (4-49) U/L Alkaline Phosphatase (38-126) U/L Creatine Kinase (55-170) U/L Troponin I (0.000-0.034) ng/mL NT-Pro-B Natriuret Pep pg/mL Total Protein (6.3-8.2) g/dL Albumin (3.5-5.0) g/dL Urine Color Yellow Urine Appearance Clear (Clear) Urine pH 5.5 (5.0-8.0) Ur Specific [place] 1.019 (1.001-1.035) Urine Protein 1+ H (Negative) Urine Glucose (UA) Negative (Negative) Urine Ketones Trace H (Negative) Urine Blood Negative (Negative) Urine Nitrite Negative (Negative) Urine Bilirubin Negative (Negative) Urine Urobilinogen <2.0 (<2.0) mg/dL Ur Leukocyte Esterase Negative (Negative) Urine RBC 1 (0-5) /hpf Urine WBC <1 (0-5) /hpf Ur Squamous Epith Cells <1 (0-4) /hpf Urine Mucus Occasional H (None) /hpf - Radiology Data Radiology results: report reviewed (CT chest negative for PE), image reviewed Disposition Clinical Impression: Right shoulder pain Disposition: HOME SELF-CARE Condition: Good Instructions (If sedation given, give patient instructions): Shoulder Pain (ED) Is patient prescribed a controlled substance at d/c from ED?: No Referrals: Rivas Dawson MD [Primary Care Provider] - 1-2 days
[2019-10-07 19:08] LABS: Basophils % (A) 0 %; Eosinophils # (A) 0.1 k/uL (0-0.7); Eosinophils % (A) 1 %; HCT 39.2 % (39.0-53.0); HGB 12.9 gm/dL (13.0-17.5); Lymphocytes # (A) 1.5 k/uL (1.0-4.8); Lymphocytes % (A) 15 %; MCH 29.6 pg (25.0-35.0); MCHC 32.9 g/dL (31.0-37.0); MCV 89.8 fL (80.0-100.0); Mean Platelet Volume 7.6; Monocytes # (A) 0.6 k/uL (0-1.0); Monocytes % (A) 6 %; Neutrophils # (A) 7.7 k/uL (1.3-7.7); Neutrophils % (A) 77 %; Platelet Count 275 k/uL (150-450); RBC 4.36 m/uL (4.30-5.90); WBC 10.1 k/uL (3.8-10.6)
[2019-10-07 19:18] LABS: Albumin 4.4 g/dL (3.5-5.0); Calcium 9.7 mg/dL (8.4-10.2); Magnesium 2.1 mg/dL (1.6-2.3); Phosphorus 2.4 mg/dL (2.5-4.5); Potassium 4.7 mmol/L (3.5-5.1); Total Bilirubin 0.6 mg/dL (0.2-1.3)
[2019-10-07 19:25] LABS: Partial Thromboplastin Time 27.6 sec (22.0-30.0)
--- NOTE | 2019-10-07 19:27 | XR ---
EXAMINATION TYPE: XR chest 2V DATE OF EXAM: 10/07/2019 COMPARISON: 03/08/2018 INDICATION: Weakness shoulder pain TECHNIQUE: Frontal and lateral views of the chest are obtained. FINDINGS: The heart size is normal. The pulmonary vasculature is normal. The lungs are clear. IMPRESSION: 1. No acute pulmonary process.
[2019-10-07 19:33] LABS: D-Dimer 1.85 mg/L FEU (<0.60)
[2019-10-07 19:35] LABS: Appearance,Urine Clear (Clear); Bilirubin,Urine Negative (Negative); Blood,Urine Negative (Negative); Color,Urine Yellow; Glucose,Urine (UA) Negative (Negative); Ketones,Urine Trace (Negative); Leukocyte Esterase,Urine Negative (Negative); Mucus,Urine Occasional /hpf; Nitrite,Urine Negative (Negative); PH, Urine 5.5 (5.0-8.0); Protein,Urine 1+ (Negative); RBC,Urine 1 /hpf (0-5); Specific Gravity,Urine 1.019 (1.001-1.035); Squamous Epithelial Cell,Urine <1 /hpf (0-4); Urobilinogen,Urine <2.0 mg/dL (<2.0); WBC,Urine <1 /hpf (0-5)
[2019-10-07] MEDS ORDERED: MORPHINE SULFATE 4 MG/ML SYRINGE IVP STA (19:56)
--- NOTE | 2019-10-07 20:59 | CT ---
CT CHEST FOR PULMONARY EMBOLISM. EXAMINATION TYPE: CT angio chest DATE OF EXAM: 10/07/2019 INDICATION: chest pain CT DLP: 358.2 mGycm, Automated exposure control for dose reduction was used. CONTRAST: Patient injected with 70cc mL of Isovue 370. COMPARISON: 02/19/2018 TECHNIQUE: CT of the chest is performed on a spiral scan at 2 mm thick sections. Study is performed with intravenous contrast timed for evaluation for pulmonary embolism. This will limit additional po rtions of the evaluation. 3-D MIP images reconstructed by the technologist are reviewed on the compu ter in the coronal and sagittal planes. FINDINGS: No persistent filling defects are evident to suggest an acute pulmonary embolism. No mediastinal or hilar adenopathy enlarged by CT criteria is evident. The ascending aorta diameter at the level of the main pulmonary artery is 3.8 cm. The main pulmonary artery diameter at the bifur cation is 2.3 cm. Lung windows are clear. Thyroid is somewhat heterogenous similar to prior study. Limited CT section through the upper abdomen. Some minimal ascites may be adjacent to the liver. IMPRESSIONS: 1. No acute pulmonary embolism. 2. Suggestion of some minimal ascites adjacent to the liver within the [id number].
[2019-10-07] MEDS ORDERED: ACET/COD 300 MG/30 MG STARTER PACK 6 TAB BTL PO STA (21:12)
[2019-10-07 21:28] VITALS: BP 126/72; PULSE 80; TEMP 97.8
== END 2019-10-07 21:34 | disposition home or self-care (01) ==
LOC: EC 18:06
DX: M25.511 Pain in right shoulder (principal); R63.0 Anorexia; E86.0 Dehydration; R53.1 Weakness; I10 Essential (primary) hypertension; Z86.73 Personal history of transient ischemic attack (TIA), and cerebral infarction without residual deficits; Z79.899 Other long term (current) drug therapy; Z88.8 Allergy status to other drugs, medicaments and biological substances; Z88.5 Allergy status to narcotic agent
CPT/HCPCS: 36415; 93005; 85379; 83880; 80053; 82550; 83605; 83735; 84100; 84484; 85025; 85730; 81001; 71046; 71275; 99284; 96374; J2270; Q9967

== ENCOUNTER 2019-10-25 15:04 | Observation (INO) | payer BC, MEDICARE ==
[2019-10-25] MEDS ORDERED: MORPHINE SULFATE 2 MG/ML SYRINGE IVP STA (15:33)
[2019-10-25] MEDS ORDERED: PANTOPRAZOLE 40 MG/10 ML VIAL IVP STA (15:33)
[2019-10-25] MEDS ORDERED: SODIUM CHLORIDE 0.9% 1,000 ML IV STA (15:33)
[2019-10-25 16:38] LABS: Basophils # (A) 0.1 k/uL (0-0.2); Basophils % (A) 1 %; Eosinophils # (A) 0.1 k/uL (0-0.7); Eosinophils % (A) 2 %; HCT 36.2 % (39.0-53.0); HGB 11.6 gm/dL (13.0-17.5); Lymphocytes # (A) 1.3 k/uL (1.0-4.8); Lymphocytes % (A) 16 %; MCH 29.1 pg (25.0-35.0); MCHC 32.1 g/dL (31.0-37.0); MCV 90.6 fL (80.0-100.0); Mean Platelet Volume 7.2; Monocytes # (A) 0.7 k/uL (0-1.0); Monocytes % (A) 9 %; Neutrophils # (A) 5.7 k/uL (1.3-7.7); Neutrophils % (A) 70 %; Platelet Count 254 k/uL (150-450); RDW 14.7 % (11.5-15.5); WBC 8.1 k/uL (3.8-10.6)
[2019-10-25 16:47] LABS: Albumin 3.6 g/dL (3.5-5.0); Calcium 8.6 mg/dL (8.4-10.2); Potassium 4.5 mmol/L (3.5-5.1); Total Bilirubin 0.8 mg/dL (0.2-1.3); Total Protein 7.2 g/dL (6.3-8.2)
--- NOTE | 2019-10-25 16:48 | ED ---
General Adult HPI - General Chief complaint: Abdominal Pain Stated complaint: abdominal problems-sent by Samir Time Seen by Provider: 10/25/19 15:33 Source: patient, family, RN notes reviewed, old records reviewed Mode of arrival: wheelchair Limitations: no limitations - History of Present Illness Initial comments: 89-year-old male presents for reevaluation of abdominal pain. Patient was seen by primary care physician and sent to the emergency department for reevaluation. He had been seen at an outside hospital yesterday for abdominal pain and dis tention. He's had nausea and been unable to eat a significant amount. He's had hard stool and significant amount of flatus. He had a computed tomography scan performed yesterday and at the request of his primary care physician this will be repeated. CT showed concern for mass in the liver. Primary care physician also requested that the patient be admitted with both general surgery and gastroenterology on consult. CT showing concern for hepatocellular carcinoma and liver mass. - Related Data Home Medications Medication Instructions Recorded Confirmed amLODIPine BES/OLMESARTAN MED 1 tab PO DAILY@1700 01/15/15 03/16/18 [Elsa 10-20 mg Tablet] Loratadine 10 mg PO DAILY PRN 12/16/16 03/16/18 Furosemide [Lasix] 20 mg PO Q48H 03/08/18 03/16/18 Docusate [Colace] 100 mg PO BID 03/16/18 03/16/18 Tamsulosin [Flomax] 0.4 mg PO HS 03/16/18 03/16/18 Previous Rx's Medication Instructions Recorded Metoprolol Tartrate [Lopressor] 25 mg PO DAILY #60 tab 02/27/18 Cephalexin [Keflex] 500 mg PO Q8HR #21 cap 03/16/18 Mupirocin [Mupirocin 2%] 1 applic TOPICAL TID #60 gm 03/16/18 Allergies Allergy/AdvReac Type Severity Reaction Status Date / Time temazepam [From Restoril] AdvReac Unknown "Made him Verified 10/07/19 18:27 Loopy" tramadol AdvReac Unknown Unknown- Verified 10/07/19 18:27 Daughter does not want him to have. Review of Systems ROS Statement: Those systems with pertinent positive or pertinent negative responses have been documented in the HPI. ROS Other: All systems not noted in ROS Statement are negative. Past Medical History Past Medical History: CVA/TIA, GERD/Reflux, Hypertension Additional Past Medical History / Comment(s): HX RENAL CALCULUS, TIA 7-8 yrs ago-, "sluggy gall bladder", elevated liver enzymes in past, History of Any Multi-Drug Resistant Organisms: None Reported Past Surgical History: Cholecystectomy Additional Past Surgical History / Comment(s): colonoscopy, jane cataracts Past Anesthesia/Blood Transfusion Reactions: No Reported Reaction Additional Past Anesthesia/Blood Transfusion Reaction / Comment(s): NO FAMILY HX KNOWN Past Psychological History: No Psychological Hx Reported Smoking Status: Never smoker Past Alcohol Use History: None Reported Past Drug Use History: None Reported - Past Family History Mother Family Medical History: Unable to Obtain Father Family Medical History: Unable to Obtain Daughter(s) Family Medical History: Diabetes Mellitus (patient has 2 daughters one with diabetes mellitus type 2.) Son(s) Family Medical History: No Reported History (patient has one son no major medical problems.) General Exam Limitations: no limitations General appearance: alert, in no apparent distress Head exam: Present: atraumatic, normocephalic Eye exam: Present: normal appearance, PERRL ENT exam: Present: normal exam Neck exam: Present: normal inspection. Absent: tenderness, meningismus Respiratory exam: Present: normal lung sounds bilaterally. Absent: respiratory distress Cardiovascular Exam: Present: regular rate, normal rhythm GI/Abdominal exam: Present: soft, distended, tenderness, hyperactive bowel sounds. Absent: guarding, rebound Extremities exam: Present: normal inspection, normal capillary refill. Absent: pedal edema, calf tenderness Neurological exam: Present: alert, oriented X3, CN II-XII intact. Absent: motor sensory deficit Psychiatric exam: Present: normal affect, normal mood Skin exam: Present: warm, dry, intact. Absent: cyanosis, diaphoretic Course Vital Signs 10/25/19 10/25/19 15:20 18:15 Temperature 98.0 F Pulse Rate 87 89 Respiratory 19 16 Rate Blood Pressure 115/70 125/74 O2 Sat by Pulse 94 L 95 Oximetry EKG Findings - EKG Comments: EKG Findings:: EKG: Normal sinus rhythm, rate of 69, MD interval 178, QRS duration 84, QTC 4:30, no ST segment elevation or depression Medical Decision Making - Medical Decision Making Primary care physician Dr. Dawson, had contacted me prior to patient arrival with concern for persistent abdominal pain and nausea. Pain is epigastric. Patient has minimal abdominal tenderness. No rebound or guarding. He has stable vitals. He has normal CBC, CMP showing an elevated alkaline phosphatase. CT is really ordered at the request of the patient's primary care physician. He is also admitted with both gastroenterology and surgery on consult. - Lab Data Result diagrams: 10/25/19 16:27 10/25/19 16:27 Lab Results 10/25/19 10/25/19 10/25/19 Range/Units 16:27 16:27 16:27 WBC 8.1 (3.8-10.6) k/uL RBC 4.00 L (4.30-5.90) m/uL Hgb 11.6 L (13.0-17.5) gm/dL Hct 36.2 L (39.0-53.0) % MCV 90.6 (80.0-100.0) fL MCH 29.1 (25.0-35.0) pg MCHC 32.1 (31.0-37.0) g/dL RDW 14.7 (11.5-15.5) % Plt Count 254 (150-450) k/uL Neutrophils % 70 % Lymphocytes % 16 % Monocytes % 9 % Eosinophils % 2 % Basophils % 1 % Neutrophils # 5.7 (1.3-7.7) k/uL Lymphocytes # 1.3 (1.0-4.8) k/uL Monocytes # 0.7 (0-1.0) k/uL Eosinophils # 0.1 (0-0.7) k/uL Basophils # 0.1 (0-0.2) k/uL PT (9.0-12.0) sec INR (<1.2) APTT (22.0-30.0) sec Sodium 137 (137-145) mmol/L Potassium 4.5 (3.5-5.1) mmol/L Chloride 104 (98-107) mmol/L Carbon Dioxide 22 (22-30) mmol/L Anion Gap 11 mmol/L BUN 27 H (9-20) mg/dL Creatinine 0.99 (0.66-1.25) mg/dL Est GFR (CKD-EPI)AfAm 78 (>60 ml/min/1.73 sqM) Est GFR (CKD-EPI)NonAf 67 (>60 ml/min/1.73 sqM) Glucose 110 H (74-99) mg/dL Plasma Lactic Acid Akhil 1.1 (0.7-2.0) mmol/L Calcium 8.6 (8.4-10.2) mg/dL Total Bilirubin 0.8 (0.2-1.3) mg/dL AST 126 H (17-59) U/L ALT 47 (4-49) U/L Alkaline Phosphatase 545 H (38-126) U/L Total Protein 7.2 (6.3-8.2) g/dL Albumin 3.6 (3.5-5.0) g/dL Amylase 46 (30-110) U/L Lipase 69 (23-300) U/L Urine Color Urine Appearance (Clear) Urine pH (5.0-8.0) Ur Specific [place] (1.001-1.035) Urine Protein (Negative) Urine Glucose (UA) (Negative) Urine Ketones (Negative) Urine Blood (Negative) Urine Nitrite (Negative) Urine Bilirubin (Negative) Urine Urobilinogen (<2.0) mg/dL Ur Leukocyte Esterase (Negative) Urine RBC (0-5) /hpf Urine WBC (0-5) /hpf Urine Mucus (None) /hpf 10/25/19 10/25/19 Range/Units 16:27 16:27 WBC (3.8-10.6) k/uL RBC (4.30-5.90) m/uL Hgb (13.0-17.5) gm/dL Hct (39.0-53.0) % MCV (80.0-100.0) fL MCH (25.0-35.0) pg MCHC (31.0-37.0) g/dL RDW (11.5-15.5) % Plt Count (150-450) k/uL Neutrophils % % Lymphocytes % % Monocytes % % Eosinophils % % Basophils % % Neutrophils # (1.3-7.7) k/uL Lymphocytes # (1.0-4.8) k/uL Monocytes # (0-1.0) k/uL Eosinophils # (0-0.7) k/uL Basophils # (0-0.2) k/uL PT 10.9 (9.0-12.0) sec INR 1.1 (<1.2) APTT 18.9 L (22.0-30.0) sec Sodium (137-145) mmol/L Potassium (3.5-5.1) mmol/L Chloride (98-107) mmol/L Carbon Dioxide (22-30) mmol/L Anion Gap mmol/L BUN (9-20) mg/dL Creatinine (0.66-1.25) mg/dL Est GFR (CKD-EPI)AfAm (>60 ml/min/1.73 sqM) Est GFR (CKD-EPI)NonAf (>60 ml/min/1.73 sqM) Glucose (74-99) mg/dL Plasma Lactic Acid Akhil (0.7-2.0) mmol/L Calcium (8.4-10.2) mg/dL Total Bilirubin (0.2-1.3) mg/dL AST (17-59) U/L ALT (4-49) U/L Alkaline Phosphatase (38-126) U/L Total Protein (6.3-8.2) g/dL Albumin (3.5-5.0) g/dL Amylase (30-110) U/L Lipase (23-300) U/L Urine Color Yellow Urine Appearance Clear (Clear) Urine pH 6.0 (5.0-8.0) Ur Specific [place] 1.019 (1.001-1.035) Urine Protein 1+ H (Negative) Urine Glucose (UA) Negative (Negative) Urine Ketones Negative (Negative) Urine Blood Negative (Negative) Urine Nitrite Negative (Negative) Urine Bilirubin Negative (Negative) Urine Urobilinogen 3.0 (<2.0) mg/dL Ur Leukocyte Esterase Negative (Negative) Urine RBC 2 (0-5) /hpf Urine WBC 1 (0-5) /hpf Urine Mucus Occasional H (None) /hpf Disposition Clinical Impression: Abdominal pain, Liver mass Disposition: ADMITTED IP TO THIS [facility] Condition: Stable Is patient prescribed a controlled substance at d/c from ED?: No Decision to Admit Reason: Admit from [facility] Decision Date: 10/25/19 Decision Time: 18:05
[2019-10-25 16:55] LABS: INR 1.1 (<1.2); Prothrombin Time 10.9 sec (9.0-12.0)
[2019-10-25 17:07] LABS: Partial Thromboplastin Time 18.9 sec (22.0-30.0)
[2019-10-25 17:29] LABS: Appearance,Urine Clear (Clear); Bilirubin,Urine Negative (Negative); Blood,Urine Negative (Negative); Color,Urine Yellow; Glucose,Urine (UA) Negative (Negative); Ketones,Urine Negative (Negative); Leukocyte Esterase,Urine Negative (Negative); Mucus,Urine Occasional /hpf; Nitrite,Urine Negative (Negative); Protein,Urine 1+ (Negative); RBC,Urine 2 /hpf (0-5); Specific Gravity,Urine 1.019 (1.001-1.035); WBC,Urine 1 /hpf (0-5)
[2019-10-25] MEDS ORDERED: HYDROmorphone 0.5 MG/0.5 ML SYRINGE IVP PRN (17:44)
[2019-10-25] MEDS ORDERED: NALOXONE 0.4 MG/ML 1 ML VIAL IV PRN (17:44)
[2019-10-25] MEDS ORDERED: ONDANSETRON 4 MG/2 ML VIAL IVP PRN (17:46)
--- NOTE | 2019-10-25 18:47 | CT ---
EXAMINATION TYPE: CT abdomen pelvis w con DATE OF EXAM: 10/25/2019 COMPARISON: 02/19/2018 HISTORY: Abdominal pain CT DLP: 1029.9 mGycm Automated exposure control for dose reduction was used. TECHNIQUE: Helical acquisition of images was performed from the lung bases through the pelvis. CONTRAST: Performed without Oral Contrast and with IV Contrast, patient injected with 100 mL of Isovu e 300. FINDINGS: LUNG BASES: No acute findings. However, prominent left and right coronary calcifications are noted. LIVER: There is a rounded 7 cm diameter heterogeneous liver mass in the anterior segment right hepati c lobe centered above the level of the monique hepatis. The margins of the mass are not well defined, p articularly medially where there is evidence of invasion of the right portal vein. The liver margins are diffusely and markedly scalloped. There is a small volume of perihepatic ascite s. There is only scant volume of paracolic gutter peritoneal fluid and a small volume of pelvic cul-d e-sac fluid. BILIARY: No significant abnormality. PANCREAS: No significant abnormality is seen. SPLEEN: No significant abnormality is seen. ADRENALS: No significant abnormality is seen. KIDNEYS: No significant abnormality is seen. FREE AIR: No free air is visualized. RETROPERITONEAL ADENOPATHY: None visualized REPRODUCTIVE ORGANS: No significant abnormality is seen URINARY BLADDER: No significant abnormality is seen. PELVIC ADENOPATHY: None visualized. OSSEOUS STRUCTURES: No significant abnormality is seen. BOWEL: No significant abnormality is seen. IMPRESSION: 7 CM RIGHT HEPATIC MASS WITH IMAGING FEATURES CONSISTENT WITH HEPATOCELLULAR CARCINOMA. Results discussed with ordering physician at 6:30 PM.
[2019-10-25] MEDS ORDERED: METHYL SALICYLATE/MENTHOL CREAM 5 OZ TOPICAL PRN (20:10)
[2019-10-25] MEDS: MELATONIN 5 MG TABLET PO SCH (21:10)
[2019-10-25] MEDS: PANTOPRAZOLE 40 MG/10 ML VIAL IVP SCH (21:11)
[2019-10-25] MEDS: MORPHINE SULFATE 2 MG/ML SYRINGE IVP PRN (21:11)
[2019-10-26] MEDS: MORPHINE SULFATE 2 MG/ML SYRINGE IVP PRN (01:45)
[2019-10-26 08:36] LABS: Basophils % (A) 1 %; Eosinophils # (A) 0.2 k/uL (0-0.7); Eosinophils % (A) 3 %; HCT 38.7 % (39.0-53.0); HGB 12.1 gm/dL (13.0-17.5); Lymphocytes # (A) 0.9 k/uL (1.0-4.8); Lymphocytes % (A) 14 %; MCH 28.9 pg (25.0-35.0); MCHC 31.3 g/dL (31.0-37.0); MCV 92.2 fL (80.0-100.0); Mean Platelet Volume 7.2; Monocytes # (A) 0.6 k/uL (0-1.0); Monocytes % (A) 9 %; Neutrophils # (A) 4.5 k/uL (1.3-7.7); Neutrophils % (A) 72 %; Platelet Count 240 k/uL (150-450); RDW 14.8 % (11.5-15.5); WBC 6.2 k/uL (3.8-10.6)
[2019-10-26] MEDS: PANTOPRAZOLE 40 MG/10 ML VIAL IVP SCH ×2 (08:46→21:57)
[2019-10-26 08:52] LABS: Albumin 3.5 g/dL (3.5-5.0); Calcium 8.6 mg/dL (8.4-10.2); Potassium 4.7 mmol/L (3.5-5.1); Total Bilirubin 1.1 mg/dL (0.2-1.3); Total Protein 7.1 g/dL (6.3-8.2)
[2019-10-26] MEDS ORDERED: MAG HYDROX/AL HYDROX/SIMETH 30 ML, HYOSCYAMINE ELIXIR 10 ML, LIDOCAINE VISCOUS 2% 10 ML PO ONE ×3 (10:00)
[2019-10-26 10:52] VITALS: BMI 26.2
--- NOTE | 2019-10-26 11:26 | P.GSCN ---
History of Present Illness Consult date: 10/26/19 History of present illness: 89-year-old male presents to the emergency department with complaints of abdominal pain. He is known to me from a previous laparoscopic cholecystectomy that was performed in 2018. He states that over the past 2 months he has been having abdominal bloating and extensive belching and abdominal pain. He states that he had recent cardiac workup prior to these episodes and was started on a beta jesus. He believes that the beta jesus has caused the symptoms. He states his bowel function has not changed tremendously. He denies any nausea or emesis episodes. He states he has been in and out of the hospital since August due to these issues. He has been followed by cardiology and his primary care physician. On most recent workup, he did have a CT of the abdomen and pelvis. This CT of the abdomen and pelvis was suspicious for a 7 cm mass within the liver that appears to involve the right portal vein. He denies any right upper quadrant pain at this time. Review of Systems All systems: negative Past Medical History Past Medical History: CVA/TIA, GERD/Reflux, Hypertension Additional Past Medical History / Comment(s): HX RENAL CALCULUS, TIA 7-8 yrs ago-, "sluggy gall bladder", elevated liver enzymes in past, History of Any Multi-Drug Resistant Organisms: None Reported Past Surgical History: Cholecystectomy Additional Past Surgical History / Comment(s): colonoscopy, jane cataracts Past Anesthesia/Blood Transfusion Reactions: No Reported Reaction Additional Past Anesthesia/Blood Transfusion Reaction / Comm: NO FAMILY HX KNOWN Past Psychological History: No Psychological Hx Reported Smoking Status: Never smoker Past Alcohol Use History: None Reported Past Drug Use History: None Reported - Past Family History Mother Family Medical History: Unable to Obtain Father Family Medical History: Unable to Obtain Daughter(s) Family Medical History: Diabetes Mellitus (patient has 2 daughters one with diabetes mellitus type 2.) Additional Family Medical History / Comment(s): Patient has 2 daughters one with diabetes mellitus type 2. Son(s) Family Medical History: No Reported History (patient has one son no major me dical problems.) Additional Family Medical History / Comment(s): Patient has one son no major medical problems. Medications and Allergies Home Medications Medication Instructions Recorded Confirmed Type amLODIPine BES/OLMESARTAN MED 1 tab PO HS@1700 01/15/15 10/25/19 History [Elsa 10-20 mg Tablet] Loratadine 10 mg PO HS@1700 12/16/16 10/25/19 History Lidocaine HCl [Aspercreme] 1 applic TOPICAL DAILY PRN 10/25/19 10/25/19 History Pantoprazole Sodium [Protonix] 40 mg PO HS@1700 10/25/19 10/25/19 History Allergies Allergy/AdvReac Type Severity Reaction Status Date / Time temazepam [From Restoril] AdvReac Unknown "Made him Verified 10/25/19 19:37 Loopy" tramadol AdvReac Unknown Unknown- Verified 10/25/19 19:37 Daughter does not want him to have. Surgical - Exam Osteopathic Statement: *. No significant issues noted on an osteopathic structural exam other than those noted in the History and Physical/Consult. Vital Signs Temp Pulse Resp BP Pulse Ox 98.0 F 87 19 115/70 94 L 10/25/19 15:20 10/25/19 15:20 10/25/19 15:20 10/25/19 15:20 10/25/19 15:20 - General well nourished, no distress - Eyes PERRL - Neck trachea midline - Respiratory normal respiratory effort - Abdomen Soft, nontender, moderate distention, no rebound, no guarding - Psychiatric oriented to time, oriented to person, oriented to place Results - Labs 10/26/19 07:52 10/26/19 07:52 Abnormal Lab Results - Last 24 Hours (Table) 10/25/19 10/25/19 10/25/19 Range/Units 16:27 16:27 16:27 RBC 4.00 L (4.30-5.90) m/uL Hgb 11.6 L (13.0-17.5) gm/dL Hct 36.2 L (39.0-53.0) % Lymphocytes # (1.0-4.8) k/uL APTT 18.9 L (22.0-30.0) sec BUN 27 H (9-20) mg/dL Glucose 110 H (74-99) mg/dL GGT (15-73) U/L AST 126 H (17-59) U/L Alkaline Phosphatase 545 H (38-126) U/L Urine Protein (Negative) Urine Mucus (None) /hpf 10/25/19 10/26/19 10/26/19 Range/Units 16:27 07:52 07:52 RBC 4.20 L (4.30-5.90) m/uL Hgb 12.1 L (13.0-17.5) gm/dL Hct 38.7 L (39.0-53.0) % Lymphocytes # 0.9 L (1.0-4.8) k/uL APTT (22.0-30.0) sec BUN 23 H (9-20) mg/dL Glucose 109 H (74-99) mg/dL GGT 376 H (15-73) U/L AST 113 H (17-59) U/L Alkaline Phosphatase 502 H (38-126) U/L Urine Protein 1+ H (Negative) Urine Mucus Occasional H (None) /hpf Diabetes panel 10/25/19 10/26/19 Range/Units 16:27 07:52 Sodium 137 138 (137-145) mmol/L Potassium 4.5 4.7 (3.5-5.1) mmol/L Chloride 104 103 (98-107) mmol/L Carbon Dioxide 22 25 (22-30) mmol/L BUN 27 H 23 H (9-20) mg/dL Creatinine 0.99 1.01 (0.66-1.25) mg/dL Glucose 110 H 109 H (74-99) mg/dL Calcium 8.6 8.6 (8.4-10.2) mg/dL AST 126 H 113 H (17-59) U/L ALT 47 42 (4-49) U/L Alkaline Phosphatase 545 H 502 H (38-126) U/L Total Protein 7.2 7.1 (6.3-8.2) g/dL Albumin 3.6 3.5 (3.5-5.0) g/dL Calcium panel 10/25/19 10/26/19 Range/Units 16:27 07:52 Calcium 8.6 8.6 (8.4-10.2) mg/dL Albumin 3.6 3.5 (3.5-5.0) g/dL Pituitary panel 10/25/19 10/26/19 Range/Units 16:27 07:52 Sodium 137 138 (137-145) mmol/L Potassium 4.5 4.7 (3.5-5.1) mmol/L Chloride 104 103 (98-107) mmol/L Carbon Dioxide 22 25 (22-30) mmol/L BUN 27 H 23 H (9-20) mg/dL Creatinine 0.99 1.01 (0.66-1.25) mg/dL Glucose 110 H 109 H (74-99) mg/dL Calcium 8.6 8.6 (8.4-10.2) mg/dL Adrenal panel 10/25/19 10/26/19 Range/Units 16:27 07:52 Sodium 137 138 (137-145) mmol/L Potassium 4.5 4.7 (3.5-5.1) mmol/L Chloride 104 103 (98-107) mmol/L Carbon Dioxide 22 25 (22-30) mmol/L BUN 27 H 23 H (9-20) mg/dL Creatinine 0.99 1.01 (0.66-1.25) mg/dL Glucose 110 H 109 H (74-99) mg/dL Calcium 8.6 8.6 (8.4-10.2) mg/dL Total Bilirubin 0.8 1.1 (0.2-1.3) mg/dL AST 126 H 113 H (17-59) U/L ALT 47 42 (4-49) U/L Alkaline Phosphatase 545 H 502 H (38-126) U/L Total Protein 7.2 7.1 (6.3-8.2) g/dL Albumin 3.6 3.5 (3.5-5.0) g/dL Assessment and Plan (1) Liver mass Narrative/Plan: I had an extensive discussion with the patient and the patient's family at bedside. I did spend over 30 minutes with the family discussing the case. Due to the finding of the liver mass on CT, I would recommend biopsy of this mass for a pathologic diagnosis to guide treatment planning. We will attempt to do this with interventional radiology. I did provide the recommendation that if he were to require any surgical intervention for the hepatic mass that he would need to see a hepatobiliary specialist at a tertiary care facility. The patient's family had many questions about his Cardiologic status and abdominal bloating. Cardiology and GI are consulted for recommendations on these issues. All questions were answered with the patient and the patient's family. We will continue to follow and provide recommendations based on the patient's clinical progress. Current Visit: Yes Status: Acute Code(s): R16.0 - HEPATOMEGALY, NOT ELSEWHERE CLASSIFIED SNOMED Code(s): 850641046
[2019-10-26] MEDS: SUCRALFATE 1 GM TAB PO SCH ×2 (11:34→17:07)
--- NOTE | 2019-10-26 14:13 | US ---
Therapeutic paracentesis. DATE OF EXAM: 10/26/2019 CLINICAL HISTORY: Ascites Preliminary imaging demonstrated no evidence of ascites. IMPRESSION: 1. No sizable fluid collection for paracentesis.
--- NOTE | 2019-10-26 14:23 | P.HPIM ---
History of Present Illness H&P Date: 10/26/19 This is an 89-year-old male one of Dr. Dawson with past medical history significant for hypertension and hypertensive cardio vascular disease, history of kidney stone, TIA, GERD, enlarged prostate in January 2018, patient underwent cholecystectomy in the same time he had liver biopsy which was positive for cirrhosis. At that time there was no mass seen on the liver. Patient had a dobutamine stress test done in July 2019 that was positive. Patient was placed on Lopressor but apparently was unable to tolerate this. Family states that ever since he started the Lopressor which she only took for a brief period time he has had increasing abdominal pain with GERD symptoms so severe that he had to stop the Lopressor. He has had significant abdominal pain since August. Patient was seen at [facility] [place] 2 days ago and had a CAT scan done that did show a liver mass. He was then sent to Dr. Hays's office and after that sent to [facility]. Patient complains of nausea, no vomiting, no coffee-ground emesis, no blood or black tarry stools. He states he passes a lot of gas. Pain to his abdomen is usually generalized and it moves around but the last day or 2 has been staying in the epigastric area. He has tried Maalox and Pepto-Bismol and these do nothing for him. He's also tried [place] water that was recommended without any improvement. He is agreeable to try a GI cocktail. He states he Does get some relief with Protonix. Daughter relates that they've been told that he has ulcer but has not had an EGD. Patient came into [facility] emergency center for evaluation. AST 126, ALT 47, phosphatase 545. Electrolytes within normal limits, WBC 8.1, hemoglobin 11.6, platelet count 254, BUN 27, creatinine 0.99. ProBNP 201, lactic acid 1.1. GGT 376. CAT scan of the abdomen and pelvis with contrast revealed a 7 cm hepatic mass consistent with hepatocellular cancer. Patient was afebrile, heart rate 87, blood pressure 115/70, pulse ox 94% on room air. The patient was placed on the MedSur floor and consult requested with GI and general surgery. Consults added for Dr. Soto and Dr. Sarabia. Review of Systems Constitutional: Denies chills, Denies fatigue, Denies fever, Denies lethargy, Denies malaise, Denies night sweats, Denies poor appetite Eyes: denies blurred vision, denies pain Ears, nose, mouth and throat: Denies headache, Denies sore throat, Denies vertigo Cardiovascular: Denies chest pain, Denies shortness of breath, Denies syncope Respiratory: Denies cough, Denies cough with sputum, Denies dyspnea, Denies home oxygen, Denies wheezing Gastrointestinal: Reports abdominal pain, Reports bloating, Reports loss of appetite, Reports nausea, Denies coffee ground emesis, Denies diarrhea, Denies hematemesis, Denies hematochezia, Denies vomiting Genitourinary: Denies dysuria, Denies urinary frequency, Denies urinary retention Musculoskeletal: Denies frequent falls, Denies gait dysfunction, Denies muscle weakness, Denies myalgias Integumentary: Denies pruritus, Denies rash, Denies wounds Neurological: Denies change in mentation, Denies change in speech, Denies confusion, Denies numbness, Denies seizures, Denies weakness Psychiatric: Denies anxiety, Denies depression Endocrine: Denies fatigue, Denies weight change Past Medical History Past Medical History: CVA/TIA, GERD/Reflux, Hypertension Additional Past Medical History / Comment(s): HX RENAL CALCULUS, TIA 7-8 yrs ago-, "sluggy gall bladder", elevated liver enzymes in past, History of Any Multi-Drug Resistant Organisms: None Reported Past Surgical History: Cholecystectomy Additional Past Surgical History / Comment(s): colonoscopy, jane cataracts Past Anesthesia/Blood Transfusion Reactions: No Reported Reaction Additional Past Anesthesia/Blood Transfusion Reaction / Comment(s): NO FAMILY HX KNOWN Past Psychological History: No Psychological Hx Reported Smoking Status: Never smoker Past Alcohol Use History: None Reported Past Drug Use History: None Reported - Past Family History Mother Family Medical History: Unable to Obtain Father Family Medical History: Unable to Obtain Daughter(s) Family Medical History: Diabetes Mellitus (patient has 2 daughters one with diabetes mellitus type 2.) Additional Family Medical History / Comment(s): Patient has 2 daughters one with diabetes mellitus type 2. Son(s) Family Medical History: No Reported History (patient has one son no major medical problems.) Additional Family Medical History / Comment(s): Patient has one son no major medical problems. Medications and Allergies Home Medications Medication Instructions Recorded Confirmed Type amLODIPine BES/OLMESARTAN MED 1 tab PO HS@1700 01/15/10/25/19 History [Elsa 10-20 mg Tablet] Loratadine 10 mg PO HS@1700 12/16/10/25/19 History Lidocaine HCl [Aspercreme] 1 applic TOPICAL DAILY PRN 10/25/19 10/25/19 History Pantoprazole Sodium [Protonix] 40 mg PO HS@1700 10/25/19 10/25/19 History Allergies Allergy/AdvReac Type Severity Reaction Status Date / Time temazepam [From Restoril] AdvReac Unknown "Made him Verified 10/25/19 19:37 Loopy" tramadol AdvReac Unknown Unknown- Verified 10/25/19 19:37 Daughter does not want him to have. Physical Exam Vitals: Vital Signs Temp Pulse Pulse Resp BP BP Pulse Ox 10/26/19 05:00 98.2 F 68 18 146/76 95 10/25/19 21:00 98.2 F 81 18 127/80 97 10/25/19 18:15 89 16 125/74 95 10/25/19 15:20 98.0 F 87 19 115/70 94 L Intake and Output 10/25/19 10/26/19 10/26/19 22:59 06:59 14:59 Intake Total 320 300 Balance 320 300 Intake: Oral 320 300 Other: Voiding Method Toilet # Voids 1 2 Weight 75.75 kg - Constitutional General appearance: average body habitus, no distress - EENT Eyes: anicteric sclerae, EOMI, PERRLA, no ptosis, no scleral icterus, normal appearance ENT: hearing grossly normal, NA/AT, normal oropharynx, no thrush Ears: bilateral: normal - Neck Neck: no lymphadenopathy, normal ROM, no rigidity, no stridor, no thyromegaly Carotids: bilateral: upstroke normal Thyroid: bilateral: normal size - Respiratory Respiratory: bilateral: diminished, negative: dullness, rales, rhonchi, wheezing, prolonged expiration, prolonged inspiration - Cardiovascular Rhythm: regular Heart sounds: normal: S1, S2 Abnormal Heart Sounds: systolic murmur, no S3 Gallop, no S4 Gallop - Gastrointestinal General gastrointestinal: normal bowel sounds, soft, tenderness (right upper quadrant and epigastric) - Integumentary Integumentary: normal, normal turgor - Musculoskeletal Musculoskeletal: generalized weakness, strength equal bilaterally - Psychiatric Psychiatric: A&O x's 3, appropriate affect, intact judgment & insight Results CBC & Chem 7: 10/26/19 07:52 10/26/19 07:52 Labs: Abnormal Lab Results - Last 24 Hours (Table) 10/25/19 10/25/19 10/25/19 Range/Units 16:27 16:27 16:27 RBC 4.00 L (4.30-5.90) m/uL Hgb 11.6 L (13.0-17.5) gm/dL Hct 36.2 L (39.0-53.0) % Lymphocytes # (1.0-4.8) k/uL APTT 18.9 L (22.0-30.0) sec BUN 27 H (9-20) mg/dL Glucose 110 H (74-99) mg/dL AST 126 H (17-59) U/L Alkaline Phosphatase 545 H (38-126) U/L Urine Protein (Negative) Urine Mucus (None) /hpf 10/25/19 10/26/19 Range/Units 16:27 07:52 RBC 4.20 L (4.30-5.90) m/uL Hgb 12.1 L (13.0-17.5) gm/dL Hct 38.7 L (39.0-53.0) % Lymphocytes # 0.9 L (1.0-4.8) k/uL APTT (22.0-30.0) sec BUN (9-20) mg/dL Glucose (74-99) mg/dL AST (17-59) U/L Alkaline Phosphatase (38-126) U/L Urine Protein 1+ H (Negative) Urine Mucus Occasional H (None) /hpf Thrombosis Risk Factor Assmnt - DVT/VTE Prophylaxis DVT/VTE Prophylaxis: Pharmacologic Prophylaxis ordered - Choose All That Apply Any of the Below Risk Factors Present?: Yes Each Factor Represents 1 point: Obesity (BMI >25) Other Risk Factors: Yes Each Risk Factor Represents 3 Points: Age 75 years or older Other congenital or acquired thrombophilia - If yes, enter type in comment: No Thrombosis Risk Factor Assessment Total Risk Factor Score: 4 Thrombosis Risk Factor Assessment Level: Moderate Risk Assessment and Plan Plan: 1. Epigastric pain secondary to possible gastritis, gastroesophageal reflux disease. Patient agreeable to try GI cocktail. Continue Protonix increased to twice daily. 2. 7 cm hepatic mass consistent with hepatocellular carcinoma. Consult with general surgery, oncology. Patient will be scheduled for ultrasound-guided biop sy in one week as an outpatient. Prescription has been left on the patient's chart. Hold aspirin. This has been discontinued off home medication list. Paracentesis was ordered by GI. 3. Elevated liver function tests with obstructive pattern suspected. GI on consult. No ERCP indicated. 4. Possible coronary artery disease with abnormal stress test July 2019. Patient reports that he is unable to tolerate Lopressor. Cardiology consult. 5. History of TIA 8 years ago with no residual. 6. Hypertension and hypertensive cardiovascular disease. Continue losartan 100 mg orally at bedtime and amlodipine 10 mg orally once every day. 7. Severe GERD. Continue patient on Protonix 40 mg increased to twice daily. 8. DVT prophylaxis. Continue heparin 5000 units subcutaneously every 12 hours. 9. GI prophylaxis. Continue PPI. 10. BPH. Monitor for urinary retention. Patient placed as observation status. CODE STATUS: Full code--discussed with patient and family Impression and plan of care have been directed as dictated by the signing physician. Sarah Damon nurse practitioner acting as scribe for signing physician.
--- NOTE | 2019-10-26 14:53 | P.CRDCN ---
History of Present Illness History of present illness: HISTORY OF PRESENTING ILLNESS This is a pleasant 89-year-old male past medical history significant for hypertension, abnormal stress test 07/2019 who is being treated with maximum medical therapy, TIA, cirrhosis and history of renal stones. He follows in the office with Dr. Shoemaker. We have been asked to see in consultation for secondary to abnormal stress test. He underwent a dobutamine stress echo in July 2019 that revealed evidence of stress induced ischemia. He saw Dr. Shoemaker thereafter and was advised medical therapy. He was placed on lopressor initially but was experiencing gas, nausea and bloating so he attributed these symptoms to the new medication and therefore does not want to take. Dr. Shoemaker suggested Toprol and he also declined. He came to the hospital with symptoms of abdominal pain and bloating. CT of abdomen pelvis revealed a 7 cm right hepatic mass with features consistent with hepatocellular carcinoma. Ultrasound of his abdomen revealed no sizable fluid collection or ascites for drainage. He has been seen by surgery and they plan for biopsy with interventional radiology. He complains of a full feeling in his abdomen and pain in the epigastric region with palpation. No chest pain, dizziness, shortness of breath or palpitations. DIAGNOSTICS EKG reveals sinus mechanism. Laboratory reviewed, WBC 6.2, hemoglobin 12.1, platelets 240, sodium 138, potassium 4.7, creatinine 1.01, GGT 376, AST 113, ALT 42, alkaline phosphate 502. Current cardiac medications include amlodipine/olmesartan 10/20 mg daily. REVIEW OF SYSTEMS At the time of my exam: CONSTITUTIONAL: Denies fever or chills. CARDIOVASCULAR: Denies chest pain, shortness of breath, orthopnea, PND or palpitations. RESPIRATORY: Denies cough. GASTROINTESTINAL: Complains of abdominal pain and bloating. Denies diarrhea, constipation, nausea or vomiting. MUSCULOSKELETAL: Denies myalgias. NEUROLOGIC: Denies numbness, tingling or weakness. ENDOCRINE: Denies fatigue, weight change, polydipsia or polyurina. GENITOURINARY: Denies burning, hematuria or urgency with micturation. HEMATOLOGIC: Denies history of anemia or bleeding. PHYSICAL EXAMINATION Blood pressure 146/76 heart rate 68 afebrile and maintaining oxygen saturation on room air. CONSTITUTIONAL: No apparent distress. HEENT: Head is normocephalic. Pupils are equal, round. Sclerae anicteric. Mucous membranes of the mouth are moist. No JVD. No carotid bruit. CHEST EXAMINATION: Lungs are clear to auscultation. No chest wall tenderness is noted on palpation or with deep breathing. HEART EXAMINATION: Regular rate and rhythm. S1, S2 heard. No murmurs, gallops or rub. ABDOMEN: Soft, tender in the epigastric region, mildly distended. Positive bowel sounds. EXTREMITIES: 2+ peripheral pulses, no lower extremity edema and no calf tenderness. NEUROLOGIC EXAMINATION: Patient is awake, alert and oriented x3. ASSESSMENT Liver mass Underlying coronary artery disease likely, intolerant to beta blockers. Hypertension PLAN Proceed with biopsy of liver mass. Initiate aspirin 81 mg after the procedure. Lengthy discussion with the patient regarding beta blockers and he is quite adamant he is not taking lopressor, toprol or coreg no matter what. Ongoing medical management and evaluation. Thank you kindly for this consultation. Nurse Practitioner note has been reviewed, I agree with a documented findings and plan of care. Patient was seen and examined. Past Medical History Past Medical History: CVA/TIA, GERD/Reflux, Hypertension Additional Past Medical History / Comment(s): HX RENAL CALCULUS, TIA 7-8 yrs ago-, "sluggy gall bladder", elevated liver enzymes in past, History of Any Multi-Drug Resistant Organisms: None Reported Past Surgical History: Cholecystectomy Additional Past Surgical History / Comment(s): colonoscopy, jane cataracts Past Anesthesia/Blood Transfusion Reactions: No Reported Reaction Additional Past Anesthesia/Blood Transfusion Reaction / Comment(s): NO FAMILY HX KNOWN Past Psychological History: No Psychological Hx Reported Smoking Status: Never smoker Past Alcohol Use History: None Reported Past Drug Use History: None Reported - Past Family History Mother Family Medical History: Unable to Obtain Father Family Medical History: Unable to Obtain Daughter(s) Family Medical History: Diabetes Mellitus (patient has 2 daughters one with diabetes mellitus type 2.) Additional Family Medical History / Comment(s): Patient has 2 daughters one with diabetes mellitus type 2. Son(s) Family Medical History: No Reported History (patient has one son no major medical problems.) Additional Family Medical History / Comment(s): Patient has one son no major medical problems. Medications and Allergies Home Medications Medication Instructions Recorded Confirmed Type amLODIPine BES/OLMESARTAN MED 1 tab PO HS@1700 01/15/15 10/25/19 History [Elsa 10-20 mg Tablet] Loratadine 10 mg PO HS@1700 12/16/16 10/25/19 History Lidocaine HCl [Aspercreme] 1 applic TOPICAL DAILY PRN 10/25/19 10/25/19 History Pantoprazole Sodium [Protonix] 40 mg PO HS@1700 10/25/19 10/25/19 History Allergies Allergy/AdvReac Type Severity Reaction Status Date / Time temazepam [From Restoril] AdvReac Unknown "Made him Verified 10/25/19 19:37 Loopy" tramadol AdvReac Unknown Unknown- Verified 10/25/19 19:37 Daughter does not want him to have. Physical Exam Vitals: Vital Signs Temp Pulse Pulse Resp BP BP Pulse Ox 10/26/19 08:00 18 10/26/19 05:00 98.2 F 68 18 146/76 95 10/25/19 21:00 98.2 F 81 18 127/80 97 10/25/19 18:15 89 16 125/74 95 10/25/19 15:20 98.0 F 87 19 115/70 94 L Intake and Output 10/25/19 10/26/19 10/26/19 22:59 06:59 14:59 Intake Total 320 300 Balance 320 300 Intake: Oral 320 300 Other: Voiding Method Toilet Toilet # Voids 1 2 Weight 75.75 kg 75.75 kg Results 10/26/19 07:52 10/26/19 07:52 Cardiac Enzymes 10/25/19 10/26/19 10/26/19 Range/Units 16:27 07:52 07:52 AST 126 H 113 H (17-59) U/L Troponin I <0.012 (0.000-0.034) ng/mL Coagulation 10/25/19 Range/Units 16:27 PT 10.9 (9.0-12.0) sec APTT 18.9 L (22.0-30.0) sec CBC 10/25/19 10/26/19 Range/Units 16:27 07:52 WBC 8.1 6.2 (3.8-10.6) k/uL RBC 4.00 L 4.20 L (4.30-5.90) m/uL Hgb 11.6 L 12.1 L (13.0-17.5) gm/dL Hct 36.2 L 38.7 L (39.0-53.0) % Plt Count 254 240 (150-450) k/uL Comprehensive Metabolic Panel 10/25/19 10/26/19 Range/Units 16:27 07:52 Sodium 137 138 (137-145) mmol/L Potassium 4.5 4.7 (3.5-5.1) mmol/L Chloride 104 103 (98-107) mmol/L Carbon Dioxide 22 25 (22-30) mmol/L BUN 27 H 23 H (9-20) mg/dL Creatinine 0.99 1.01 (0.66-1.25) mg/dL Glucose 110 H 109 H (74-99) mg/dL Calcium 8.6 8.6 (8.4-10.2) mg/dL AST 126 H 113 H (17-59) U/L ALT 47 42 (4-49) U/L Alkaline Phosphatase 545 H 502 H (38-126) U/L Total Protein 7.2 7.1 (6.3-8.2) g/dL Albumin 3.6 3.5 (3.5-5.0) g/dL Current Medications Generic Name Dose Route Start Last Admin Trade Name Freq PRN Reason Stop Dose Admin Amlodipine Besylate 10 mg 10/26/19 17:00 Norvasc PO HS@1700 [facility] Loratadine 10 mg 10/26/19 17:00 Claritin PO HS@1700 [facility] Losartan Potassium 100 mg 10/26/19 17:00 Cozaar PO HS@1700 [facility] Melatonin 5 mg 10/25/19 21:00 10/25/19 21:10 Melatonin PO 5 mg HS [facility] Administration Methyl Salicylate 1 applic 10/25/19 20:10 Thera-Gesic Cream TOPICAL DAILY PRN NECK PAIN Morphine Sulfate 2 mg 10/25/19 20:09 10/26/19 01:45 Morphine Sulfate (Inj) IVP 2 mg Q4H PRN Administration Pain/Discomfort Naloxone HCl 0.2 mg 10/25/19 17:44 Narcan IV Q2M PRN Opioid Reversal Ondansetron HCl 4 mg 10/25/19 17:46 Zofran IVP Q6HR PRN Nausea And Vomiting Pantoprazole Sodium 40 mg 10/25/19 21:00 10/26/19 08:46 Protonix IVP 40 mg BID ANGELITO Administration Sucralfate 1 gm 10/26/19 12:30 10/26/19 11:34 Carafate PO 1 gm AC-TID ANGELITO Administration Intake and Output 10/25/19 10/26/19 10/26/19 22:59 06:59 14:59 Intake Total 320 300 Balance 320 300 Intake: Oral 320 300 Other: Voiding Method Toilet Toilet # Voids 1 2 Weight 75.75 kg 75.75 kg Patient Weight 10/27/19 06:59 Weight 75.75 kg 10/26/19 07:52 10/26/19 07:52
[2019-10-26] MEDS ORDERED: ASPIRIN 81 MG PO SCH (17:00)
[2019-10-26] MEDS ORDERED: amLODIPine 10 MG TAB PO SCH (17:00)
[2019-10-26] MEDS ORDERED: PANTOPRAZOLE 40 MG TABLET PO SCH (17:00)
[2019-10-26] MEDS ORDERED: LORATADINE 10 MG TAB PO SCH (17:00)
[2019-10-26] MEDS ORDERED: LOSARTAN 50 MG TAB PO SCH (17:00)
--- NOTE | 2019-10-26 17:04 | NM ---
EXAMINATION TYPE: NM bone scan whole body DATE OF EXAM: 10/26/2019 COMPARISON: NONE HISTORY: Malignancy Hepatic mass Delayed whole-body scanning was performed following the injection of 21.2 mCi Tc 99m MDP. Images acq uired 3.25 hours post injection. FINDINGS: There is focal increased uptake in the right mid foot anteriorly. There is slight increased uptake at the left first MP joint. The remainder of the tracer distribution is normal. 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 There is no evidence of o sseous metastatic disease.
--- NOTE | 2019-10-26 17:48 | P.CONS ---
History of Present Illness - Reason for Consult Consult date: 10/26/19 7 cm liver mass Requesting physician: Sarah Damon - Chief Complaint abd pain - History of Present Illness Mr Caballero is a very pleasant 89-year-old male patient who we've been asked to see for suspect hepatocellular carcinoma. Patient has been complaining of nausea, increased indigestion, constipation, epigastric abdominal pain, increased foul flatus, and distention progressive since around [place], associated with poor appetite and weight loss over the last few months. Patient had a gallbladder removal little over a year ago, did well but, since the summer, family has noted that he has progressively declined. No fever, adenopathy, dysphagia, odynophagia, ERNIE, cough, chest pain, changes in bladder habits, bleeding or swelling. Review of Systems 14 point review of systems is negative except as stated in HPI Past Medical History Past Medical History: CVA/TIA, GERD/Reflux, Hypertension Additional Past Medical History / Comment(s): HX RENAL CALCULUS, TIA 7-8 yrs ago-, "sluggy gall bladder", elevated liver enzymes in past, History of Any Multi-Drug Resistant Organisms: None Reported Past Surgical History: Cholecystectomy Additional Past Surgical History / Comment(s): colonoscopy, jane cataracts Past Anesthesia/Blood Transfusion Reactions: No Reported Reaction Additional Past Anesthesia/Blood Transfusion Reaction / Comm: NO FAMILY HX KNOWN Past Psychological History: No Psychological Hx Reported Smoking Status: Never smoker Past Alcohol Use History: None Reported Past Drug Use History: None Reported - Past Family History Mother Family Medical History: Unable to Obtain Father Family Medical History: Unable to Obtain Daughter(s) Family Medical History: Diabetes Mellitus (patient has 2 daughters one with diabetes mellitus type 2.) Additional Family Medical History / Comment(s): Patient has 2 daughters one with diabetes mellitus type 2. Son(s) Family Medical History: No Reported History (patient has one son no major medical problems.) Additional Family Medical History / Comment(s): Patient has one son no major medical problems. Medications and Allergies Home Medications Medication Instructions Recorded Confirmed Type amLODIPine BES/OLMESARTAN MED 1 tab PO HS@1700 01/15/15 10/25/19 History [Elsa 10-20 mg Tablet] Loratadine 10 mg PO HS@1700 12/16/17 01/23/20 History Lidocaine HCl [Aspercreme] 1 applic TOPICAL DAILY PRN 10/25/19 10/25/19 History Pantoprazole Sodium [Protonix] 40 mg PO HS@1700 10/25/19 10/25/19 History Allergies Allergy/AdvReac Type Severity Reaction Status Date / Time temazepam [From Restoril] AdvReac Unknown "Made him Verified 10/25/19 19:37 Loopy" tramadol AdvReac Unknown Unknown- Verified 10/25/19 19:37 Daughter does not want him to have. Physical Exam Vitals: Vital Signs Temp Pulse Pulse Pulse Resp BP BP 10/26/19 16:00 16 10/26/19 15:13 98.6 F 76 16 10/26/19 08:00 18 10/26/19 05:00 98.2 F 68 18 146/76 10/25/19 21:00 98.2 F 81 18 127/80 10/25/19 18:15 89 16 125/74 BP Pulse Ox 10/26/19 16:00 10/26/19 15:13 115/74 94 L 10/26/19 08:00 10/26/19 05:00 95 10/25/19 21:00 97 10/25/19 18:15 95 Intake and Output 10/26/19 10/26/19 10/26/19 06:59 14:59 22:59 Intake Total 300 800 Balance 300 800 Intake: Oral 300 800 Other: Voiding Method Toilet Toilet Toilet # Voids 2 2 Weight 75.75 kg - Constitutional General appearance: average body habitus, cooperative, no acute distress - EENT Eyes: anicteric sclerae, EOMI ENT: hearing grossly normal, normal oropharynx - Neck Neck: no lymphadenopathy - Respiratory Respiratory: bilateral: CTA - Cardiovascular Rhythm: regular Heart sounds: normal: S1, S2 Abnormal Heart Sounds: no systolic murmur, no diastolic murmur, no rub, no S3 Gallop, no S4 Gallop, no click, no other leg Peripheral Edema: bilateral: None - Gastrointestinal General gastrointestinal: no absent bowel sounds, no decreased bowel sounds, distended, no hepatomegaly, no hyperactive bowel sounds, normal bowel sounds, no organomegaly, no rigid, no scaphoid, soft, no splenomegaly, tenderness, no umbilical hernia, no ventral hernia Localized gastrointestinal: tender: epigastric periumbilical (firmness palpated) - Integumentary Integumentary: normal - Neurologic Neurologic: CNII-XII intact - Musculoskeletal Musculoskeletal: generalized weakness, strength equal bilaterally - Psychiatric Psychiatric: A&O x's 3, appropriate affect, intact judgment & insight Results CBC & Chem 7: 10/26/19 07:52 10/26/19 07:52 Labs: Abnormal Lab Results - Last 24 Hours (Table) 10/26/19 10/26/19 Range/Units 07:52 07:52 RBC 4.20 L (4.30-5.90) m/uL Hgb 12.1 L (13.0-17.5) gm/dL Hct 38.7 L (39.0-53.0) % Lymphocytes # 0.9 L (1.0-4.8) k/uL BUN 23 H (9-20) mg/dL Glucose 109 H (74-99) mg/dL GGT 376 H (15-73) U/L AST 113 H (17-59) U/L Alkaline Phosphatase 502 H (38-126) U/L CT scan - abdomen: report reviewed CT scan - chest: report reviewed CT scan - pelvis: report reviewed Assessment and Plan (1) Liver mass Narrative/Plan: Patient has been on aspirin so, plan is for diagnostic paracentesis. Patient is going to hold his aspirin, there is a liver biopsy planned for next week in case of nondiagnostic.. Patient had a CT of the abdomen and pelvis, on 10/07/18 patient had a CTA of the chest. There is no evidence of disease outside of the 7 cm liver mass. Nuclear medicine bone scan ordered for completion of staging. AFP has been ordered. Told patient that we would follow-up with him as information becomes available. Current Visit: Yes Status: Acute Priority: High Code(s): R16.0 - HEPATOMEGALY, NOT ELSEWHERE CLASSIFIED SNOMED Code(s): 710558341
[2019-10-26] MEDS: MELATONIN 5 MG TABLET PO SCH (21:50)
[2019-10-26] MEDS: HEPARIN SODIUM,PORCINE 5,000 UNIT/ML 1 ML VIAL SQ SCH (21:50)
--- NOTE | 2019-10-26 23:36 | P.CONS ---
History of Present Illness - Reason for Consult Consult date: 10/26/19 Abdominal pain, bloating and distention, liver mass Requesting physician: Mary Connell - Chief Complaint Abnormal CT imaging, abdominal pain - History of Present Illness 89-year-old male with multiple medical comorbidities including hypertension, nephrolithiasis, TIA, GERD, BPH, prior cholecystectomy, liver cirrhosis which is biopsy-proven presents to the hospital with a constellation of symptoms including abdominal pain, bloating and distention and abnormal CT imaging of the abdomen. The patient's has had symptoms of bloating, distention and gas which have been going on for the past few months. The patient feels that there is an association with initiation of metoprolol therapy in the outpatient setting in his symptoms. He often feels bloated with frequent belching and flatus and reports epigastric pain. The patient was started on Protonix therapy with i mprovement in his symptoms. He reports some nausea but no vomiting. Denies any signs or symptoms of GI bleed with no coffee-ground emesis, hematochezia or melena. No prior endoscopy with either EGD or colonoscopy. Laboratory evaluation on presentation significant for WBC 6.2, hemoglobin 12.1, platelet count 240,000, alkaline phosphatase 502, total bilirubin 1.1, AST 113 and ALT 92. GGT found to be arranged 76, amylase 46 and lipase 69 with a AST greater than 500. The patient did have a computed tomography scan of the abdomen was significant for a 7 cm right hepatic mass concerning for hepatocellular carcinoma. Review of Systems REVIEW OF SYSTEMS: CONSTITUTIONAL: Denies any fevers, chills, weight change or fatigue. CARDIOVASCULAR: Denies any chest pain, palpitations high or low blood pressures RESPIRATORY: Denies any shortness of breath, hemoptysis or cough. GENITOURINARY: No dysuria or hematuria. MUSCULOSKELETAL: No weakness reported. SKIN: Denies any new rashes or lesions, jaundice or pallor. PSYCHIATRIC: Denies any depression or anxiety. NEUROLOGY: Denies headache, denies any new focal deficits. EARS/NOSE/THROAT: No recent hearing change, congestion, nasal discharge or sore throat. EYES: No pain in eyes, discharge or change in vision. GASTROINTESTINAL: As per HPI.s Past Medical History Past Medical History: CVA/TIA, GERD/Reflux, Hypertension Additional Past Medical History / Comment(s): HX RENAL CALCULUS, TIA 7-8 yrs ago-, "sluggy gall bladder", elevated liver enzymes in past, History of Any Multi-Drug Resistant Organisms: None Reported Past Surgical History: Cholecystectomy Additional Past Surgical History / Comment(s): colonoscopy, jane cataracts Past Anesthesia/Blood Transfusion Reactions: No Reported Reaction Additional Past Anesthesia/Blood Transfusion Reaction / Comm: NO FAMILY HX KNOWN Past Psychological History: No Psychological Hx Reported Smoking Status: Never smoker Past Alcohol Use History: None Reported Past Drug Use History: None Reported - Past Family History Mother Family Medical History: Unable to Obtain Father Family Medical History: Unable to Obtain Daughter(s) Family Medical History: Diabetes Mellitus (patient has 2 daughters one with diabetes mellitus type 2.) Additional Family Medical History / Comment(s): Patient has 2 daughters one with diabetes mellitus type 2. Son(s) Family Medical History: No Reported History (patient has one son no major medical problems.) Additional Family Medical History / Comment(s): Patient has one son no major medical problems. Medications and Allergies Home Medications Medication Instructions Recorded Confirmed Type amLODIPine BES/OLMESARTAN MED 1 tab PO HS@1700 01/15/15 10/25/19 History [Elsa 10-20 mg Tablet] Loratadine 10 mg PO HS@1700 /10/25/19 History Lidocaine HCl [Aspercreme] 1 applic TOPICAL DAILY PRN 10/25/19 10/25/19 History Pantoprazole Sodium [Protonix] 40 mg PO HS@1700 10/25/19 10/25/19 History Allergies Allergy/AdvReac Type Severity Reaction Status Date / Time temazepam [From Restoril] AdvReac Unknown "Made him Verified 10/25/19 19:37 Loopy" tramadol AdvReac Unknown Unknown- Verified 10/25/19 19:37 Daughter does not want him to have. Physical Exam Vitals: Vital Signs Temp Pulse Pulse Resp BP BP Pulse Ox 10/26/19 08:00 18 10/26/19 05:00 98.2 F 68 18 146/76 95 10/25/19 21:00 98.2 F 81 18 127/80 97 10/25/19 18:15 89 16 125/74 95 10/25/19 15:20 98.0 F 87 19 115/70 94 L Intake and Output 0110/26/19 10/26/19 22:59 06:59 14:59 Intake Total 320 300 Balance 320 300 Intake: Oral 320 300 Other: Voiding Method Toilet Toilet # Voids 1 2 Weight 75.75 kg 75.75 kg On physical examination, patient appears comfortable in no apparent distress. HEAD: Normocephalic, atraumatic. EYES: No scleral icterus. No conjunctival injection. MOUTH: No lesions, tongue midline. NECK: Trachea midline, no gross abnormalities. CHEST: Clear to auscultation with no wheezing or rhonchi appreciated. HEART: S1-S2 appreciated. ABDOMEN: Soft, obese. Bowel sounds are positive. No organomegaly. No guarding or rigidity. EXTREMITIES: No pedal edema. SKIN: No rashes, no jaundice. NEUROLOGIC: Alert and oriented x3. No focal deficits. Results CBC & Chem 7: 10/26/19 07:52 10/26/19 07:52 Labs: Abnormal Lab Results - Last 24 Hours (Table) 10/25/19 10/25/19 10/25/19 Range/Units 16:27 16:27 16:27 RBC 4.00 L (4.30-5.90) m/uL Hgb 11.6 L (13.0-17.5) gm/dL Hct 36.2 L (39.0-53.0) % Lymphocytes # (1.0-4.8) k/uL APTT 18.9 L (22.0-30.0) sec BUN 27 H (9-20) mg/dL Glucose 110 H (74-99) mg/dL GGT (15-73) U/L AST 126 H (17-59) U/L Alkaline Phosphatase 545 H (38-126) U/L Urine Protein (Negative) Urine Mucus (None) /hpf 10/25/19 10/26/19 10/26/19 Range/Units 16:27 07:52 07:52 RBC 4.20 L (4.30-5.90) m/uL Hgb 12.1 L (13.0-17.5) gm/dL Hct 38.7 L (39.0-53.0) % Lymphocytes # 0.9 L (1.0-4.8) k/uL APTT (22.0-30.0) sec BUN 23 H (9-20) mg/dL Glucose 109 H (74-99) mg/dL GGT 376 H (15-73) U/L AST 113 H (17-59) U/L Alkaline Phosphatase 502 H (38-126) U/L Urine Protein 1+ H (Negative) Urine Mucus Occasional H (None) /hpf CT scan - abdomen: report reviewed (Computed tomography scan of the abdomen with findings of a 7 cm right hepatic mass concerning for hepatocellular carcinoma.) Assessment and Plan (1) Abdominal pain Narrative/Plan: 89-year-old male with multiple medical comorbidities reporting symptoms of gas, bloating, distention and abdominal pain. Improved on Protonix therapy. Unknown etiology with differential including gastritis, esophagitis, uncontrolled reflux disease, functional bowel disorder, dietary intolerances or other etiology. Current Visit: Yes Status: Acute Code(s): R10.9 - UNSPECIFIED ABDOMINAL PAIN SNOMED Code(s): 72965200 (2) Liver mass Current Visit: Yes Status: Acute Priority: High Code(s): R16.0 - HEPATOMEGALY, NOT ELSEWHERE CLASSIFIED SNOMED Code(s): 656164041 Plan: Supportive care Continue Protonix therapy Okay for diet, discussed low gas producing diet including low lactose with the patient and his family Plan for EGD tomorrow for further evaluation, the patient has been cleared by the cardiology service for the procedure and all the risks, benefits and side effects of the procedure have been discussed with him and his family at length with all her questions answered Nothing to eat after midnight Patient will need biopsy of his right hepatic liver mass, imaging suspicious of hepatocellular carcinoma and AFP greater than 500 highly concerning for malignant process Oncology service following the patient Thank you for allowing us to participate in the care of the patient
[2019-10-27] MEDS: MORPHINE SULFATE 2 MG/ML SYRINGE IVP PRN (04:41)
[2019-10-27 06:19] VITALS: PULSE 75; TEMP 98.6
[2019-10-27] MEDS: PANTOPRAZOLE 40 MG/10 ML VIAL IVP SCH (07:23)
[2019-10-27] MEDS: HEPARIN SODIUM,PORCINE 5,000 UNIT/ML 1 ML VIAL SQ SCH ×2 (07:24→07:27)
[2019-10-27] MEDS: SUCRALFATE 1 GM TAB PO SCH (07:27)
[2019-10-27] MEDS ORDERED: IV FLUID CONTINUATION 1,000 ML IV ONE (07:56)
[2019-10-27] MEDS ORDERED: PROPOFOL 10 MG/ML 20 ML VIAL IV ONE (07:59)
[2019-10-27] MEDS ORDERED: LIDOCAINE 1% INJ 10MG/ML (20 ML MDV) ONE (07:59)
--- NOTE | 2019-10-27 08:23 | P.PCN ---
Date of Procedure: 10/27/19 Description of Procedure: BRIEF HISTORY: 89-year-old male with multiple medical comorbidities including hypertension, nephrolithiasis, TIA, GERD, BPH, prior cholecystectomy, liver cirrhosis which is biopsy-proven presents to the hospital with a constellation of symptoms including abdominal pain, bloating and distention and abnormal CT imaging of the abdomen. The patient's has had symptoms of bloating, distention and gas which have been going on for the past few months. The patient feels that there is an association with initiation of metoprolol therapy in the outpatient setting in his symptoms. He often feels bloated with frequent belching and flatus and reports epigastric pain. The patient was started on Protonix therapy with improvement in his symptoms. He reports some nausea but no vomiting. Denies any signs or symptoms of GI bleed with no coffee-ground emesis, hematochezia or melena. No prior endoscopy with either EGD or colonoscopy. Laboratory evaluation on presentation significant for WBC 6.2, hemoglobin 12.1, platelet count 240,000, alkaline phosphatase 502, total bilirubin 1.1, AST 113 and ALT 92. GGT found to be arranged 76, amylase 46 and lipase 69 with a AFP greater than 500. The patient did have a computed tomography scan of the abdomen was significant for a 7 cm right hepatic mass concerning for hepatocellular carcinoma. PROCEDURE PERFORMED: Esophagogastroduodenoscopy with biopsy. PREOPERATIVE DIAGNOSIS: Epigastric abdominal pain, bloating and distention. ESTIMATED BLOOD LOSS: Minimal. IV sedation per anesthesia. PROCEDURE: After informed consent was obtained, the patient was brought into the endoscopy unit. IV sedation was administered by Anesthesia under continuous monitoring. Initially the Olympus GIF-190 video endoscope was inserted into the mouth. Esophagus intubated without any difficulty. It was gradually advanced into the stomach and duodenum and carefully examined. The bulb and the second part of the duodenum appeared normal, with biopsies taken to rule out celiac sprue. The scope at this time was withdrawn to the stomach, adequately insufflated with air, and upon careful examination, mucosa of the antrum, body, cardia and the fundus appeared normal, except for some mild scattered erythema in the antrum and body suggestive of bile gastritis with biopsies taken. The scope was then withdrawn into the esophagus. The GE junction was located at 42 cm from the incisors. The esophagus appeared normal. There were no erosions, esophageal varices or ulcerations seen and the patient tolerated the procedure well. IMPRESSION: 1. Mild gastritis antrum and body, biopsied. 2. Duodenal biopsies to rule out celiac sprue. RECOMMENDATIONS: The findings of this examination were discussed with the patient. Okay to resume diet. Okay to resume medications. Await pathology from biopsies. Patient will need to follow-up after discharge for biopsy of liver mass to rule out HCC. Otherwise extensive discussion with the patient and his family yesterday about dietary intolerances as possible source of symptoms of gas, bloating and distention. Continue PPI therapy.
[2019-10-27 08:42] VITALS: BP 125/65; RESP 18
--- NOTE | 2019-10-27 12:10 | P.DS ---
Providers Date of admission: 10/25/19 17:44 Attending physician: Mary Connell MD Consults: 10/25/19 17:45 Consult Physician Routine Consulting Provider: Josh Pelayo Consult Reason/Comments: Abdominal pain nausea Do you want consulting provider notified?: Yes Consult Physician Routine Consulting Provider: Violeta Vanegas Consult Reason/Comments: Abdominal pain Do you want consulting provider notified?: Yes 10/26/19 09:33 Consult Physician Routine Consulting Provider: Zackery Soto Consult Reason/Comments: hepatocellular ca Do you want consulting provider notified?: Yes 10/26/19 09:54 Consult Physician Routine Consulting Provider: Tracie Sarabia Consult Reason/Comments: positive stress in Jul, unable to valeria lopressor Do you want consulting provider notified?: Yes Primary care physician: [facility] Course: This is an 89-year-old male one of Dr. Dawson with past medical history significant for hypertension and hypertensive cardio vascular disease, history of kidney stone, TIA, GERD, enlarged prostate in January 2018, patient underwent cholecystectomy in the same time he had liver biopsy which was positive for cirrhosis. At that time there was no mass seen on the liver. Patient had a dobutamine stress test done in July 2019 that was positive. Patient was placed on Lopressor but apparently was unable to tolerate this. Family states that ever since he started the Lopressor which she only took for a brief period time he has had increasing abdominal pain with GERD symptoms so severe that he had to stop the Lopressor. He has had significant abdominal pain since August. Patient was seen at [facility] 2 days ago and had a CAT scan done that did show a liver mass. He was then sent to Dr. Hays's office and after that sent to [facility]. Patient complains of nausea, no vomiting, no coffee-ground emesis, no blood or black tarry stools. He states he passes a lot of gas. Pain to his abdomen is usually generalized and it moves around but the last day or 2 has been staying in the epigastric area. He has tried Maalox and Pepto-Bismol and these do nothing for him. He's also tried [place] water that was recommended without any improvement. He is agreeable to try a GI cocktail. He states he Does get some relief with Protonix. Daughter relates that they've been told that he has ulcer but has not had an EGD. Patient came into [facility] emergency center for evaluation. AST 126, ALT 47, phosphatase 545. Electrolytes within normal limits, WBC 8.1, hemoglobin 11.6, platelet count 254, BUN 27, creatinine 0.99. ProBNP 201, lactic acid 1.1. GGT 376. CAT scan of the abdomen and pelvis with contrast revealed a 7 cm hepatic mass consistent with hepatocellular cancer. Patient was afebrile, heart rate 87, blood pressure 115/70, pulse ox 94% on room air. The patient was placed on the MedSur floor and consult requested with GI and general surgery. Consults added for Dr. Soto and Dr. Sarabia. Discharge diagnosis 1. Epigastric pain secondary to gastritis, gastroesophageal reflux disease. 2. 7 cm hepatic mass consistent with hepatocellular carcinoma. 3. Elevated liver function tests with obstructive pattern sec to HCC 4. Possible coronary artery disease with abnormal stress test July 2019. 5. History of TIA 8 6. Hypertension and hypertensive cardiovascular disease. 7. Severe GERD. 8. BPH. Disposition - home with home care Patient Condition at Discharge: Good Plan - Discharge Summary Discharge Rx Participant: No New Discharge Prescriptions: New Sucralfate [Carafate] 1 gm PO AC-TID #90 tab Aspirin EC [Ecotrin Low Dose] 81 mg PO DAILY #30 tablet. Continue amLODIPine BES/OLMESARTAN MED [Elsa 10-20 mg Tablet] 1 tab PO HS@1700 Loratadine 10 mg PO HS@1700 Lidocaine HCl [Aspercreme Lidocaine] 1 applic TOPICAL DAILY PRN PRN Reason: NECK PAIN Changed Pantoprazole Sodium [Protonix] 40 mg PO AC-BRKFST #30 tab Discontinued Aspirin EC [Ecotrin Low Dose] 81 mg PO HS@1700 Discharge Medication List amLODIPine BES/OLMESARTAN MED [Elsa 10-20 mg Tablet] 1 tab PO HS@1700 01/15/15 [History] Loratadine 10 mg PO HS@1700 12/16/16 [History] Lidocaine HCl [Aspercreme Lidocaine] 1 applic TOPICAL DAILY PRN 10/25/19 [History] Aspirin EC [Ecotrin Low Dose] 81 mg PO DAILY #30 tablet. 10/27/19 [Rx] Pantoprazole Sodium [Protonix] 40 mg PO AC-BRKFST #30 tab 10/27/19 [Rx] Sucralfate [Carafate] 1 gm PO AC-TID #90 tab 10/27/19 [Rx] Follow up Appointment(s)/Referral(s): Rivas Dawson MD [Primary Care Provider] - 1 Week Patient Instructions/Handouts: Acute Abdominal Pain (DC), Upper Endoscopy (DC) Activity/Diet/Wound Care/Special Instructions: Scheduled for OP US guided liver bx on 11-07-19 RN will call you at home with further details. hold aspirin 7 days prior to procedure Discharge Disposition: HOME WITH HOME HEALTH SERVICES
== END 2019-10-27 12:32 | disposition home health service (06) ==
LOC: EC 15:04 → 6NMEDSUR 17:44
PROVIDERS: ADMIT Internal Medicine; ATTEND Internal Medicine
DX: K29.50 Unspecified chronic gastritis without bleeding (principal); K21.9 Gastro-esophageal reflux disease without esophagitis; R16.0 Hepatomegaly, not elsewhere classified; K74.60 Unspecified cirrhosis of liver; R94.39 Abnormal result of other cardiovascular function study; Z86.73 Personal history of transient ischemic attack (TIA), and cerebral infarction without residual deficits; I11.9 Hypertensive heart disease without heart failure; N40.0 Benign prostatic hyperplasia without lower urinary tract symptoms; R94.8 Abnormal results of function studies of other organs and systems; E66.9 Obesity, unspecified; Z68.26 Body mass index [BMI] 26.0-26.9, adult; Z79.899 Other long term (current) drug therapy; Z79.82 Long term (current) use of aspirin; Z88.8 Allergy status to other drugs, medicaments and biological substances; Z88.5 Allergy status to narcotic agent; Z87.442 Personal history of urinary calculi; Z87.19 Personal history of other diseases of the digestive system; Z90.49 Acquired absence of other specified parts of digestive tract; Z98.42 Cataract extraction status, left eye; Z98.41 Cataract extraction status, right eye; Z83.3 Family history of diabetes mellitus
CPT/HCPCS: 96376 ×3; 96361 ×3; 96372; 96375; 96374; 99285; 36415; 93005; 88305; 83880; 80053 ×2; 82150; 82977; 83605; 83690; 84484; 85025 ×2; 85610; 85730; 81001; 82105; 76705; 74177; 78306; 43239; G0378 ×3; A9503; J1644; J2001; J2270 ×3; J2704; C9113 ×3; Q9967

== ENCOUNTER → 2019-11-30 | Outpatient (CLI) | payer BC ==
--- NOTE | 2019-11-30 14:25 | XR ---
EXAMINATION TYPE: XR chest 2V DATE OF EXAM: 11/30/2019 COMPARISON: 10/07/2019 HISTORY: Cough and congestion TECHNIQUE: Frontal and lateral views of the chest are obtained. FINDINGS: There is no focal air space opacity, pleural effusion, or pneumothorax seen. The cardiac silhouette size is rotated and similar to the prior. The osseous structures are intact. Generalized osseous demineralization. Mild degenerative change of the thoracic spine. IMPRESSION: No acute cardiopulmonary process.
--- NOTE | 2019-11-30 15:25 | US ---
EXAMINATION TYPE: US abdomen complete DATE OF EXAM: 11/30/2019 COMPARISON: Outside MRI dated 11/07/2019 CLINICAL HISTORY: R06.02,R10.9,R17. EXAM MEASUREMENTS: Liver Length: 15.4 cm Gallbladder Wall: Surgically absent CBD: 0.3 cm Spleen: 10.0 cm Right Kidney: 9.1 x 5.2 x 4.3 cm Left Kidney: 10.2 x 5.5 x 4.5 cm Moderate perihepatic ascites. Patient has large abdomen and limited mobility, technically difficult study. Pancreas: Obscured by bowel gas Liver: innumerable masses, largest measuring 6.4 x 6.4 x 6.2cm. This appears to correspond to a mass that measured 6.7 x 6.6 cm on the outside MR dated 11/07/2019. Gallbladder: Surgically absent Evidence for sonographic Hinds's sign: no CBD: limited visualization, does not appear dilated Spleen: wnl Right Kidney: Inferior pole obscured by bowel gas Left Kidney: partially obscured by overlying bowel gas, cysts noted largest measuring 5.8 x 6.2 x 5 .9cm Upper IVC: not well visualized Abd Aorta: Obscured by overlying bowel gas The intrahepatic portion of the IVC and proximal abdominal aorta are within normal limits. Common jane e duct is unremarkable. The visualized portions of the pancreas are homogenous. The spleen is unrem arkable. Kidneys are symmetric and free of hydronephrosis. IMPRESSION: 1. Innumerable hepatic lesions the largest of which measures approximately 6.4 x 6.4 x 6.2 cm and is compared to a lesion on the exam of 11/07/2019 and measured 6.7 x 6.6 cm, however it is difficult to as certain the exact level and obliquity of measurement and direct comparison with MR would be preferred in evaluation for response to chemotherapy. 2. Moderate perihepatic ascites. 3. Large left renal cyst is incidentally noted measuring 6.2 cm.
== END | disposition home or self-care (01) ==
LOC: RADUSWWP 14:00
PROVIDERS: ATTEND Internal Medicine Hematology & Oncology
DX: C22.0 Liver cell carcinoma (principal); N28.1 Cyst of kidney, acquired; K76.9 Liver disease, unspecified; R18.8 Other ascites; R06.02 Shortness of breath
CPT/HCPCS: 71046; 76700

== ENCOUNTER 2019-12-02 12:04 | Inpatient (IN) | payer MEDICARE, BC ==
[2019-12-02] MEDS ORDERED: ONDANSETRON 4 MG/2 ML VIAL IVP STA (12:26)
[2019-12-02] MEDS ORDERED: MORPHINE SULFATE 4 MG/ML SYRINGE IV STA (12:26)
[2019-12-02] MEDS ORDERED: SODIUM CHLORIDE 0.9% 1,000 ML IV STA (12:26)
[2019-12-02] MEDS ORDERED: FAMOTIDINE 20 MG/2 ML VIAL IV STA (12:27)
--- NOTE | 2019-12-02 12:29 | ED ---
General Adult HPI - General Chief complaint: Weakness Stated complaint: Pain,Cancer Time Seen by Provider: 12/02/19 12:07 Source: patient, family, RN notes reviewed Mode of arrival: wheelchair Limitations: no limitations - History of Present Illness Initial comments: Patient is a pleasant 89-year-old male presenting to the emergency Department with complaints of generalized fatigue. Patient recently diagnosed with liver cancer and metastasis. Patient just started treatment 2-3 weeks ago. Patient has had quite a bit of fatigue since that time. Patient has nausea and decreased oral intake. No vomiting. Patient did have an episode of diarrhea a few days ago however that has resolved. Patient does have swelling of the abdomen. Patient has generalized pain. Patient has had some leg swelling as well. No dyspnea. - Related Data Home Medications Medication Instructions Recorded Confirmed amLODIPine BES/OLMESARTAN MED 1 tab PO HS@1700 01/15/15 12/02/19 [Elsa 10-20 mg Tablet] Loratadine 10 mg PO HS@1700 12/16/16 12/02/19 Nexavar 200mg 200 mg PO BID 12/02/19 12/02/19 Nitroglycerin Sl Tabs [Nitrostat] 0.4 mg SUBLINGUAL Q5M PRN 12/02/19 12/02/19 Omeprazole 20 mg PO BID PRN 12/02/19 12/02/19 Ondansetron [Zofran] 4 mg PO Q8H PRN 12/02/19 12/02/19 Allergies Allergy/AdvReac Type Severity Reaction Status Date / Time temazepam [From Restoril] AdvReac Unknown "Made him Verified 12/02/19 13:38 Loopy" tramadol AdvReac Unknown Unknown- Verified 12/02/19 13:38 Daughter does not want him to have. metoprolol AdvReac Nausea Verified 12/02/19 13:41 Review of Systems ROS Statement: Those systems with pertinent positive or pertinent negative responses have been documented in the HPI. ROS Other: All systems not noted in ROS Statement are negative. Constitutional: Denies: fever, chills Eyes: Denies: eye pain ENT: Denies: ear pain Respiratory: Denies: cough, dyspnea Cardiovascular: Denies: chest pain Endocrine: Reports: fatigue Gastrointestinal: Reports: as per HPI, nausea. Denies: vomiting Genitourinary: Denies: dysuria Musculoskeletal: Denies: back pain Skin: Denies: rash Neurological: Denies: confusion Past Medical History Past Medical History: Cancer, CVA/TIA, GERD/Reflux, Hypertension Additional Past Medical History / Comment(s): HX RENAL CALCULUS, TIA 7-8 yrs ago-, "sluggy gall bladder", elevated liver enzymes in past, Liver Cancer 11/2019 History of Any Multi-Drug Resistant Organisms: None Reported Past Surgical History: Cholecystectomy Additional Past Surgical History / Comment(s): colonoscopy, jane cataracts Past Anesthesia/Blood Transfusion Reactions: No Reported Reaction Additional Past Anesthesia/Blood Transfusion Reaction / Comment(s): NO FAMILY HX KNOWN Past Psychological History: No Psychological Hx Reported Smoking Status: Never smoker Past Alcohol Use History: None Reported Past Drug Use History: None Reported - Past Family History Mother Family Medical History: Unable to Obtain Father Family Medical History: Unable to Obtain Daughter(s) Family Medical History: Diabetes Mellitus (patient has 2 daughters one with diabetes mellitus type 2.) Additional Family Medical History / Comment(s): Patient has 2 daughters one with diabetes mellitus type 2. Son(s) Family Medical History: No Reported History (patient has one son no major medical problems.) Additional Family Medical History / Comment(s): Patient has one son no major medical problems. General Exam Limitations: no limitations General appearance: alert, in no apparent distress Head exam: Present: normocephalic Eye exam: Present: PERRL, EOMI, scleral icterus ENT exam: Present: mucous membranes dry Neck exam: Present: normal inspection Respiratory exam: Present: normal lung sounds bilaterally Cardiovascular Exam: Present: regular rate, normal rhythm GI/Abdominal exam: Present: soft, distended (Ascites). Absent: tenderness Extremities exam: Present: pedal edema. Absent: calf tenderness Neurological exam: Present: alert. Absent: motor sensory deficit Expanded Motor strength exam: RUE: 5, LUE: 5, RLE: 5, LLE: 5 Psychiatric exam: Present: normal affect, normal mood Skin exam: Present: other (Mild jaundice) Course Vital Signs 12/02/19 12/02/19 12:07 13:17 Temperature 97.7 F Pulse Rate 84 79 Respiratory 20 18 Rate Blood Pressure 111/67 116/69 O2 Sat by Pulse 97 Oximetry EKG Findings - EKG Comments: EKG Findings:: Normal sinus rhythm at 80. WV 162. QRS 76. QT 372. QTC 429 pe r left axis. Septal Q waves. Inferior Q waves. No acute ST change. Medical Decision Making - Medical Decision Making Patient reevaluated and resting comfortably in bed. Patient and family updated on results and plan. Case discussed with Dr. Lux, covering for oncology who does recommend medical admission. Also consult with interventional radiology for paracentesis. Case also discussed with Dr. Yin, who will admit covering for Dr. Dawson. He also requests consult with gastroenterology. - Lab Data Result diagrams: 12/02/19 13:16 12/02/19 13:16 Lab Results 12/02/19 12/02/19 12/02/19 Range/Units 13:16 13:16 13:16 WBC 12.8 H (3.8-10.6) k/uL RBC 4.23 L (4.30-5.90) m/uL Hgb 12.0 L (13.0-17.5) gm/dL Hct 37.8 L (39.0-53.0) % MCV 89.5 (80.0-100.0) fL MCH 28.3 (25.0-35.0) pg MCHC 31.6 (31.0-37.0) g/dL RDW 18.7 H (11.5-15.5) % Plt Count 196 (150-450) k/uL Neutrophils % 85 % Lymphocytes % 10 % Monocytes % 3 % Eosinophils % 1 % Basophils % 0 % Neutrophils # 10.9 H (1.3-7.7) k/uL Lymphocytes # 1.3 (1.0-4.8) k/uL Monocytes # 0.4 (0-1.0) k/uL Eosinophils # 0.1 (0-0.7) k/uL Basophils # 0.0 (0-0.2) k/uL Anisocytosis Slight PT 12.5 H (9.0-12.0) sec INR 1.2 H (<1.2) APTT 27.4 (22.0-30.0) sec Sodium 132 L (137-145) mmol/L Potassium 4.9 (3.5-5.1) mmol/L Chloride 101 (98-107) mmol/L Carbon Dioxide 21 L (22-30) mmol/L Anion Gap 10 mmol/L BUN 33 H (9-20) mg/dL Creatinine 0.98 (0.66-1.25) mg/dL Est GFR (CKD-EPI)AfAm 79 (>60 ml/min/1.73 sqM) Est GFR (CKD-EPI)NonAf 69 (>60 ml/min/1.73 sqM) Glucose 88 (74-99) mg/dL Calcium 8.0 L (8.4-10.2) mg/dL Phosphorus 2.9 (2.5-4.5) mg/dL Magnesium 2.4 H (1.6-2.3) mg/dL Total Bilirubin 5.9 H (0.2-1.3) mg/dL AST 442 H (17-59) U/L ALT 133 H (4-49) U/L Alkaline Phosphatase 1027 H (38-126) U/L Total Protein 6.5 (6.3-8.2) g/dL Albumin 2.7 L (3.5-5.0) g/dL - Radiology Data Radiology results: image reviewed (Chest x-ray shows mild cardiac megaly) Disposition Clinical Impression: Ascites, Liver failure, Liver mass, Dehydration Disposition: ADMITTED IP TO THIS [facility] Condition: Serious Is patient prescribed a controlled substance at d/c from ED?: No Referrals: Rivas Dawson MD [Primary Care Provider] - 1-2 days Decision Time: 14:32
--- NOTE | 2019-12-02 13:31 | XR ---
EXAMINATION TYPE: XR chest 2V DATE OF EXAM: 12/02/2019 HISTORY: Weakness. REFERENCE: Previous study dated 11/30/2019 FINDINGS: The heart is mildly prominent. The lungs are clear. Pleural space are clear. IMPRESSION: MILD CARDIOMEGALY.
[2019-12-02 13:32] LABS: Anisocytosis Slight; Basophils % (A) 0 %; Eosinophils # (A) 0.1 k/uL (0-0.7); Eosinophils % (A) 1 %; HCT 37.8 % (39.0-53.0); Lymphocytes # (A) 1.3 k/uL (1.0-4.8); Lymphocytes % (A) 10 %; MCH 28.3 pg (25.0-35.0); MCHC 31.6 g/dL (31.0-37.0); MCV 89.5 fL (80.0-100.0); Mean Platelet Volume 7.3; Monocytes # (A) 0.4 k/uL (0-1.0); Monocytes % (A) 3 %; Neutrophils # (A) 10.9 k/uL (1.3-7.7); Neutrophils % (A) 85 %; Platelet Count 196 k/uL (150-450); RBC 4.23 m/uL (4.30-5.90); RDW 18.7 % (11.5-15.5); WBC 12.8 k/uL (3.8-10.6)
[2019-12-02 13:34] LABS: INR 1.2 (<1.2); Partial Thromboplastin Time 27.4 sec (22.0-30.0); Prothrombin Time 12.5 sec (9.0-12.0)
[2019-12-02 13:37] LABS: Albumin 2.7 g/dL (3.5-5.0); Magnesium 2.4 mg/dL (1.6-2.3); Phosphorus 2.9 mg/dL (2.5-4.5); Potassium 4.9 mmol/L (3.5-5.1); Total Bilirubin 5.9 mg/dL (0.2-1.3); Total Protein 6.5 g/dL (6.3-8.2)
[2019-12-02] MEDS ORDERED: NALOXONE 0.4 MG/ML 1 ML VIAL IV PRN (14:37)
[2019-12-02 14:54] LABS: Appearance,Urine Clear (Clear); Bacteria,Urine Rare /hpf; Bilirubin,Urine 1+ (Negative); Blood,Urine Negative (Negative); Color,Urine Dark Yellow; Glucose,Urine (UA) Negative (Negative); Ketones,Urine Negative (Negative); Leukocyte Esterase,Urine Negative (Negative); Mucus,Urine Occasional /hpf; Nitrite,Urine Negative (Negative); PH, Urine 5.5 (5.0-8.0); Protein,Urine 1+ (Negative); RBC,Urine 1 /hpf (0-5); Specific Gravity,Urine 1.022 (1.001-1.035); Squamous Epithelial Cell,Urine <1 /hpf (0-4); WBC,Urine 1 /hpf (0-5)
[2019-12-02] MEDS: SODIUM CHLORIDE 0.9% 1,000 ML IV SCH ×2 (15:47→22:16)
[2019-12-02] MEDS ORDERED: NITROGLYCERIN SL TABS 0.4 MG TAB SUBLINGUAL PRN (17:07)
[2019-12-02] MEDS ORDERED: ONDANSETRON 4 MG TAB PO PRN (17:07)
[2019-12-02] MEDS ORDERED: NON FORMULARY DRUG (Omeprazole [Omeprazole] 20 MG) PO PRN (17:07)
[2019-12-02] MEDS: NEXAVAR 200 MG PO SCH (22:17)
[2019-12-03 07:17] LABS: Albumin 2.1 g/dL (3.5-5.0); Calcium 7.2 mg/dL (8.4-10.2); Potassium 4.4 mmol/L (3.5-5.1); Total Bilirubin 5.4 mg/dL (0.2-1.3); Total Protein 5.6 g/dL (6.3-8.2)
[2019-12-03 07:18] LABS: INR 1.3 (<1.2); Prothrombin Time 13.3 sec (9.0-12.0)
[2019-12-03] MEDS: PANTOPRAZOLE 40 MG/10 ML VIAL IV SCH (08:01)
[2019-12-03] MEDS: NEXAVAR 200 MG PO SCH (08:01)
[2019-12-03] MEDS ORDERED: ONDANSETRON 4 MG/2 ML VIAL IVP PRN (09:43)
[2019-12-03] MEDS ORDERED: IOPAMIDOL CONTRAST (ORAL USE) VIAL PO PRN (09:44)
--- NOTE | 2019-12-03 09:46 | US ---
EXAMINATION TYPE: US abdomen limited DATE OF EXAM: 12/03/2019 COMPARISON: US 11/30/19 CLINICAL HISTORY: ascites. TECHNIQUE/FINDINGS: Targeted grayscale ultrasound was performed of the abdomen to evaluate for ascite s only. Mild ascites is seen in the right lower quadrant and in the flank areas. IMPRESSION: Mild abdominal ascites.
--- NOTE | 2019-12-03 11:29 | CT ---
EXAMINATION TYPE: CT abdomen w con DATE OF EXAM: 12/03/2019 COMPARISON: CT abdomen and pelvis October 25, 2019 and older CTs HISTORY: Upper Abdominal pain and distention. Recent diagnosis of liver cancer. CT DLP: 1121.2 mGycm, Automated Exposure Control for Dose Reduction was Utilized. CONTRAST: CT scan of the abdomen is performed with oral and with IV Contrast, patient injected with 100 mL of I sovue 300. FINDINGS: LUNG BASES: New small to tiny left greater than right pleural effusions and associated bibasilar line ar scarring and/or atelectasis. LIVER/GB: Since prior studies there is further diminished size to the liver is lobulated peripheral c ontour and increased heterogeneous hypodense lesions diffusely. Dominant heterogeneous round lesion i n the right hepatic lobe measures 6.7 x 6.1 cm image 25 not significantly changed in size from most r ecent CT with areas of hyperdensity redemonstrated. Gallbladder surgically absent. Increasing surroun ding ascites. Patent portal vein with all dilatation. New round Low density area in the suprahepatic IVC axial image 14 and coronal image 58 suspicious for partial occlusive thrombus. PANCREAS: No significant abnormality is seen. SPLEEN: Spleen stable in size measuring upper limits of normal With new adjacent ascites. ADRENALS: No significant abnormality is seen. KIDNEYS: Exophytic simple appearing 6.5 cm cyst lower pole of the left kidney redemonstrated. There a re few small nonobstructing left renal calculi again seen. Symmetric cortical medullary uptake and ex cretion without hydronephrosis noted bilaterally. BOWEL: The oral contrast does not reach colonic level making evaluation of distal bowel suboptimal. S tomach shows poor distention with mild/moderate wall thickening in the fundus and adjacent ascites. S ome scattered small bowel loops show mild wall thickening. There is more moderate wall thickening of the right and transverse colon. LYMPH NODES: No greater than 1cm abdominal abdominal lymph nodes are appreciated. OSSEOUS STRUCTURES: Multilevel spurring in the thoracic spine. OTHER: Moderate calcified plaque of the ectatic abdominal aorta extends into branch vessels. There is small to moderate amount of abdominal ascites and mesenteric edema. IMPRESSION: 1. Progression of hepatic disease thought present with now diffuse involvement. Now fairly moderate a mount of abdominal ascites progressed from most recent CT. There is concern for partial occlusive thr ombus in the suprahepatic IVC. A [place] level critical message alert has been initiated for Norman Yin MD via the [employer] Critical Results System on 12/03/2019 11:27 AM. This message alert has been sent to Norman Yin MD via the preferences provided by the clinician for the receipt of Radiology Critical Findings. Message ID [id number].
--- NOTE | 2019-12-03 14:18 | P.HPIM ---
History of Present Illness H&P Date: 12/03/19 This is an 89-year-old male one of Dr. Dawson with past medical history significant for hypertension and hypertensive cardio vascular disease, history of kidney stone, TIA, GERD, enlarged prostate in January 2018, patient underwent cholecystectomy in the same time he had liver biopsy which was positive for cirrhosis. At that time there was no mass seen on the liver. Patient had a dobutamine stress test done in July 2019 that was positive. Patient was placed on Lopressor but apparently was unable to tolerate this. He had increasing abdominal pain with GERD symptoms so severe that he had to stop the Lopressor. He had significant abdominal pain since August. In October, patient was seen at [facility] and had a CAT scan done that did show a liver mass. He then presented to [facility] on October 26 and was admitted underwent a repeat CAT scan of the abdomen and pelvis that revealed a 7 cm hepatic mass consistent with cancer. Patient has been following with Dr. Hoskins and is currently on Nexavar. He had Patient complains of fatigue, nausea, decreased oral intake, no vomiting. Patient had episode of diarrhea a few days ago that resolved. He complains of increased abdominal girth and leg swelling. Family state that he has had some shortness of breath. He has been eating very little. Patient came into [facility] emergency center for evaluation. He was afebrile, heart rate 84, blood pressure 111/67 pulse ox 97% on room air. EKG was in normal sinus rhythm with no acute ST changes. WBC 12.8, hemoglobin 12.0, platelet count 196. Sodium 132, potassium 4.9, chloride 101, CO2 21, BUN 33 and creatinine 0.98, blood sugar 88. Magnesium 2.4, total bilirubin 5.9, AST 442, ALT 133, alkaline phosphatase 1027, albumin 2.7. Chest x-ray revealed mild cardiomegaly. Abdominal ultrasound revealed mild abdominal ascites. CAT scan of the abdomen and pelvis revealed progression of hepatic disease present with now diffuse involvement. Now fairly moderate amount of abdominal ascites progressed from most recent CT. There is concern for partial occlusive thrombus in the suprahepatic IVC. Patient has been admitted to the [facility] floor, consult with oncology, GI and interventional radiology for paracentesis. Review of Systems Constitutional: Reports anorexia, Reports fatigue, Reports malaise, Reports poor appetite, Reports weakness, Denies chills, Denies fever Eyes: denies blurred vision, denies pain Ears, nose, mouth and throat: Denies dysphagia, Denies nasal congestion, Denies nasal discharge, Denies vertigo Cardiovascular: Reports dyspnea on exertion, Reports edema, Reports leg edema, Denies chest pain, Denies lightheadedness, Denies shortness of breath, Denies syncope Respiratory: Reports dyspnea, Denies cough, Denies cough with sputum, Denies excessive sputum, Denies hemoptysis, Denies home oxygen, Denies respiratory infections, Denies wheezing Gastrointestinal: Reports abdominal pain, Reports bloating, Reports early satiety, Reports jaundice, Reports loss of appetite, Denies diarrhea, Denies nausea, Denies vomiting Genitourinary: Denies dysuria, Denies urinary frequency, Denies urinary retention Musculoskeletal: Denies frequent falls, Denies gait dysfunction, Denies muscle weakness, Denies myalgias Integumentary: Denies pruritus, Denies rash, Denies wounds Neurological: Denies change in mentation, Denies change in speech, Denies numbness, Denies weakness Psychiatric: Denies anxiety, Denies depression Endocrine: Denies fatigue, Denies weight change Past Medical History Past Medical History: Cancer, CVA/TIA, GERD/Reflux, Hypertension Additional Past Medical History / Comment(s): HX RENAL CALCULUS, TIA 7-8 yrs ago-, "sluggy gall bladder", elevated liver enzymes in past, Liver Cancer 11/2019 History of Any Multi-Drug Resistant Organisms: None Reported Past Surgical History: Cholecystectomy Additional Past Surgical History / Comment(s): colonoscopy, jane cataracts Past Anesthesia/Blood Transfusion Reactions: No Reported Reaction Additional Past Anesthesia/Blood Transfusion Reaction / Comment(s): NO FAMILY HX KNOWN Past Psychological History: No Psychological Hx Reported Smoking Status: Never smoker Past Alcohol Use History: None Reported Past Drug Use History: None Reported - Past Family History Mother Family Medical History: Unable to Obtain Additional Family Medical History / Comment(s): Patient's mother and father both when he was very young and he lived on his own starting at age 16. Patient does have some brothers but he and family do not know any other medical history. Father Family Medical History: Unable to Obtain Daughter(s) Family Medical History: Diabetes Mellitus Additional Family Medical History / Comment(s): Patient has 2 daughters one with diabetes mellitus type 2. Son(s) Family Medical History: No Reported History Additional Family Medical History / Comment(s): Patient has one son that has from lymphoma. Medications and Allergies Home Medications Medication Instructions Recorded Confirmed Type amLODIPine BES/OLMESARTAN MED 1 tab PO HS@1700 01/15/15 12/02/19 History [Elsa 10-20 mg Tablet] Loratadine 10 mg PO HS@1700 12/16/16 12/02/19 History Nexavar 200mg 200 mg PO BID 12/02/19 12/02/19 History Nitroglycerin Sl Tabs [Nitrostat] 0.4 mg SUBLINGUAL Q5M PRN 12/02/19 12/02/19 History Omeprazole 20 mg PO BID PRN 12/02/19 12/02/19 History Ondansetron [Zofran] 4 mg PO Q8H PRN 12/02/19 12/02/19 History Allergies Allergy/AdvReac Type Severity Reaction Status Date / Time temazepam [From Restoril] AdvReac Unknown "Made him Verified 12/02/19 13:38 Loopy" tramadol AdvReac Unknown Unknown- Verified 12/02/19 13:38 Daughter does not want him to have. metoprolol AdvReac Nausea Verified 12/02/19 13:41 Physical Exam Vitals: Vital Signs Temp Pulse Pulse Resp BP BP Pulse Ox 12/03/19 07:00 97.9 F 76 16 112/64 93 L 12/03/19 02:00 97.9 F 82 16 110/69 94 L 12/02/19 19:50 97.5 F L 76 18 110/71 94 L 12/02/19 15:57 98 F 73 16 130/70 95 12/02/19 14:32 98.2 F 73 18 113/71 96 12/02/19 13:17 79 18 116/69 12/02/19 12:07 97.7 F 84 20 111/67 97 Intake and Output 12/02/19 12/03/19 12/03/19 22:59 06:59 14:59 Other: # Voids 2 4 Weight 81.193 kg - Constitutional General appearance: average body habitus, mild distress - EENT Eyes: anicteric sclerae, EOMI, PERRLA, no ptosis, no scleral icterus, normal appearance ENT: hearing grossly normal, NA/AT, normal oropharynx, no thrush Ears: bilateral: normal - Neck Neck: no lymphadenopathy, normal ROM, no rigidity, no stridor, no thyromegaly Carotids: bilateral: upstroke normal Thyroid: bilateral: normal size - Respiratory Respiratory: bilateral: diminished, negative: dullness, rales, rhonchi, wheezing, prolonged expiration, prolonged inspiration - Cardiovascular Rhythm: regular Heart sounds: normal: S1, S2 Abnormal Heart Sounds: systolic murmur, no S3 Gallop, no S4 Gallop - Gastrointestinal General gastrointestinal: normal bowel sounds, soft, generalized tenderness, generalized ascites - Integumentary Integumentary: normal, normal turgor - Musculoskeletal Musculoskeletal: generalized weakness, strength equal bilaterally - Psychiatric Psychiatric: A&O x's 3, appropriate affect, intact judgment & insight Results CBC & Chem 7: 12/02/19 13:16 12/03/19 06:39 Labs: Abnormal Lab Results - Last 24 Hours (Table) 12/02/19 12/02/19 12/02/19 Range/Units 13:16 13:16 13:16 WBC 12.8 H (3.8-10.6) k/uL RBC 4.23 L (4.30-5.90) m/uL Hgb 12.0 L (13.0-17.5) gm/dL Hct 37.8 L (39.0-53.0) % RDW 18.7 H (11.5-15.5) % Neutrophils # 10.9 H (1.3-7.7) k/uL PT 12.5 H (9.0-12.0) sec INR 1.2 H (<1.2) Sodium 132 L (137-145) mmol/L Carbon Dioxide 21 L (22-30) mmol/L BUN 33 H (9-20) mg/dL Glucose (74-99) mg/dL Calcium 8.0 L (8.4-10.2) mg/dL Magnesium 2.4 H (1.6-2.3) mg/dL Total Bilirubin 5.9 H (0.2-1.3) mg/dL AST 442 H (17-59) U/L ALT 133 H (4-49) U/L Alkaline Phosphatase 1027 H (38-126) U/L Total Protein (6.3-8.2) g/dL Albumin 2.7 L (3.5-5.0) g/dL Urine Protein (Negative) Urine Bilirubin (Negative) Urine Bacteria (None) /hpf Urine Mucus (None) /hpf 12/02/19 12/03/19 12/03/19 Range/Units 14:36 06:39 06:39 WBC (3.8-10.6) k/uL RBC (4.30-5.90) m/uL Hgb (13.0-17.5) gm/dL Hct (39.0-53.0) % RDW (11.5-15.5) % Neutrophils # (1.3-7.7) k/uL PT 13.3 H (9.0-12.0) sec INR 1.3 H (<1.2) Sodium 133 L (137-145) mmol/L Carbon Dioxide 21 L (22-30) mmol/L BUN 26 H (9-20) mg/dL Glucose 68 L (74-99) mg/dL Calcium 7.2 L (8.4-10.2) mg/dL Magnesium (1.6-2.3) mg/dL Total Bilirubin 5.4 H (0.2-1.3) mg/dL AST 342 H (17-59) U/L ALT 98 H (4-49) U/L Alkaline Phosphatase 900 H (38-126) U/L Total Protein 5.6 L (6.3-8.2) g/dL Albumin 2.1 L (3.5-5.0) g/dL Urine Protein 1+ H (Negative) Urine Bilirubin 1+ H (Negative) Urine Bacteria Rare H (None) /hpf Urine Mucus Occasional H (None) /hpf Thrombosis Risk Factor Assmnt - DVT/VTE Prophylaxis DVT/VTE Prophylaxis: Pharmacologic Prophylaxis ordered - Choose All That Apply Any of the Below Risk Factors Present?: Yes Each Factor Represents 1 point: Obesity (BMI >25) Other Risk Factors: Yes Each Risk Factor Represents 3 Points: Age 75 years or older Thrombosis Risk Factor Assessment Total Risk Factor Score: 4 Thrombosis Risk Factor Assessment Level: Moderate Risk Assessment and Plan Plan: 1. Abdominal pain secondary to ascites. GI on consult, interventional radiology on consult for paracentesis. Computed tomography scan and abdominal ultrasound as above. 2. Hepatocellular carcinoma. Consult with oncology. Hold Nexavar 200 mg twice daily 3. Possible coronary artery disease with abnormal stress test July 2019. Patient reports that he is unable to tolerate Lopressor. 4. History of TIA 8 years ago with no residual. 5. Hypertension and hypertensive cardiovascular disease. Continue losartan 100 mg orally at bedtime and amlodipine 10 mg orally once every day. 6. Severe GERD. Continue patient on Protonix 40 mg daily. 7. DVT prophylaxis. SCDs and ERICKA hose. 8. GI prophylaxis. Continue PPI. 9. BPH. Monitor for urinary retention. Patient admitted to the hospital for a minimum of 2 night stay. CODE STATUS: Full code--discussed with patient and family Impression and plan of care have been directed as dictated by the signing physician. Sarah Damon nurse practitioner acting as scribe for signing ph ysician.
--- NOTE | 2019-12-03 16:00 | US ---
Therapeutic paracentesis. DATE OF EXAM: 12/03/2019 CLINICAL HISTORY: Ascites The procedure was discussed with the patient. The risks, complications, benefits, and alternatives we re discussed and any questions were answered. Informed consent was obtained. The patient was placed s upine on the ultrasound table and prepped and draped in the usual sterile fashion. All elements of maximal barrier technique were utilized. Under ultrasound guidance, access into the right lower quadrant was obtained, via the paracentesis catheter system and direct ultrasound guidanc e. Approximately 2.5 liters of straw-colored fluid was removed. The patient was stable throughout the pr ocedure and remained stable upon discharge from Department of Radiology. IMPRESSION: Successful therapeutic paracentesis under ultrasound guidance.
--- NOTE | 2019-12-03 16:10 | P.CONS ---
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 Hoskins who was seen at [facility] on in late October 2019. Patient had persistent abdominal pains, indigestion for at least 6 months, also associated with nausea, belching and abdominal distention and pain after eating. His symptoms seemed to progress after a laparoscopic cholecystectomy. He had an EGD with Dr. Talamantes without any pathological findings. Patient had lost 10-15 pounds in the last [address] showed a 7 cm right hepatic lobe mass, biopsy was delayed but eventually was performed 10/31/19, pathology revealing hepatocellular carcinoma. Patient was seen for his first office visit November 07. At that visit options of care were discussed. It was unclear at that time if the patient was resectable. He was evaluated by Dr. Levy and unfortunately was not a candidate for surgery or embolization. At 11/16 visit comfort vs oral TKI discussed. Pt and family opted for treatment. Nexavar was started at a 50% dose reduction. He was seen again on 11/30, provided with hydration, STAT US abd and CXR ordered, felt no obstruction so, paracentesis was ordered to be done this week. Pt and family instructed to come to the hospital if symptoms progressed over the weekend. It was discussed Tuesday that there was concern for rapid disease progression. Patient family reports progressive weakness, very poor oral intake, nausea, dry mouth, progressive abdominal distention, diarrhea, generalized discomfort and malaise so, they brought him to the emergency room. On admission patient has significantly elevated LFTs, alkaline phosphatase. His been started on fluids, interventional radiology has been consult it for ultrasound evaluation of the abdomen and possible paracentesis. Nexavar has been placed on hold. Patient is rather uncomfortable and agitated during examination. Everything was discussed with the family at the bedside. Review of Systems 14 point ROS is negative except as stated in HPI Past Medical History Past Medical History: Cancer, CVA/TIA, GERD/Reflux, Hypertension Additional Past Medical History / Comment(s): HX RENAL CALCULUS, TIA 7-8 yrs ago-, "sluggy gall bladder", elevated liver enzymes in past, Liver Cancer 11/2019 History of Any Multi-Drug Resistant Organisms: None Reported Past Surgical History: Cholecystectomy Additional Past Surgical History / Comment(s): colonoscopy, jane cataracts Past Anesthesia/Blood Transfusion Reactions: No Reported Reaction Additional Past Anesthesia/Blood Transfusion Reaction / Comm: NO FAMILY HX KNOWN Past Psychological History: No Psychological Hx Reported Smoking Status: Never smoker Past Alcohol Use History: None Reported Past Drug Use History: None Reported - Past Family History Mother Family Medical History: Unable to Obtain Father Family Medical History: Unable to Obtain Daughter(s) Family Medical History: Diabetes Mellitus Additional Family Medical History / Comment(s): Patient has 2 daughters one with diabetes mellitus type 2. Son(s) Family Medical History: No Reported History Additional Family Medical History / Comment(s): Patient has one son no major medical problems. Medications and Allergies Home Medications Medication Instructions Recorded Confirmed Type amLODIPine BES/OLMESARTAN MED 1 tab PO HS@1700 01/15/15 12/02/19 History [Elsa 10-20 mg Tablet] Loratadine 10 mg PO HS@1700 12/16/16 12/02/19 History Nexavar 200mg 200 mg PO BID 12/02/19 12/02/19 History Nitroglycerin Sl Tabs [Nitrostat] 0.4 mg SUBLINGUAL Q5M PRN 12/02/19 12/02/19 History Omeprazole 20 mg PO BID PRN 12/02/19 12/02/19 History Ondansetron [Zofran] 4 mg PO Q8H PRN 12/02/19 12/02/19 History Allergies Allergy/AdvReac Type Severity Reaction Status Date / Time temazepam [From Restoril] AdvReac Unknown "Made him Verified 12/02/19 13:38 Loopy" tramadol AdvReac Unknown Unknown- Verified 12/02/19 13:38 Daughter does not want him to have. metoprolol AdvReac Nausea Verified 12/02/19 13:41 Physical Exam Vitals: Vital Signs Temp Pulse Pulse Resp BP BP Pulse Ox 12/03/19 07:00 97.9 F 76 16 112/64 93 L 12/03/19 02:00 97.9 F 82 16 110/69 94 L 12/02/19 19:50 97.5 F L 76 18 110/71 94 L 12/02/19 15:57 98 F 73 16 130/70 95 12/02/19 14:32 98.2 F 73 18 113/71 96 12/02/19 13:17 79 18 116/69 12/02/19 12:07 97.7 F 84 20 111/67 97 Intake and Output 12/02/19 12/03/19 12/03/19 22:59 06:59 14:59 Other: # Voids 2 4 Weight 81.193 kg - Constitutional General appearance: average body habitus, mild distress - EENT very dry mucus membranes Eyes: EOMI, scleral icterus ENT: hearing grossly normal - Neck Neck: no lymphadenopathy - Respiratory labored respirations, increased RR, shallow Respiratory: bilateral: diminished - Cardiovascular Rhythm: regular Heart sounds: normal: S1, S2 Abnormal Heart Sounds: no systolic murmur, no diastolic murmur, no rub, no S3 Gallop, no S4 Gallop, no click, no other leg Peripheral Edema: bilateral: Trace - Gastrointestinal firmness to palpation, fullness of the upper quadrants General gastrointestinal: no absent bowel sounds, no decreased bowel sounds, distended, no hepatomegaly, no hyperactive bowel sounds, no normal bowel sounds, no organomegaly, no rigid, no scaphoid, no splenomegaly, tenderness, no umbilical hernia, no ventral hernia - Integumentary Integumentary: jaundiced - Neurologic Neurologic: CNII-XII intact - Musculoskeletal Musculoskeletal: generalized weakness - Psychiatric Alert, oriented to self, place, mild confusion during conversation, easily agitated Results CBC & Chem 7: 12/02/19 13:16 12/03/19 06:39 Labs: Abnormal Lab Results - Last 24 Hours (Table) 12/02/19 12/02/19 12/02/19 Range/Units 13:16 13:16 13:16 WBC 12.8 H (3.8-10.6) k/uL RBC 4.23 L (4.30-5.90) m/uL Hgb 12.0 L (13.0-17.5) gm/dL Hct 37.8 L (39.0-53.0) % RDW 18.7 H (11.5-15.5) % Neutrophils # 10.9 H (1.3-7.7) k/uL PT 12.5 H (9.0-12.0) sec INR 1.2 H (<1.2) Sodium 132 L (137-145) mmol/L Carbon Dioxide 21 L (22-30) mmol/L BUN 33 H (9-20) mg/dL Glucose (74-99) mg/dL Calcium 8.0 L (8.4-10.2) mg/dL Magnesium 2.4 H (1.6-2.3) mg/dL Total Bilirubin 5.9 H (0.2-1.3) mg/dL AST 442 H (17-59) U/L ALT 133 H (4-49) U/L Alkaline Phosphatase 1027 H (38-126) U/L Total Protein (6.3-8.2) g/dL Albumin 2.7 L (3.5-5.0) g/dL Urine Protein (Negative) Urine Bilirubin (Negative) Urine Bacteria (None) /hpf Urine Mucus (None) /hpf 12/02/19 12/03/19 12/03/19 Range/Units 14:36 06:39 06:39 WBC (3.8-10.6) k/uL RBC (4.30-5.90) m/uL Hgb (13.0-17.5) gm/dL Hct (39.0-53.0) % RDW (11.5-15.5) % Neutrophils # (1.3-7.7) k/uL PT 13.3 H (9.0-12.0) sec INR 1.3 H (<1.2) Sodium 133 L (137-145) mmol/L Carbon Dioxide 21 L (22-30) mmol/L BUN 26 H (9-20) mg/dL Glucose 68 L (74-99) mg/dL Calcium 7.2 L (8.4-10.2) mg/dL Magnesium (1.6-2.3) mg/dL Total Bilirubin 5.4 H (0.2-1.3) mg/dL AST 342 H (17-59) U/L ALT 98 H (4-49) U/L Alkaline Phosphatase 900 H (38-126) U/L Total Protein 5.6 L (6.3-8.2) g/dL Albumin 2.1 L (3.5-5.0) g/dL Urine Protein 1+ H (Negative) Urine Bilirubin 1+ H (Negative) Urine Bacteria Rare H (None) /hpf Urine Mucus Occasional H (None) /hpf Comments: pending abd US for possible paracentesis Chest x-ray: report reviewed Assessment and Plan (1) Liver failure Current Visit: Yes Status: Acute Priority: High Code(s): K72.90 - HEPATIC FAILURE, UNSPECIFIED WITHOUT COMA SNOMED Code(s): 44148012 (2) HCC (hepatocellular carcinoma) Narrative/Plan: 14 days of nexavar taken. Hold for possible cause/contribution to pt symptoms Current Visit: Yes Status: Acute Priority: High Code(s): C22.0 - LIVER CELL CARCINOMA SNOMED Code(s): 689365398 (3) Ascites Narrative/Plan: Secondary to disease or obstruction (work up ordered). US eval for paracentesis. Current Visit: Yes Status: Acute Priority: High Code(s): R18.8 - OTHER ASCITES SNOMED Code(s): 790171745 (4) Dehydration Narrative/Plan: Gentle hydration. Treat symptoms contributing to inability to tolerate oral intake Current Visit: Yes Status: Acute Priority: High Code(s): E86.0 - DEHYDRATION SNOMED Code(s): 09981730 Plan: Dr. Soto discussed with family the possibility of obstruction vs malignancy progression vs drug effect as cause of progressive liver decline. CT ordered to evaluate for obstruction vs disease. GI consulted. Nexavar has been stopped. Symptom management, hydration Attests: I have performed H&P and developed impression and plan of care for pt, discussed with dictator. I agree with dictated note, documented as a scribe.
[2019-12-03] MEDS ORDERED: amLODIPine 10 MG TAB PO SCH (17:00)
[2019-12-03] MEDS ORDERED: LOSARTAN 50 MG TAB PO SCH (17:00)
[2019-12-03] MEDS ORDERED: LORATADINE 10 MG TAB PO SCH (17:00)
[2019-12-03] MEDS: FUROSEMIDE 10 MG/ML 4 ML VIAL IV SCH (18:10)
[2019-12-03] MEDS: SODIUM CHLORIDE 0.9% 1,000 ML IV SCH ×2 (19:07→21:00)
[2019-12-03] MEDS: MORPHINE SULFATE 4 MG/ML SYRINGE IV PRN (20:11)
[2019-12-04 05:11] VITALS: TEMP 97.5
[2019-12-04] MEDS: FUROSEMIDE 10 MG/ML 4 ML VIAL IV SCH (08:31)
[2019-12-04] MEDS: PANTOPRAZOLE 40 MG/10 ML VIAL IV SCH (08:31)
--- NOTE | 2019-12-04 09:42 | P.CONS ---
History of Present Illness - Reason for Consult Consult date: 12/03/19 Abdominal pain, bloating, liver cancer Requesting physician: Norman Yin - Chief Complaint Abdominal pain, nausea, diarrhea - History of Present Illness 89-year-old male with multiple medical comorbidities including nephrolithiasis, prior TIA, GERD, hypertension and hepatocellular carcinoma diagnosed in 10/2018 who presented to the hospital with a constellation of symptoms including abdominal pain and bloating, nausea and diarrhea. Patient had been initiated on oral therapy for treatment as his disease was disease was deemed not amenable to surgical therapy or embolization. The patient has continued to become more weak with poor oral intake. He has developed frequent loose bowel movements as well as nausea. The patient has some evidence of fluid overload and was taken for paracentesis with over 2 L removed today. He denies any blood per rectum or signs or symptoms of GI bleeding. The patient is being managed by the oncology service in the outpatient setting. Review of Systems REVIEW OF SYSTEMS: CONSTITUTIONAL: Denies any fevers, chills, but does report fatigue. CARDIOVASCULAR: Denies any chest pain, palpitations high or low blood pressures RESPIRATORY: Denies any shortness of breath, hemoptysis or cough. GENITOURINARY: No dysuria or hematuria. MUSCULOSKELETAL: No focal weakness reported. SKIN: Denies any new rashes or lesions, jaundice or pallor. PSYCHIATRIC: Denies any depression or anxiety. NEUROLOGY: Denies headache, denies any new focal deficits. EARS/NOSE/THROAT: No recent hearing change, congestion, nasal discharge or sore throat. EYES: No pain in eyes, discharge or change in vision. GASTROINTESTINAL: As per HPI. Past Medical History Past Medical History: Cancer, CVA/TIA, GERD/Reflux, Hypertension Additional Past Medical History / Comment(s): HX RENAL CALCULUS, TIA 7-8 yrs ago-, "sluggy gall bladder", elevated liver enzymes in past, Liver Cancer 11/2019 History of Any Multi-Drug Resistant Organisms: None Reported Past Surgical History: Cholecystectomy Additional Past Surgical History / Comment(s): colonoscopy, jane cataracts Past Anesthesia/Blood Transfusion Reactions: No Reported Reaction Additional Past Anesthesia/Blood Transfusion Reaction / Comm: NO FAMILY HX KNOWN Past Psychological History: No Psychological Hx Reported Smoking Status: Never smoker Past Alcohol Use History: None Reported Past Drug Use History: None Reported - Past Family History Mother Family Medical History: Unable to Obtain Additional Family Medical History / Comment(s): Patient's mother and father both when he was very young and he lived on his own starting at age 16. Patient does have some brothers but he and family do not know any other medical history. Father Family Medical History: Unable to Obtain Daughter(s) Family Medical History: Diabetes Mellitus Additional Family Medical History / Comment(s): Patient has 2 daughters one with diabetes mellitus type 2. Son(s) Family Medical History: No Reported History Additional Family Medical History / Comment(s): Patient has one son that has from lymphoma. Medications and Allergies Home Medications Medication Instructions Recorded Confirmed Type amLODIPine BES/OLMESARTAN MED 1 tab PO HS@1700 01/15/15 12/02/19 History [Elsa 10-20 mg Tablet] Loratadine 10 mg PO HS@1700 12/16/16 12/02/19 History Nexavar 200mg 200 mg PO BID 12/02/19 12/02/19 History Nitroglycerin Sl Tabs [Nitrostat] 0.4 mg SUBLINGUAL Q5M PRN 12/02/19 12/02/19 Hi story Omeprazole 20 mg PO BID PRN 12/02/19 12/02/19 History Ondansetron [Zofran] 4 mg PO Q8H PRN 12/02/19 12/02/19 History Allergies Allergy/AdvReac Type Severity Reaction Status Date / Time temazepam [From Restoril] AdvReac Unknown "Made him Verified 12/02/19 13:38 Loopy" tramadol AdvReac Unknown Unknown- Verified 12/02/19 13:38 Daughter does not want him to have. metoprolol AdvReac Nausea Verified 12/02/19 13:41 Physical Exam Vitals: Vital Signs Temp Pulse Resp BP Pulse Ox 12/03/19 14:45 76 16 119/68 95 12/03/19 14:32 78 16 120/67 95 12/03/19 14:15 75 16 122/71 95 12/03/19 07:00 97.9 F 76 16 112/64 93 L 12/03/19 02:00 97.9 F 82 16 110/69 94 L 12/02/19 19:50 97.5 F L 76 18 110/71 94 L 12/02/19 15:57 98 F 73 16 130/70 95 Intake and Output 12/03/19 12/03/19 12/03/19 06:59 14:59 22:59 Intake Total 550 Output Total 120 Balance 430 Intake: Intake, IV Titration 450 Amount Sodium Chloride 0.9% 1, 450 000 ml @ 75 mls/hr IV . [id number] [facility] Rx#:[id number] Oral 100 Output: Urine 120 Other: # Voids 4 3 On physical examination, patient appears comfortable in no apparent distress. HEAD: Normocephalic, atraumatic. EYES: No scleral icterus. No conjunctival injection. MOUTH: No lesions, tongue midline. NECK: Trachea midline, no gross abnormalities. CHEST: Decreased air entry in all lung motley. HEART: S1-S2 appreciated. ABDOMEN: Soft, mildly tender to palpation. Bowel sounds are positive. No organomegaly. No guarding or rigidity. EXTREMITIES: +1 pedal edema. SKIN: No rashes, no jaundice. NEUROLOGIC: Alert and oriented x3. No focal deficits. Results CBC & Chem 7: 12/02/19 13:16 12/03/19 06:39 Labs: Abnormal Lab Results - Last 24 Hours (Table) 12/03/19 12/03/19 Range/Units 06:39 06:39 PT 13.3 H (9.0-12.0) sec INR 1.3 H (<1.2) Sodium 133 L (137-145) mmol/L Carbon Dioxide 21 L (22-30) mmol/L BUN 26 H (9-20) mg/dL Glucose 68 L (74-99) mg/dL Calcium 7.2 L (8.4-10.2) mg/dL Total Bilirubin 5.4 H (0.2-1.3) mg/dL AST 342 H (17-59) U/L ALT 98 H (4-49) U/L Alkaline Phosphatase 900 H (38-126) U/L Total Protein 5.6 L (6.3-8.2) g/dL Albumin 2.1 L (3.5-5.0) g/dL US - abdomen: report reviewed (Successful ultrasound abdomen with paracentesis and 2.5 L of ascites removed.) Assessment and Plan (1) Elevated liver enzymes Narrative/Plan: 89-year-old male who presented due to a constellation of complaints including nausea, decreased oral intake, abdominal pain and diarrhea in the setting of hepatocellular carcinoma recently diagnosed in for which the patient is receiving chemotherapy. The patient has been doing poorly since initiation of the medication with reports of diarrhea, decreased oral intake and weakness. Patient's liver enzymes have remained elevated in stable likely secondary to his underlying disease with no distinct obstruction seen on imaging. Currently being managed by the oncology service. Current Visit: Yes Status: Acute Code(s): R74.8 - ABNORMAL LEVELS OF OTHER SERUM ENZYMES SNOMED Code(s): 332590884 (2) Ascites Current Visit: Yes Status: Acute Priority: High Code(s): R18.8 - OTHER ASCITES SNOMED Code(s): 074040518 (3) HCC (hepatocellular carcinoma) Current Visit: Yes Status: Acute Priority: High Code(s): C22.0 - LIVER CELL CARCINOMA SNOMED Code(s): 991193822 (4) Abdominal pain Current Visit: No Status: Acute Code(s): R10.9 - UNSPECIFIED ABDOMINAL PAIN SNOMED Code(s): 18973054 Plan: Supportive care Okay for diet as tolerated Ultrasound paracentesis reviewed Lasix and initiated daily Patient and family educated on low-sodium low gas producing diet including restriction of dairy and fibrous foods No plans for endoscopic evaluation at this time Overall patient appears to be doing poorly with progression of his disease noted on computed tomography scan of the abdomen, consideration is for comfort care however will defer to the expertise of the oncology service for further recommendations Thank you for allowing us to participate in the care of the patient
--- NOTE | 2019-12-04 12:01 | P.PN ---
Subjective Progress Note Date: 12/04/19 Principal diagnosis: ascites, HCC In f/u today pt is in chair, abd feels a little less distended post para, swelling in legs is resolved, no current pain, nausea. Objective - Vital Signs Vital signs: Vital Signs Temp 97.5 F L 12/04/19 08:00 Pulse 82 12/04/19 08:00 Resp 18 12/04/19 08:00 BP 118/72 12/04/19 08:00 Pulse Ox 95 12/04/19 08:00 Intake & Output 12/03/19 12/04/19 12/04/19 18:59 06:59 18:59 Intake Total 550 840 Output Total 220 340 0 Balance 330 500 0 Intake: Intake, IV Titration 450 600 Amount Sodium Chloride 0.9% 1, 450 600 000 ml @ 75 mls/hr IV . [id number] Rx#:[id number] Oral 100 240 Output: Urine 220 340 0 Other: Voiding Method Urinal # Voids 3 7 1 # Bowel Movements 1 - Constitutional General appearance: Present: cooperative, no acute distress, thin - EENT Eyes: Present: EOMI ENT: Present: hearing grossly normal - Respiratory Respiratory: bilateral: CTA (shallow) - Cardiovascular Heart sounds: normal: S1, S2 - Peripheral edema leg Peripheral Edema: bilateral: None - Gastrointestinal General gastrointestinal: Present: distended, normal bowel sounds, soft - Musculoskeletal Musculoskeletal: Present: generalized weakness - Labs CBC & Chem 7: 12/02/19 13:16 12/03/19 06:39 Assessment and Plan (1) Liver failure Current Visit: Yes Status: Acute Priority: High Code(s): K72.90 - HEPATIC FAILURE, UNSPECIFIED WITHOUT COMA SNOMED Code(s): 11287491 (2) HCC (hepatocellular carcinoma) Current Visit: Yes Status: Acute Priority: High Code(s): C22.0 - LIVER CELL CARCINOMA SNOMED Code(s): 747832372 (3) Ascites Current Visit: Yes Status: Acute Priority: High Code(s): R18.8 - OTHER ASCITES SNOMED Code(s): 585560643 (4) Dehydration Current Visit: Yes Status: Acute Priority: High Code(s): E86.0 - DEHYDRATION SNOMED Code(s): 33998556 Plan: LFTs slightly better then on admit. S/P CT abdomen. No evidence of biliary obstruction but, pending GI interpretation of image and recommendations Dr. Soto discussed with the pt and family that if hepatic failure is more consistent with progressive disease than obstruction, that could potentially be corrected then, medically speaking, there are no options left. From the standpoint of treatment, pt was started on the lowest dose of TKI due to concerns for tolerance. If his presentation is from medication effects there is not a lower dose option. All questions answered to pt and family satisfaction. Dr attests: I have performed H&P and developed impression and plan of care for patient, discussed with dictator. I agree with dictated note, documented as a scribe
[2019-12-04 12:57] VITALS: BP 105/69; PULSE 75; RESP 15
[2019-12-04] MEDS: MORPHINE SULFATE 4 MG/ML SYRINGE IV PRN (14:29)
--- NOTE | 2019-12-05 09:24 | P.DS ---
Providers Date of admission: 12/02/19 13:59 Expected date of discharge: 12/04/19 Attending physician: Norman Yin Consults: 12/02/19 14:38 Consult Physician Urgent Consulting Provider: Roshan Strickland Consult Reason/Comments: Liver cancer with elevated liver enzymes Do you want consulting provider notified?: Yes 12/03/19 08:36 Consult Physician Routine Consulting Provider: Zackery Soto Consult Reason/Comments: liver cancer Do you want consulting provider notified?: Yes Primary care physician: Rivas Samir [facility] Hospital Course: This is an 89-year-old male one of Dr. Dawson with past medical history significant for hypertension and hypertensive cardio vascular disease, history of kidney stone, TIA, GERD, enlarged prostate in January 2018, patient underwent cholecystectomy in the same time he had liver biopsy which was positive for cirrhosis. At that time there was no mass seen on the liver. Patient had a dobutamine stress test done in July 2019 that was positive. Patient was placed on Lopressor but apparently was unable to tolerate this. He had increasing abdominal pain with GERD symptoms so severe that he had to stop the Lopressor. He had significant abdominal pain since August. In October, patient was seen at [facility] and had a CAT scan done that did show a liver mass. He then presented to [facility] on October 26 and was admitted underwent a repeat CAT scan of the abdomen and pelvis that revealed a 7 cm hepatic mass consistent with cancer. Patient has been following with Dr. Hoskins and is currently on Nexavar. He had Patient complains of fatigue, nausea, decreased oral intake, no vomiting. Patient had episode of diarrhea a few days ago that resolved. He complains of increased abdominal girth and leg swelling. Family state that he has had some shortness of breath. He has been eating very little. Patient came into [facility] emergency center for evaluation. He was afebrile, heart rate 84, blood pressure 111/67 pulse ox 97% on room air. EKG was in normal sinus rhythm with no acute ST changes. WBC 12.8, hemoglobin 12.0, platelet count 196. Sodium 132, potassium 4.9, chloride 101, CO2 21, BUN 33 and creatinine 0.98, blood sugar 88. Magnesium 2.4, total bilirubin 5.9, AST 442, ALT 133, alkaline phosphatase 1027, albumin 2.7. Chest x-ray revealed mild cardiomegaly. Abdominal ultrasound revealed mild abdominal ascites. CAT scan of the abdomen and pelvis revealed progression of hepatic disease present with now diffuse involvement. Now fairly moderate amount of abdominal ascites progressed from most recent CT. There is concern for partial occlusive thrombus in the suprahepatic IVC. Patient has been admitted to the [facility] floor, consult with oncology, GI and interventional radiology for paracentesis. 12/03: Yesterday, patient underwent successful therapeutic paracentesis with removal of 2.5 L of straw-colored fluid. Patient did not have any postoperative complications. Edema in the lower extremities is improved. Patient denies any complaints of pain or nausea. The patient has been followed by oncology and believe that hepatic failure is consistent with progression of his disease and that there are no other treatment options available for him. Patient and family have decided to go with hospice care. Informational meeting was arranged and family requested the patient be discharged as soon as possible. This has been arranged. Patient discharged home in stable condition. Discharge diagnoses: 1. Abdominal pain secondary to ascites from hepatocellular carcinoma. 2. Hepatocellular carcinoma with progression of disease. 3. Possible coronary artery disease with abnormal stress test July 2019. 4. History of TIA 8 years ago with no residual. 5. Hypertension and hypertensive cardiovascular disease. 6. Severe GERD. 7. BPH. Discharge plan: Home with hospice Impression and plan of care have been directed as dictated by the signing physician. Sarah Damon nurse practitioner acting as scribe for signing physician. Patient Condition at Discharge: Good Plan - Discharge Summary New Discharge Prescriptions: New LORazepam ORAL CONC [Ativan Intensol] 2 mg PO Q4HR PRN #30 ml PRN Reason: Anxiety Atropine Ophth Soln 1% 5Ml [Isopto Atropine 1% 5Ml] 2 drops PO Q4HR PRN #1 bottle PRN Reason: Secretions MORPHINE ORAL MICHAEL CONC 20mg/mL [Roxanol Oral Soln Conc 20MG/ML] 5 mg PO Q4H PRN #30 ml PRN Reason: Pain Continue Ondansetron [Zofran] 4 mg PO Q8H PRN PRN Reason: Nausea Omeprazole 20 mg PO BID PRN PRN Reason: Gi Upset Discontinued amLODIPine BES/OLMESARTAN MED [Elsa 10-20 mg Tablet] 1 tab PO HS@1700 Loratadine 10 mg PO HS@1700 Nexavar 200mg 200 mg PO BID No Action Nitroglycerin Sl Tabs [Nitrostat] 0.4 mg SUBLINGUAL Q5M PRN PRN Reason: Chest Pain Discharge Medication List Nitroglycerin Sl Tabs [Nitrostat] 0.4 mg SUBLINGUAL Q5M PRN 12/02/19 [History] Omeprazole 20 mg PO BID PRN 12/02/19 [History] Ondansetron [Zofran] 4 mg PO Q8H PRN 12/02/19 [History] Atropine Ophth Soln 1% 5Ml [Isopto Atropine 1% 5Ml] 2 drops PO Q4HR PRN #1 bottle 12/04/19 [Rx] LORazepam ORAL CONC [Ativan Intensol] 2 mg PO Q4HR PRN #30 ml 12/04/19 [Rx] MORPHINE ORAL MICHAEL CONC 20mg/mL [Roxanol Oral Soln Conc 20MG/ML] 5 mg PO Q4H PRN #30 ml 12/04/19 [Rx] Follow up Appointment(s)/Referral(s): Rivas Dawson MD [Primary Care Provider] - As Needed Patient Instructions/Handouts: Lorazepam (By mouth), Atropine (Into the eye), Morphine, Slow Release (By mouth), Dehydration (DC), Acute Liver Failure (DC), Liver Cancer (DC), Ascites (DC) Discharge Disposition: HOME WITH HOSPICE
--- NOTE | 2019-12-07 14:57 | CDI ---
Documentation Clarification Form Date: 12/07/2019 02:32:56 PM From: Renetta Mandujano RN CCDS Admit Date: 12/02/2019 01:59:00 PM Patient Name: Rivas Caballero Visit Number: [id number] Discharge Date: 12/04/2019 03:43:00 PM ATTENTION: The Clinical Documentation Specialists (CDI) and [facility] Coding Staff appreciate your assistance in clarifying documentation. Please respond to the clarification below the line at the bottom and electronically sign. The CDI & [facility] Coding staff will review the response and follow-up if needed. Please note: Queries are made part of the Legal Health Record. If you have any questions, please contact the author of this message via ITS. Dr. Norman Yin There is concern for partial occlusive thrombus in the suprahepatic IVC. Is documented in the H&P dated 12/02 and in the Discharge Summary dated 12/03 History/Risk Factors: 89-year-old male presents to the ED with nausea, abdominal pain, diarrhea and decreased oral intake. The patient has hepatocellular carcinoma recently diagnosed and receiving chemotherapy. Clinical indicators: 12/01 VSS 111/67 84 97.7 20 7% ra 3 Labs AST 442, Alt 133, Alk Phos 1027, Albumin 2.7, Na 132, Calcium 8.0 Mag 2.[address] of abdomen 3 New round low density area in the suprahepatic IVC axial image 14 and coronal image 58 suspicious for partial occlusive thrombus. GI Consult 3/ Patients liver enzymes have remained elevated in stable likely secondary to his underlying disease with no distinct obstruction seen on imaging. Treatment: Discharged home to hospice. Clinical significance of diagnostic testing and treatment CANNOT be assumed or coded without physician documentation of significance if any. Please clarify what Partial Occlusive Thrombus in the suprahepatic IVC signifies: * Thrombus in the suprahepatic IVC Ruled Out * Disease process, please specify * Abnormal CT finding * Unable to determine * Other, please specify (Last Revision: July 2017) Partial occlusive thrombus of the IVC unable to determine its importance MTDD
== END 2019-12-04 15:43 | disposition hospice, home (50) | DRG 435 ==
LOC: EC 12:04 → 4SSUR 13:59 → 5NMEDONC 12-03 14:08
PROVIDERS: ADMIT Internal Medicine; ATTEND Internal Medicine
PROC: 0W9G3ZZ Drainage of Peritoneal Cavity, Percutaneous Approach (ICD-10-PCS; principal; 2019-12-03)
DX: C22.0 Liver cell carcinoma (principal); I82.220 Acute embolism and thrombosis of inferior vena cava; R18.8 Other ascites; C78.6 Secondary malignant neoplasm of retroperitoneum and peritoneum; K72.90 Hepatic failure, unspecified without coma; I11.9 Hypertensive heart disease without heart failure; K74.60 Unspecified cirrhosis of liver; E86.0 Dehydration; K21.9 Gastro-esophageal reflux disease without esophagitis; N40.0 Benign prostatic hyperplasia without lower urinary tract symptoms; I25.10 Atherosclerotic heart disease of native coronary artery without angina pectoris; R63.0 Anorexia; E87.70 Fluid overload, unspecified; Z51.5 Encounter for palliative care; Z68.28 Body mass index [BMI] 28.0-28.9, adult; Z79.899 Other long term (current) drug therapy; Z92.21 Personal history of antineoplastic chemotherapy; Z98.42 Cataract extraction status, left eye; Z86.73 Personal history of transient ischemic attack (TIA), and cerebral infarction without residual deficits; Z98.41 Cataract extraction status, right eye; Z87.442 Personal history of urinary calculi; Z90.49 Acquired absence of other specified parts of digestive tract; Z88.5 Allergy status to narcotic agent; Z88.8 Allergy status to other drugs, medicaments and biological substances; Z83.3 Family history of diabetes mellitus
CPT/HCPCS: 36415; 49083; 71046; 74160; 76705; 80053; 81001; 83735; 84100; 85025; 85610; 85730; 87324; 93005; 96361; 96374; 96375; 99285

== ENCOUNTER 2020-01-18 08:39 | Day surgery (SDC) | payer BC ==
[2020-01-18 08:58] VITALS: RESP 20; TEMP 97.5
[2020-01-18 09:18] LABS: Mean Platelet Volume 8.1; Platelet Count 248 k/uL (150-450)
[2020-01-18 09:40] LABS: INR 1.3 (<1.2); Prothrombin Time 12.7 sec (9.0-12.0)
[2020-01-18 11:11] VITALS: BP 96/53; PULSE 85
--- NOTE | 2020-01-18 11:22 | US ---
Ultrasound-guided paracentesis. DATE OF EXAM: 01/18/2020 CLINICAL HISTORY: Ascites The procedure was discussed with the patient. The risks, complications, benefits, and alternatives we re discussed and any questions were answered. Informed consent was obtained. The patient was placed s upine on the ultrasound table and prepped and draped in the usual sterile fashion. All elements of maximal barrier technique were utilized. Under ultrasound guidance, access into the right lower quadrant was obtained, via the paracentesis catheter system and direct ultrasound guidanc e. Approximately 7.8 liters of straw-colored fluid was removed. The patient was stable throughout the pr ocedure and remained stable upon discharge from Department of Radiology. IMPRESSION: Successful paracentesis under ultrasound guidance.
== END 2020-01-18 11:30 | disposition hospice, home (50) ==
LOC: RADPROMAIN 08:39
PROVIDERS: ATTEND Internal Medicine Hematology & Oncology
DX: R18.8 Other ascites (principal); C22.0 Liver cell carcinoma
CPT/HCPCS: 36415; 49083; 85049; 85610